=== PATIENT | male | born 1975 | race Hispanic/Latino ===

== ENCOUNTER 2023-02-10 19:52 | Emergency (ER) | payer BC ==
--- OUTSIDE RECORDS SUMMARY | 2023-02-10 19:56 | XMS REPORT | Continuity of Care Document ---
:1975 Author Organization [facility] t Address [address] [place] [address] [place] [id number] Care Team Providers Name Role Phone PCP, PATIENT DOES NOT HAVE A Primary Care Physician UnavailARIES Resendiz Attending Clinician Unavailable Aries Kearney MD Attending Clinician SHANNON ROJAS Attending Clinician Unavailable Shannon Rojas MD Attending Clinician ANTOINE GARCIA Attending Clinician Unavailable ANTOINE GARCIA Attending Clinician Unavailable Doctor Unassigned, [place] Attending Clinician Unavailable Luis Newton MD Attending Clinician LUIS NEWTON Attending Clinician Unavailable ARIES KEARNEY Admitting Clinician Unavailable SHANNON ROJAS Admitting Clinician Unavailable Problems Condition Condition Condition Status Onset Resolution Last Treating Co mments Source Name Details Category Date Date Treatment Clinician Date Essential Essential Disease Active 2017-08 Uni vers hypertensi hypertensi 2-03 it y of on on 00:00: [address] Drug abuse Drug abuse Disease Active 2017-08 U nivers 2-03 ity of 00:00: [address] Family Family Disease Active 2017-08 Univers history of history of 2-03 [place] of early CAD [place] [address] [place] [address] Obesity Obesity Disease Active 2017-08 Univers (BMI (BMI 2-02 ity of 30-39.9) 30-39.9) 00:00: [place] 00 [facility] Chest pain Chest pain Disease Active 2017-08 U nivers 09-15 ity of 00:00: [place] 00 [facility] Allergies, Adverse Reactions, Alerts Allergy Allergy Status Severity Reaction(s) Onset Inactive Treating Comm ents Source Name Type Date Date Clinician CODEINE DRUG Active Unknown-Cmnt Uni vers INGREDI 6-10 ity of 00:00: [place] 00 Medical Branch Codeine Propensi Active Unknown - constipat U nivers ty to See comments 6- ion ity of adverse 00:00: [place] reaction 00 Medical s Branch HYDROCOD DRUG Active Other-Cmnt 2017-08 Univ ers ONE INGREDI 09-15 ity of 00:00: [place] 00 Medical Branch Hydrocod Propensi Active Other - See 2017-08 Constipa t Univers one ty to comments 09-15 ion ity of adverse 00:00: [place] reaction 00 [facility] s Branch Social History Social Habit Start Date Stop Date Quantity Comments Source History of Snuff User University of tobacco use [facility] Exposure to 2022-12-10 2022-12-20 Not sure University of SARS-CoV-2 00:00:00 22:39:00 [facility] (event) [place] Alcohol intake 2022-12-20 2022-12-20 Current drinker Unive rsity of 00:00:00 00:00:00 of alcohol [facility] (finding) [place] Tobacco use and 2018-07-15 2018-07-15 User of smokeless Un iversity of exposure 00:00:00 00:00:00 tobacco [facility] Alcohol Comment 2018-07-15 2018-07-15 a couple of beers Un iversity of 00:00:00 00:00:00 a day [facility] Sex Ass[birth year] At [birth year] Universit y of 00:00:00 00:00:00 [facility] Smoking Status Start Date Stop Date Source Ex-smoker 2018-07-15 00:00:00 2018-07-15 00:00:00 Universi ty of [facility] Medications Ordered Filled Start Stop Current Ordering Indication Dosage Frequency Signature Comments Components Source Medication Medication Date Date Medication? Clinician (SIG) Name Name lactulose 2022- No 30mL 30 mL, Unive rs (CEPHULAC) 5- 05-10 Oral, ity of solution 30 05:00: 04:57 [place]CE[place] 1 [place] :00 dose, On Medical Wed Branch 12/21/22 at 0000, LUMA NaCl 0.9% 2022- No 1000mL at 999 Uni vers (NS) bolus 510 05-10 mL/hr, ity of infusion 04:00: 06:08 1,000 mL, [place] 1,000 mL 00 :00 IV Medical Infusion, Branch ONCE, 1 dose, On [facility] 12/20/22 at 2300, STAT furosemide 2022- No 40mg 40 mg, IV U nivers (LASIX) 12-21 05-10 Push, ity of injection 04:00: 04:20 ONCE, 1 [place] 40 mg 00 :00 dose, On [facility] 12/20/22 Branch at 2300, LUMA ipratropium 2022- No 3mL 3 mL, Univ ers -albuteroL 12-21 05-10 Inhalation it y of (DUONEB) 04:00: 04:15 , ONCE, 1 [place] 0.5 mg-3 00 :00 dose, On Medical mg(2.5 mg Mon12/20/22 Bran ch base)/3 mL at 2300, nebulizer LUMA solution 3 mL methylpredn 2022- No 125mg 125 mg, IV Univers isolone sod 12-21-10 Piggyback, i ty of succ 04:00: 04:20 ONCE, 1 [place] (SOLU-MEDRO 00 :00 dose, On Medi srikanth L) [facility] 12/20[facility]22 Branch injection at 2300, 125 mg STAT aspirin 2022- No 325mg 325 mg, Unive rs tablet 325 12-21 05-10 Oral, ity of mg 03:45: 03:50 ONCE, 1 [place] 00 :00 dose, On Medical [facility] 12/20/22 Branch at 2245, STAT nisoldipine 2022-0 Yes 20mg Take 20 mg Univers (SULAR 5-10 by mouth ity of ORAL) 00:44: daily. [address] LISINOPRIL 2022-0 Yes Take by Univ ers ORAL 5-10 mouth. ity of 00:44: [address] polyethylen 2022-0 Yes [id number] 1{packe Take 1 Univers e glycol 5-10 t} Packet by ity of 3350 00:00: mouth [place] (MIRALAX) 00 every 2 Medical 17 gram (two) Branch powder hours as needed for Constipati on for up to 12 doses. ondansetron Yes [id number] 4mg Take 1 Univers 4 mg 5-10 tablet by ity of disintegrat 00:00: mouth [place] ing tablet 00 every 8 Medica l (eight) Branch hours as needed for Nausea and Vomiting (N/V) for up to 10 doses. albuterol Yes [id number] 2{puff} Inhale 2 Univers 90 5-10 Puffs ity of mcg/actuati 00:00: every 4 [place] on inhaler 00 (four) Medical hours as Branch needed for Wheezing or Shortness of Breath. predniSONE 0 2022- Yes [id number] 20mg Take 1 Univers 20 mg 5-10 05-13 tablet by ity of tablet 00:00: 04:59 mouth in [place] 00 :00 the Medical morning Branch and 1 tablet in the evening. Do all this for 2 days. glycerin/mi 2022- Yes [id number] 225mL Insert 225 Univers neral oil, 5-10 05-11 mL into ity o f AGLO ENEMA, 00:00: 04:59 rectum [place] Enem 00 :00 once now Medical for 1 Branch dose. FENTanyl PF 2022- No 50ug 50 mcg, Un grupo (SUBLIMAZE 2-15 02-15 Slow IV ity o f (PF)) 08:45: 08:07 Push, [place] injection 00 :00 ONCE, 1 Medical 50 mcg dose, On Branch Mon09/28/22 at 0245, Routine iopamidol 0 2022- No [id number] 100mL 100 mL, Univers (ISOVUE 2-15 02-15 Intravenou ity o f 370-500 mL) 07:45: 07:45 s, ONCE, 1 [place] injection 00 :00 dose, On Medica l 100 mL Mon09/28/22 at 0145, Routine NaCl 0.9% Yes 1000mL at 999 Univ ers (NS) IV 2-15 mL/hr, ity of infusion 06:45: Intravenou [place] 1,000 mL 00 s, Medical CONTINUOUS Branch , Starting on Mon09/28/22 at 0045, Until Discontinu ed, Routine ketorolac 2022- No 30mg 30 mg, Unive rs (TORADOL) 2-15 -15 Slow IV ity of injection 06:45: 05:54 Push, [place] 30 mg 00 :00 ONCE, 1 Medical dose, On Branch Mon09/28/22 at 0045, Routine dicyclomine 0 Yes [id number] 20mg Take 1 Univers 20 mg 2-15 tablet by ity of tablet 00:00: mouth [place] 00 every 6 Medical (six) Branch hours as needed for Abdominal pain. ondansetron 0 Yes [id number] 4mg Take 1 Univers (ZOFRAN) 4 2-15 tablet by ity of mg tablet 00:00: mouth [place] 00 every 8 Medical (eight) Branch hours as needed for Nausea and Vomiting (N/V). pantoprazol 0 Yes [id number] 40mg Take 1 Univers e 2-15 tablet by ity of (PROTONIX) 00:00: mouth in [place] 40 mg EC 00 the Medical tablet morning. Branch dicyclomine 0 Yes [id number] 20mg Take 1 Univers 20 mg 2-15 tablet by ity of tablet 00:00: mouth [place] 00 every 6 Medical (six) Branch hours as needed for Abdominal pain. ondansetron 0 Yes [id number] 4mg Take 1 Univers (ZOFRAN) 4 2-15 tablet by ity of mg tablet 00:00: mouth [place] 00 every 8 Medical (eight) Branch hours as needed for Nausea and Vomiting (N/V). pantoprazol 0 Yes [id number] 40mg Take 1 Univers e 2-15 tablet by ity of (PROTONIX) 00:00: mouth in [place] 40 mg EC 00 the Medical tablet morning. Branch gentamicin 2021-08- No 2[drp] 2 Drop, U nivers (GENOPTIC) 006-09 Left Eye, ity of 0.3 % 17:00: 17:03 ONCE, 1 [place] ophthalmic 00 :00 dose, On Medic al drops 2 [place] Branch Drop 06/09/22 at 1200, LUMA tetracaine 2021-08- No 2[drp] 2 Drop, U nivers (PONTOCAINE 0-27 06-09 Left Eye, it y of ) 0.5 % 15:36: 15:45 ONCE, 1 [place] ophthalmic 00 :00 dose, On Medic al drops 2 [facility] Branch Drop 06/09/22 at 1045, Routine LISINOPRIL 2021-08 Yes Take by [facility] ers ORAL 0-27 mouth. ity of 09:32: [address] LISINOPRIL 2021-08 Yes Take by [facility] ers ORAL 0-27 mouth. ity of 09:32: [address] gentamicin 2021-08- No [id number] 1[drp] Place 1 Univers 0.3 % 0-27 06-15 [id number] Drop in ity of ophthalmic 00:00: 04:59 [place] drops 00 :00 every 1 Medical (one) hour Branch for 5 days. ketorolac 2021-08- No [id number] 1[drp] Place 1 Univers 0.4 % 0-06-13 [id number] Drop in ity of ophthalmic 00:00: 04:59 left eye 4 [place] solution 00 :00 (four) Medical times Branch daily for 3 days. ketorolac 2019- No 30mg 30 mg, Unive rs (TORADOL) 01-09 Slow IV ity of injection 03:45: 02:44 Push, [place] 30 mg 00 :00 ONCE, 1 Medical dose, [facility] Branch 01/09/20 at 2245, Routine
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 [address] nisoldipine 2017-08 Yes 20mg Take 20 mg Univers (SULAR 2-04 by mouth ity of ORAL) 21:32: daily. [address] nisoldipine 2017-08 Yes 20mg Take 20 mg Univers (SULAR 2-04 by mouth ity of ORAL) 21:32: daily. [address] nisoldipine 2017-08 Yes 20mg Take 20 mg Univers (SULAR 2-04 by mouth ity of ORAL) 15:32: daily. [address] nisoldipine 2017-08 Yes 20mg Take 20 mg Univers (SULAR 2-04 by mouth ity of ORAL) 15:32: daily. [address] nisoldipine 2018- Yes 20mg Take 20 mg Univers (SULAR 2-04 by mouth ity of ORAL) 15:32: daily. [address] Immunizations Ordered Filled Immunization Date Status Comments [facility] Immunization Name Name Influenza Virus 2018-07-17 Completed Universit y of Vaccine Quad .5 mL 00:00:00 [facility] IM 6+ [place] Branch Influenza Virus 2018-07-17 Completed Universit y of Vaccine Quad .5 mL 00:00:00 [facility] IM 6+ [place] Branch Influenza Virus 2018-07-17 Completed Universit y of Vaccine Quad .5 mL 00:00:00 [facility] 6+ MO Branch Influenza Virus 2018-07-17 Completed Universit y of Vaccine Quad .5 mL 00:00:00 [facility] 6+ MO Branch Influenza Virus 2018-07-17 Completed Universit y of Vaccine Quad .5 mL 00:00:00 [facility] 6+ MO Branch Influenza Virus 2018-07-17 Completed Universit y of Vaccine Quad .5 mL 00:00:00 [facility] 6+ MO Branch Influenza Virus 2018-07-17 Completed Universit y of Vaccine Quad .5 mL 00:00:00 [facility] 6+ MO Branch Vital Signs Vital Name Observation Time Observation Value Comments Source Systolic blood 2022-12-21 06:00:00 154 mm[Hg] Univer sity of pressure [facility] Diastolic blood 2022-12-21 06:00:00 93 mm[Hg] Unive rsity of pressure [facility] Heart rate 2022-12-21 06:00:00 71 /min [facility] Respiratory rate 2022-12-21 06:00:00 18 /min [facility] acute hospital Oxygen saturation in 2022-12-21 06:00:00 97 /min [facility] Arterial blood by [facility] Pulse oximetry [place] Body temperature 2022-12-21 03:40:00 36.72 Louise [facility] Body height 2022-12-21 03:40:[address] [facility] Body weight 2022-12-21 03:40:[address] [facility] BMI 2022-12-21 03:40:00 33.45 kg/m2 [facility] [place] [facility] Systolic blood 2022-09-28 08:07:00 130 mm[Hg] Univer sity of pressure [place] [facility] Diastolic blood 2022-09-28 08:07:00 83 mm[Hg] Unive rsity of pressure [place] [facility] Heart rate 2022-09-28 08:07:00 67 /min [facility]i ty [facility] [place] [facility] Respiratory rate 2022-09-28 08:07:00 17 /min Univ ersity of [place] [facility] Oxygen saturation in 2022-09-28 08:07:00 99 /min University of Arterial blood by [place] Medi srikanth Pulse oximetry Branch Body temperature 2022-09-28 04:45:00 36.61 Louise Univ ersity [facility] [place] [facility] Body height 2022-09-28 04:45:00 172.7 cm [facility] [place] [facility] Body weight 2022-09-28 04:45:00 106.595 kg [facility] [place] [facility] BMI 2022-09-28 04:45:00 35.73 kg/m2 [facility] [place] [facility] Systolic blood 2022-06-09 14:16:00 157 mm[Hg] Univer sity of pressure [place] [facility] Diastolic blood 2022-06-09 14:16:00 88 mm[Hg] Unive rsity of pressure [place] [facility] Heart rate 2022-06-09 14:16:00 84 /min [facility] [place] [facility] Body temperature 2022-06-09 14:16:00 36.94 Louise Univ ersity [facility] [place] [facility] Respiratory rate 2022-06-09 14:16:00 18 /min Univ ersity [facility] [place] [facility] Body height 2022-06-09 14:16:00 172.7 cm [facility] [place] [facility] Body weight 2022-06-09 14:16:00 106.595 kg [facility] [place] [facility] BMI 2022-06-09 14:16:00 35.73 kg/m2 [facility] [place] [facility] Oxygen saturation in 2022-06-09 14:16:00 97 /min University of Arterial blood by [place] Medi srikanth Pulse oximetry Branch Heart rate 2020-01-24 03:42:11 69 /min [facility] [place] [facility] Body temperature 2020-01-24 03:42:11 36.44 Louise Univ ersity [facility] [place] [facility] Respiratory rate 2020-01-24 03:42:11 20 /min Univ ersity [facility] [place] [facility] Systolic blood 2020-01-24 03:40:00 154 mm[Hg] Univer sity of pressure [place] [facility] Diastolic blood 2020-01-24 03:40:00 98 mm[Hg] Unive rsity of pressure [place] [facility] Body height 2020-01-24 03:40:00 170.2 cm [facility] [place] [facility] Body weight 2020-01-24 03:40:00 106.595 kg [facility] [place] [facility] BMI 2020-01-24 03:40:00 36.81 kg/m2 [facility] [place] [facility] Systolic blood 2020-01-22 20:58:22 171 mm[Hg] Univer sity of pressure [place] [facility] Diastolic blood 2020-01-22 20:58:22 105 mm[Hg] Unive rsity of pressure [place] [facility] Body temperature 2020-01-22 20:58:22 36.44 Louise Univ ersity [facility] [place] [facility] Respiratory rate 2020-01-22 20:58:22 20 /min Univ ersity [facility] [place] [facility] Heart rate 2020-01-22 20:52:00 103 /min [facility] [place] [facility] Body height 2020-01-22 20:52:00 170.2 cm [facility] [place] [facility] Body weight 2020-01-22 20:52:00 104.327 kg [facility] [place] [facility] BMI 2020-01-22 20:52:00 36.02 kg/m2 [facility] [place] [facility] Oxygen saturation in 2020-01-22 20:52:00 98 /min University of Arterial blood by [place] [employer] [facility]rikanth Pulse oximetry Branch Systolic blood 2020-01-10 02:30:00 154 mm[Hg] Univer sity of pressure [place] [facility] Diastolic blood 2020-01-10 02:30:00 105 mm[Hg] Unive rsity of pressure [facility] [place] [facility] Heart rate 2020-01-10 02:30:00 83 /min [facility] [place] [facility] Respiratory rate 2020-01-10 02:30:00 23 /min Univ ersity [facility] [place] [facility] Oxygen saturation in 2020-01-10 02:30:00 98 /min University of Arterial blood by [employer] srikanth Pulse oximetry Branch Body temperature 2020-01-10 00:26:00 36.89 Louise [facility] Body height 2020-01-10 00:26:[address] [facility] Body weight 2020-01-10 00:26:[address] [facility] BMI 2020-01-10 00:26:00 35.73 kg/m2 [facility] Procedures Procedure Date / Time Performing Clinician Source Performed D-DIMER 2022-12-21 04:56:00 Aries Kearney [facility] RAPID STREP SCREEN FOR 2022-12-21 04:18:00 Aries Kearney [facility] GROUP A [facility] COVID-19 (ID NOW RAPID 2022-12-21 04:18:00 Aries Kearney [facility] TESTING) [facility] XR ABDOMEN 2 VW 2022-12-21 04:16:00 Aries Kearney [facility] XR CHEST 2 VW 2022-12-21 04:01:00 Aries Kearney [facility] LIPASE 2022-12-21 03:54:00 Aries Kearney [facility] TROPONIN I 2022-12-21 03:54:00 Aries Kearney [facility] COMP. METABOLIC PANEL 2022-12-21 03:54:00 Aries Kearney [facility] ([id number]) [facility] CBC WITH DIFF 2022-12-21 03:54:00 Aries Kearney [facility] CONSENT/REFUSAL FOR 2022-12-21 03:35:49 Doctor Unassigned, No [facility] DIAGNOSIS AND TREATMENT Name Medical Branch LIPASE 2022-09-28 05:53:00 Shannon Rojas [facility] COMP. METABOLIC PANEL 2022-09-28 05:53:00 Shannon Rojas [facility] ([id number]) [facility] CBC WITH DIFF 2022-09-28 05:53:00 Shannon Rojas [facility] NOTICE OF PRIVACY 2022-09-28 04:21:22 Doctor Unassigned, No [facility] PRACTICES Name Medical Branch CONSENT/REFUSAL FOR 2022-09-28 04:20:50 Doctor Unassigned, No [facility] Name Medical Branch CONSENT/REFUSAL FOR 2022-06-09 14:12:56 Doctor [facility]igned, [facility] Name Medical Branch CT HEAD WO CONTRAST 2020-01-24 04:29:39 Shannon Rojas [facility] CONSENT/REFUSAL FOR 2020-01-24 03:34:06 Doctor Unassigned, No [facility]AT[facility] Name [facility] Branch CREATINE KINASE 2020-01-22 21:04:00 [facility] TROPONIN I 2020-01-22 21:04:[facility] 2020-01-22 21:04:00 Luis Newton [facility] ([id number]) (ALB,T.PRO,BILI [facility] Branch T,BU/BC,ALT,AST,ALK PHOS) BASIC METABOLIC PANEL 2020-01-22 21:04:00 Herbie Luis [facility] (NA, K, CL, CO2, Medical Branch GLUCOSE, BUN, CREATININE, CA) CBC WITH DIFFERENTIAL 2020-01-22 21:04:00 Herbie [facility] PROTHROMBIN TIME / INR 2020-01-22 21:04:00 Herbie Luis [facility] ACTIVATED PARTIAL 2020-01-22 21:04:00 Herbie [facility] THRMPLAS LEENA [facility] EKG-12 LEAD 2020-01-22 21:03:26 Herbie [facility] HEAD WO CONTRAST 2020-01-10 01:59:59 Shannon Rojas [facility] ADC / LCC - DRUG SCREEN 2020-01-10 01:37:00 Shannon Rojas [facility] TRIAGE Medical Branch COVID-19 (ID NOW RAPID 2020-01-10 01:37:[address] [facility] TESTING) Medical Branch LIPASE 2020-01-10 01:34:00 Shannon Rojas [facility] MAGNESIUM 2020-01-10 01:34:00 Shannon Rojas [facility] TROPONIN I 2020-01-10 01:34:00 Shannon Rojas [facility] COMP. METABOLIC PANEL 2020-01-10 01:34:00 Shannon Rojas [facility] ([id number]) [facility] CBC WITH DIFFERENTIAL 2020-01-10 01:34:00 Shannon Rojas [facility] EKG-12 LEAD 2020-01-10 01:20:08 Shannon Rojas [facility] NOTICE OF PRIVACY 2020-01-10 00:17:43 Doctor Unassigned, No Univ [facility] PRACTICES Name Medical Branch CONSENT/REFUSAL FOR 2020-01-10 00:17:22 Doctor Unassigned, No Un [facility] DIAGNOSIS AND TREATMENT Name [facility] Encounters Start End Encounter Admission Attending Care Care Encounter Source Date/Time Date/Time Type Type Clinicians Facility Department ID 2022-12-20 2022-12-21 [id number] Univers 22:45:00 01:16:[address] [facility] 2022-12-20 2022-12-21 [facility] [id number] Univers 22:45:00 01:16:00 Aries CAMACHO [id number] i ty [facility] [id number] [facility] [id number] [address] 2022-09-27 2022-09-28 Emergency X [facility] ERT [id number] Univers 22:48:00 02:20:[address] [facility] 2022-09-27 2022-09-28 Emergency Pending sale to [facility] [id number] Univers 22:48:00 02:20:00 Shannon Mario NARINDER [id number] ity [facility] [id number] [facility] [id number] [address] 2022-06-09 2022-06-09 Emergency X ANTOINE GARCIA [facility] 1 [id number] Univers 09:17:00 12:10:00 ANTOINE GARCIA itsabina of [facility] 2022-06-09 2022-06-09 Emergency David, [facility] [id number] Univers 09:17:00 12:10:00 Antoine CAMACHO [id number] i ty [facility] [id number] [facility] [id number] [address] 2022-06-09 2022-06-09 Orders Doctor [facility] [id number] Univers 00:00:00 00:00:00 Only Unassigned, GIANNA [id number] ity of [facility] [id number] [facility] [id number] [address] 2020-01-23 2020-01-24 Emergency X [facility] ERT [id number] Univers 22:46:07 00:19:00 SHANNON ruiz [facility] 2020-01-23 2020-01-24 Emergency Pending sale to [facility] [id number] Univers 22:46:07 00:19:00 Clifforddaisygerardo Martin Narinder [id number] ity of [place] [id number] [facility] [id number] [address] 2020-01-22 2020-01-22 Emergency [facility] [id number] Univers 15:47:57 16:43:00 Luis [place] [id number] i ty of [place] [id number] [facility] [id number] [address] 2020-01-22 2020-01-22 Emergency X [facility] ERT [id number] Univers 15:47:57 15:47:57 LUIS reysabina [facility] 2020-01-09 2020-01-09 Emergency Shannon Rojas [facility] [id number] Univers 19:21:02 22:02:00 Deidrealison Cliffordarnie Camacho [id number] ity of [place] [id number] [facility] [id number] [place] [id number] Branch 2020-01-09 2020-01-09 Emergency X CRYSTAL MEALON ERT [id number] Univers 19:21:02 22:02:00 SHANNON ruiz [facility] Results Test Description Test Time Test Comments Results Result Comments Source Troponin I 2022-12-21 04:30:03 Test Item Value Reference Range Interpretation Comme nts TROPONIN I (test code = 2976413317) 0.003 ng/mL <=0.034 JAZZMINE (test code = JAZZMINE) Reference (Normal) Range (defined by the 99th percentile reference limit): <= 0.034 ng/mL Note: Cardiac troponin begins to rise 3-4 hours after the onset of ischemia. Repeat in 4-6 hours if the sample was drawn within 3-4 hours of the onset of the symptom and found normal. Diagnosis of myocardial injury is made with acute changes in cTn concentrations with at least one serial sample above the 99th percentile upper reference limit (URL), taken together with the patient's clinical presentation. Biotin has been reported to cause a negative bias, interpret results relative to patient's use of biotin. Lab Interpretation (test code = Normal 66863-8) [facility] ([id number][facility]2022-12-21 04:17:01 Test Item Value Reference Range Interpretation Comments NA (test code = 136 mmol/L 135-145 4841999363) K (test code = 4.6 mmol/L 3.5-5.0 8749016150) CL (test code = 101 mmol/L 98-108 0888330326) CO2 TOTAL (test code = 24 mmol/L 23-31 7629403657) AGAP (test code = 11 2-16 7540215944) BUN (test code = 11 mg/dL 7-23 4506100330) GLUCOSE (test code = 107 mg/dL 70-110 1704269460) CREATININE (test code = 1.27 mg/dL 0.60-1.25 H 6530738271) TOTAL BILI (test code = 0.5 mg/dL 0.1-1.4 [id number]) CALCIUM (test code = 9.5 mg/dL 8.6-10.6 3726646364) T PROTEIN (test code = 8.1 g/dL 6.3-8.2 5724847835) ALBUMIN (test code = 4.8 g/dL 3.5-5.0 7242246458) ALK PHOS (test code = 60 U/L 34-122 0884754556) ALTv (test code = 32 U/L 5-50 1742-6) AST(SGOT) (test code = 28 U/L 13-40 3958615415) eGFR (test code = 61.3 mL/min/1.73m2 3196066237) JAZZMINE (test code = JAZZMINE) Association of Glomerular Filtration Rate (GFR) and Staging of Kidney Disease* + --+ --+ ------+| GFR (mL/min/1.73 m2) ?| With Kidney Damage ?| ?Without Kidney Damage+ --------+ --------+ +| ?>90 ?| ?Stage one ?| ? Normal ?+ ---+ ---+ -------+| ?60-89 ?| ?Stage two ?| ? Decreased GFR ? + --+ --+ ------+| ?30-59 ?| ?Stage three ?| ? Stage three ? + --+ --+ ------+| ?15-29 ?| ?Stage four ? | ? Stage four ?+ ---+ ---+ -------+| ?<15 (or dialysis) ? ?| ?Stage five ? | ? Stage five ?+ ---+ ---+ -------+ *Each stage assumes the associated GFR level has been in effect for at least three months. ?Stages 1 to 5, with or without kidney disease, indicate chronic kidney disease. Notes: Determination of stages one and two (with eGFR >59mL/min/1.73 m2) requires estimation of kidney damage for at least three months as defined by structural or functional abnormalities of the kidney, manifested by either:Pathological abnormalities or Markers of kidney damage (including abnormalities in the composition of the blood or urine or abnormalities in imaging tests). Lab Interpretation Abnormal (test code = 39914-8) [facility] [id number] 04:16:20 Test Item Value Reference Range Interpretation Comments LIPASE (test code = 8638031375) 74 U/L 0-220 Lab Interpretation (test code = Normal 72020-9) [facility] with [id number] 04:05:41 Test Item Value Reference Range Interpretation Comments WBC (test code = 5.63 See_Comment [Automated 6690-2) message] The sy stem which generated this result transmitted reference range : 4.20 - 10.70 10*3/?L. The reference range was not used to interpret this result as normal/abnormal . RBC (test code = 4.92 See_Comment [Automated 789-8) message] The sy stem which generated this result transmitted reference range : 4.26 - 5.52 10*6/?L. The reference range was not used to interpret this result as normal/abnormal . HGB (test code = 16.2 g/dL 12.2-16.4 718-7) HCT (test code = 46.8 % 38.4-49.3 4544-3) MCV (test code = 95.1 fL 81.7-95.6 787-2) MCH (test code = 32.9 pg 26.1-32.7 H 785-6) MCHC (test code = 34.6 g/dL 31.2-35.0 786-4) RDW-SD (test code = 43.6 fL 38.5-51.6 85785-2) RDW-CV (test code = 12.4 % 12.1-15.4 788-0) PLT (test code = 274 See_Comment [Automated 777-3) message] The sy stem which generated this result transmitted reference range : 150 - 328 10*3/ ?L. The reference r leonarda was not used to interpret this result as normal/abnormal . MPV (test code = 9.8 fL 9.8-13.0 63991-0) NRBC/100 WBC (test 0.0 See_Comment [Automat ed code = 3102442835) message] The system which generated this result transmitted reference range : 0.0 - 10.0 /100 WBCs. The refer ence range was not u sed to interpret th is result as normal/abnormal . NRBC x10^3 (test code See_Comment [Auto mated = 9634826669) message] The s ystem which generated this result transmitted reference range : 10*3/?L. The reference range was not used to interpret this result as normal/abnormal . GRAN MAT (NEUT) % 62.9 % (test code = 770-8) IMM GRAN % (test code 0.90 % = 9606793015) LYMPH % (test code = 26.1 % 736-9) MONO % (test code = 8.2 % 5905-5) EOS % (test code = 1.2 % 713-8) BASO % (test code = 0.7 % 706-2) GRAN MAT x10^3(ANC) 3.54 10*3/uL 1.99-6.95 (test code = 8230154784) IMM GRAN x10^3 (test 0.05 10*3/uL 0.00-0.06 code = 0226770172) LYMPH x10^3 (test code 1.47 10*3/uL 1.09-3.23 = 731-0) MONO x10^3 (test code 0.46 10*3/uL 0.36-1.02 = 742-7) EOS x10^3 (test code = 0.07 10*3/uL 0.06-0.53 711-2) BASO x10^3 (test code 0.04 10*3/uL 0.01-0.09 = 704-7) Lab Interpretation Abnormal (test code = 66237-3) [facility]. METABOLIC PANEL ([id number])2022-09-28 06:22:14 Test Item Value Reference Range Interpretation Comments NA (test code = 136 mmol/L 135-145 6846643095) K (test code = 4.3 mmol/L 3.5-5.0 6329345489) CL (test code = 103 mmol/L 98-108 5904197297) CO2 TOTAL (test code 25 mmol/L 23-31 = 7887577923) AGAP (test code = 8 2-16 0703842471) BUN (test code = 12 mg/dL 7-23 0002490284) GLUCOSE (test code = 107 mg/dL 70-110 7602020379) CREATININE (test code 0.71 mg/dL 0.60-1.25 = 5020975439) TOTAL BILI (test code 0.4 mg/dL 0.1-1.1 = 0036960694) CALCIUM (test code = 8.7 mg/dL 8.6-10.6 6222674173) T PROTEIN (test code 7.3 g/dL 6.3-8.2 = 5318016132) ALBUMIN (test code = 4.5 g/dL 3.5-5.0 9309586748) ALK PHOS (test code = 82 U/L 34-122 7175271004) ALTv (test code = 25 U/L 5-50 1742-6) AST(SGOT) (test code 20 U/L 13-40 = 7595471058) eGFR (test code = 120.0 mL/min/1.73m2 3121280051) JAZZMINE (test code = JAZZMINE) Association of Glomerular Filtration Rate (GFR) and Staging of Kidney Disease* + + +- +| GFR (mL/min/1.73 m2) ?| With Kidney Damage ?| ?Without Kidney Damage+ ------+ ----+ ------+| ?>90 ?| ?Stage one ?| ? Normal ?+ -+ + -+| ?60-89 ?| ?Stage two ?| ? Decreased GFR ? + + +- +| ?30-59 ?| ?Stage three ?| ? Stage three ? + + +- +| ?15-29 ?| ?Stage four ? | ? Stage four ?+ -+ + -+| ?<15 (or dialysis) ? ?| ?Stage five ? | ? Stage five ?+ -+ + -+ *Each stage assumes the associated GFR level has been in effect for at least three months. ?Stages 1 to 5, with or without kidney disease, indicate chronic kidney disease. Notes: Determination of stages one and two (with eGFR >59mL/min/1.73 m2) requires estimation of kidney damage for at least three months as defined by structural or functional abnormalities of the kidney, manifested by either:Pathological abnormalities or Markers of kidney damage (including abnormalities in the composition of the blood or urine or abnormalities in imaging tests). [facility]22[facility]14 Test Item Value Reference Range Interpretation Comments LIPASE (test code = 3629439383) 81 U/L 0-220 Lab Interpretation (test code = Normal 81450-1) [facility] WITH [id number] 06:09:33 Test Item Value Reference Range Interpretation Comments WBC (test code = 6.68 See_Comment [Automated 6690-2) message] The sy stem which generated this result transmitted reference range : 4.20 - 10.70 10*3/?L. The reference range was not used to interpret this result as normal/abnormal . RBC (test code = 4.47 See_Comment [Automated 789-8) message] The sy stem which generated this result transmitted reference range : 4.26 - 5.52 10*6/?L. The reference range was not used to interpret this result as normal/abnormal . HGB (test code = 14.8 g/dL 12.2-16.4 718-7) HCT (test code = 42.2 % 38.4-49.3 4544-3) MCV (test code = 94.4 fL 81.7-95.6 787-2) MCH (test code = 33.1 pg 26.1-32.7 H 785-6) MCHC (test code = 35.1 g/dL 31.2-35.0 H 786-4) RDW-SD (test code = 43.8 fL 38.5-51.6 38975-3) RDW-CV (test code = 12.6 % 12.1-15.4 788-0) PLT (test code = 281 See_Comment [Automated 777-3) message] The sy stem which generated this result transmitted reference range : 150 - 328 10*3/ ?L. The reference r leonarda was not used to interpret this result as normal/abnormal . MPV (test code = 9.5 fL 9.8-13.0 L 28119-8) NRBC/100 WBC (test 0.0 See_Comment [Automat ed code = 6339578121) message] The system which generated this result transmitted reference range : 0.0 - 10.0 /100 WBCs. The refer ence range was not u sed to interpret th is result as normal/abnormal . NRBC x10^3 (test code See_Comment [Auto mated = 8404788113) message] The s ystem which generated this result transmitted reference range : 10*3/?L. The reference range was not used to interpret this result as normal/abnormal . GRAN MAT (NEUT) % 53.7 % (test code = 770-8) IMM GRAN % (test code 1.30 % = 7057783547) LYMPH % (test code = 29.5 % 736-9) MONO % (test code = 10.9 % 5905-5) EOS % (test code = 4.0 % 713-8) BASO % (test code = 0.6 % 706-2) GRAN MAT x10^3(ANC) 3.58 10*3/uL 1.99-6.95 (test code = 3657234622) IMM GRAN x10^3 (test 0.09 10*3/uL 0.00-0.06 H code = 0905633066) LYMPH x10^3 (test code 1.97 10*3/uL 1.09-3.23 = 731-0) MONO x10^3 (test code 0.73 10*3/uL 0.36-1.02 = 742-7) EOS x10^3 (test code = 0.27 10*3/uL 0.06-0.53 711-2) BASO x10^3 (test code 0.04 10*3/uL 0.01-0.09 = 704-7) Lab Interpretation Abnormal (test code = 65513-1) [facility] [id number] 04:33:44No acute findings. HISTORY:Headache, acute, normal neuro exam TECHNIQUE: Noncontrast head CT was performed. COMPARISON:01/09/2020. FINDINGS: The ventricles and sulci are appropriate for patient's age. There is no midline shift. The basal cisterns are preserved. No largevascular territory infarction, intracranial hemorrhage or mass effect isseen. The extracranial tissues demonstrate no acute findings. [facility], Radiant Results Inft User - 01/23/2020 11:34 PM CDTHISTORY:Headache, acute, normal neuro exam TECHNIQUE: Noncontrast head CT was performed.COMPARISON:01/09/2020.FINDINGS:The ventricles and sulci are appropriate for patient's age.There is no midline shift. The basal cisterns are preserved. No largevascular territory infarction, intracranial hemorrhage or mass effect isseen.The extracranial tissuesdemonstrate no acute findings.IMPRESSIONNo acute findings.[facility] HospitalTroponin [id number] 21:34:00 Test Item Value Reference Range Interpretation Comments TROPONIN I (test <0.012 See_Comment [Automated code = 3378580828) message] The system which generated this result transmitted reference range : <=0.034 ng/mL. The reference range was not used to interpr et this result as normal/abnormal . JAZZMINE (test code = Equal or Less than JAZZMINE) 0.034 ng/ml---Normal ?Note: Cardiac troponin begins to rise 3-4 hours after the onset of ischemia. Repeat in 4-6 hours if the sample was drawn within 3-4 hours of the onset of the symptom and found normal. Between 0.035 and 0.120 ng/mL--- Borderline. Questionable myocardial injury or necrosis ? ?Note: Serial measurement may be necessary to confirm or exclude the diagnosis of myocardial injury or necrosis; Clinical correlation (symptoms, EKGs, imaging studies, and others) required; Repeat in 4-6 hours if clinically indicated. ? Equal or Higher than 0.121 ng/mL---Abnormal. Myocardial Injury or Necrosis Likely ? Biotin has been reported to cause a negative bias, interpret results relative to patient's use of biotin. ? Lab Interpretation Normal (test code = 34617-3) [facility]Proth[facility]bin [facility] (PT[facility] / [id number] 21:25:00 Test Item Value Reference Range Interpretation Comments PROTIME PATIENT (test See_Comment [Auto mated message] code = 5964-2) The system [employer] ich generated this result transmitted ref erence range: 12.0 - 1 4.7 Seconds. The re ference range was not u sed to interpret this result as normal/abnor mal. INR (test code = 6301-6) Nor mal INR <1.1; Warfarin Therap eutic range 2.0 to 3. 0 or 2.5 to 3.5, dep ending upon the indica tions. Lab Interpretation (test Normal code = 18867-5) [facility]PTT2020-[facility] 21:24:00 Test Item Value Reference Range Interpretation Comments APTT Patient (test See_Comment [Automat ed code = 3173-2) message] The system which generated this result transmitted reference range : 23 - 38 Seconds . The reference range was not used to interpr et this result as normal/abnormal . JAZZMINE (test code = JAZZMINE) [facility] mean normal value for aPTT is 30 seconds. Lab Interpretation Normal (test code = 43594-4) [facility] Metabolic Panel (NA, K, CL, CO2, GLUCOSE, BUN, CREATININE, CA)2020-01-22 21:23:00 Test Item Value Reference Range Interpretation Comments NA (test code = 141 mmol/L 135-145 5641344208) K (test code = 4.1 mmol/L 3.5-5 8116903569) CL (test code = 106 mmol/L 98-108 4356306501) CO2 TOTAL (test code = 25 mmol/L 23-31 3534540779) AGAP (test code = 2-16 7420905959) BUN (test code = 16 mg/dL 7-23 2325648809) GLUCOSE (test code = 169 mg/dL 70-110 H 1362728808) CREATININE (test code = 1.41 mg/dL 0.6-1.25 H 2596598328) CALCIUM (test code = 10.4 mg/dL 8.6-10.6 3504114693) eGFR Calculation mL/min/1.73m2 (Non-) (test code = 8480973307) eGFR Calculation mL/min/1.73m2 () (test code = 9124413377) JAZZMINE (test code = JAZZMINE) Association of Glomerular Filtration Rate (GFR) and Staging of Kidney Disease* + --+ --+ ------+| GFR (mL/min/1.73 m2) ?| With Kidney Damage ?| ?Without Kidney Damage+ --------+ --------+ +| ?>90 ?| ?Stage one ?| ? Normal ?+ ---+ ---+ -------+| ?60-89 ?| ?Stage two ?| ? Decreased GFR ? + --+ --+ ------+| ?30-59 ?| ?Stage three ?| ? Stage three ? + --+ --+ ------+| ?15-29 ?| ?Stage four ? | ? Stage four ?+ ---+ ---+ -------+| ?<15 (or dialysis) ? ?| ?Stage five ? | ? Stage five ?+ ---+ ---+ -------+ *Each stage assumes the associated GFR level has been in effect for at least three months. ?Stages 1 to 5, with or without kidney disease, indicate chronic kidney disease. Notes: Determination of stages one and two (with eGFR >59mL/min/1.73 m2) requires estimation of kidney damage for at least three months as defined by structural or functional abnormalities of the kidney, manifested by either:Pathological abnormalities or Markers of kidney damage (including abnormalities in the composition of the blood or urine or abnormalities in imaging tests). Lab Interpretation Abnormal (test code = 08833-6) [facility] (ALB, T.PRO, BILI T, BU/BC, ALT, AST, ALK PHOS)2020-01-22 21:23:00 Test Item Value Reference Range Interpretation Comments TOTAL BILI (test code = 6684542056) 1.0 mg/dL 0.1-1.1 BILI UNCON (test code = 8228799676) 0.9 mg/dL 0.1-1.1 BILI CONJ (test code = 0283125462) 0.0 mg/dL 0-0.3 T PROTEIN (test code = 7026159894) 8.5 g/dL 6.3-8.2 H ALBUMIN (test code = 0287080796) 5.4 g/dL 3.5-5 H ALK PHOS (test code = 0827678038) 57 U/L 34-122 ALTv (test code = 1742-6) 28 U/L 5-50 AST(SGOT) (test code = 2158083898) 33 U/L 13-40 Lab Interpretation (test code = Abnormal 10022-5) [facility] HospitalCREATINE [id number] 21:23:00 Test Item Value Reference Range Interpretation Comments CK (test code = 4787395462) 410 U/L 33-194 H Lab Interpretation (test code = Abnormal 31161-8) [facility] HospitalCBC WITH [id number] 21:19:00 Test Item Value Reference Range Interpretation Comments WBC (test code = See_Comment [Automated 6690-2) message] The sy stem which generated this result transmitted reference range : 4.20 - 10.70 10*3/?L. The reference range was not used to interpret this result as normal/abnormal . RBC (test code = See_Comment [Automated 789-8) message] The sy stem which generated this result transmitted reference range : 4.26 - 5.52 10*6/?L. The reference range was not used to interpret this result as normal/abnormal . HGB (test code = 15.2 g/dL 12.2-16.4 718-7) HCT (test code = 44.6 % 38.4-49.3 4544-3) MCV (test code = 96.7 fL 81.7-95.6 H 787-2) MCH (test code = 33.0 pg 26.1-32.7 H 785-6) MCHC (test code = 34.1 g/dL 31.2-35 786-4) RDW-SD (test code = 44.7 fL 38.5-51.6 54858-5) RDW-CV (test code = 12.6 % 12.1-15.4 788-0) PLT (test code = See_Comment [Automated 777-3) message] The sy stem which generated this result transmitted reference range : 150 - 328 10*3/ ?L. The reference r leonarda was not used to interpret this result as normal/abnormal . MPV (test code = 9.8 fL 9.8-13 86747-3) NRBC/100 WBC (test See_Comment [Automat ed code = 6800512484) message] The system which generated this result transmitted reference range : 0.0 - 10.0 /100 WBCs. The refer ence range was not u sed to interpret th is result as normal/abnormal . NRBC x10^3 (test code <0.01 See_Comment [Auto mated = 1316722349) message] The s ystem which generated this result transmitted reference range : 10*3/?L. The reference range was not used to interpret this result as normal/abnormal . GRAN MAT (NEUT) % 78.7 % (test code = 770-8) IMM GRAN % (test code 0.40 % = 0540470551) LYMPH % (test code = 12.1 % 736-9) MONO % (test code = 8.1 % 5905-5) EOS % (test code = 0.2 % 713-8) BASO % (test code = 0.5 % 706-2) GRAN MAT x10^3(ANC) 6.33 10*3/uL 1.99-6.95 (test code = 0086007735) IMM GRAN x10^3 (test 0.03 10*3/uL 0-0.06 code = 3098083630) LYMPH x10^3 (test code 0.97 10*3/uL 1.09-3.23 L = 731-0) MONO x10^3 (test code 0.65 10*3/uL 0.36-1.02 = 742-7) EOS x10^3 (test code = <0.03 0.06-0.53 L 711-2) BASO x10^3 (test code 0.04 10*3/uL 0.01-0.09 = 704-7) Lab Interpretation Abnormal (test code = 44823-9) [facility]OVID[facility] (ID NOW RAPID TESTING)2020-01-10 02:17:00 Test Item Value Reference Range Interpretation Comments SARS-CoV-2 Rapid ID NOW Not Detected Not Detected (test code = 91169-9) JAZZMINE (test code = JAZZMINE) ID NOW COVID-19 Assay is an isothermal nucleic acid amplification test intended for the qualitative detection of nucleic acid from SARS-CoV-2 viral RNA in nasopharyngeal (GLASS TINTER) specimens. It is used under Emergency Use Authorization (EUA) by FDA. The limit of detection (LOD) of the assay is 125 Genome Equivalents/mL. A positive result is indicative of the presence of SARS-CoV-2 RNA. ?Clinical correlation with patient history and other diagnostic information is necessary to determine patient infection status. A negative (Not Detected) result does not preclude SARS-CoV-2 infection. In patients with clinical symptoms and other tests that are consistent with SARS-CoV-2 infection, negative results should be treated as presumptive negative and a new specimen should be tested with alternative PCR molecular test. Invalid: Please collect a new specimen for repeat patient testing if clinically indicated. Lab Interpretation Normal (test code = 15213-0) [facility] HospitalTROPONIN [id number] 02:14:00 Test Item Value Reference Range Interpretation Comments TROPONIN I (test <0.012 See_Comment [Automated code = 8139186752) message] The system which generated this result transmitted reference range : <=0.034 ng/mL. The reference range was not used to interpr et this result as normal/abnormal . JAZZMINE (test code = Equal or Less than JAZZMINE) 0.034 ng/ml---Normal ?Note: Cardiac troponin begins to rise 3-4 hours after the onset of ischemia. Repeat in 4-6 hours if the sample was drawn within 3-4 hours of the onset of the symptom and found normal. Between 0.035 and 0.120 ng/mL--- Borderline. Questionable myocardial injury or necrosis ? ?Note: Serial measurement may be necessary to confirm or exclude the diagnosis of myocardial injury or necrosis; Clinical correlation (symptoms, EKGs, imaging studies, and others) required; Repeat in 4-6 hours if clinically indicated. ? Equal or Higher than 0.121 ng/mL---Abnormal. Myocardial Injury or Necrosis Likely ? Biotin has been reported to cause a negative bias, interpret results relative to patient's use of biotin. ? Lab Interpretation Normal (test code = 89149-4) [facility] WO [id number] 02:13:58No acute findings. HISTORY:Altered mental status (AMS), unclear cause TECHNIQUE: Noncontrast head CTwas performed. COMPARISON:07/15/2018 FINDINGS: The ventricles and sulci are appropriate for patient'freda. There is no midline shift. The basal cisterns are preserved. No largevascular territory infarction, intracranial hemorrhage or mass effect isseen. The extracranial tissues demonstrate no acute findings. [facility], Radiant Results Inft User - 01/09/2020 9:14 PM CDTHISTORY:Altered mental status (AMS), unclear cause TECHNIQUE: Noncontrast head CT was performed.COMPARISON:07/15/2018FINDINGS:The ventriclesand sulci are appropriate for patient's age.There is no midline shift. The basal cisterns are preserved. No largevascular territory infarction, intracranial hemorrhage or mass effect isseen.The extracranial tissues demonstrate no acute findings.IMPRESSIONNo acute findings.[facility] / [facility] - DRUG SCREEN [id number] 02:10:00 Test Item Value Reference Range Interpretation Comments BENZO U (test code = Negative Negative 3717436441) GUIDO U (test code = Negative Negative 0044233982) AMPHET (test code = Presumptive Negative A 6031640314) Positive THC (test code = Presumptive Negative A Confirmatio n of 7303693962) Positive Presumptive Positive THC result requires physician order . METHADONE (test code Negative Negative = 7474719461) Meth U (test code = Presumptive Negative A 9124115942) Positive OPIATES (test code = Negative Negative 3768373088) Cocaine Metabolite Negative Negative (test code = 5424199574) PROPOXY (test code = Negative Negative 6954045769) Tric U (test code = Negative Negative 4267743877) PCP (test code = Negative Negative 5677115894) OXYCOD (test code = Negative Negative 0701754440) JAZZMINE (test code = Urine Drug Cutoff JAZZMINE) Ranges Benzodiazepines: ? ? 150 ng/mLBarbiturates : ?200 ng/mLAmphetamine: ? 500 ng/mLCannabinoids : ?50 ?ng/mLMethadone: ? 200 ng/mLMethamphetam ine: ? ? 500 ng/mL Opiates: ? 100 ng/mL or 2000 ng/mLCocaine: ? 150 ng/mLPropoxyphene : ?300 ng/mLTricyclics: ?300 ng/mLOxycodone: ? 100 ng/mLPCP: ? 25 ?ng/mL The results are to be used only for medical (i.e., treatment) purposes. Unconfirmed screening results must not be used for non-medical purposes (e.g., employment testing, legal testing). Lab Interpretation Abnormal (test code = 82823-1) [facility]. METABOLIC PANEL (69602)2020-01-10 02:02:00 Test Item Value Reference Range Interpretation Comments NA (test code = 139 mmol/L 135-145 9603208094) K (test code = 4.2 mmol/L 3.5-5 0511642248) CL (test code = 104 mmol/L 98-108 4127097238) CO2 TOTAL (test code = 27 mmol/L 23-31 7214650806) AGAP (test code = 2-16 7479832731) BUN (test code = 20 mg/dL 7-23 4489814533) GLUCOSE (test code = 119 mg/dL 70-110 H 5102674497) CREATININE (test code = 0.81 mg/dL 0.6-1.25 6065028084) TOTAL BILI (test code = 0.3 mg/dL 0.1-1.8 9591682444) CALCIUM (test code = 9.4 mg/dL 8.6-10.6 2052771373) T PROTEIN (test code = 7.5 g/dL 6.3-8.2 2456529412) ALBUMIN (test code = 4.6 g/dL 3.5-5 6484455666) ALK PHOS (test code = 66 U/L 34-122 9856355246) ALTv (test code = 22 U/L 5-50 1742-6) AST(SGOT) (test code = 23 U/L 13-40 9924184840) eGFR Calculation mL/min/1.73m2 (Non-) (test code = 5598751138) eGFR Calculation mL/min/1.73m2 () (test code = 5673237752) JAZZMINE (test code = JAZZMINE) Association of Glomerular Filtration Rate (GFR) and Staging of Kidney Disease* + --+ --+ ------+| GFR (mL/min/1.73 m2) ?| With Kidney Damage ?| ?Without Kidney Damage+ --------+ --------+ +| ?>90 ?| ?Stage one ?| ? Normal ?+ ---+ ---+ -------+| ?60-89 ?| ?Stage two ?| ? Decreased GFR ? + --+ --+ ------+| ?30-59 ?| ?Stage three ?| ? Stage three ? + --+ --+ ------+| ?15-29 ?| ?Stage four ? | ? Stage four ?+ ---+ ---+ -------+| ?<15 (or dialysis) ? ?| ?Stage five ? | ? Stage five ?+ ---+ ---+ -------+ *Each stage assumes the associated GFR level has been in effect for at least three months. ?Stages 1 to 5, with or without kidney disease, indicate chronic kidney disease. Notes: Determination of stages one and two (with eGFR >59mL/min/1.73 m2) requires estimation of kidney damage for at least three months as defined by structural or functional abnormalities of the kidney, manifested by either:Pathological abnormalities or Markers of kidney damage (including abnormalities in the composition of the blood or urine or abnormalities in imaging tests). Lab Interpretation Abnormal (test code = 06723-8) [facility]2020-05-[facility] 02:02:00 Test Item Value Reference Range Interpretation Comments LIPASE (test code = 9591372592) 64 U/L 0-220 Lab Interpretation (test code = Normal 78596-1) [facility] HospitalMAGNESIUM2020-05-29 02:02:00 Test Item Value Reference Range Interpretation Comments MAGNESIUM (test code = 7125478533) 2.0 mg/dL 1.7-2.4 Lab Interpretation (test code = Normal 37306-3) [facility] HospitalCB WITH [id number] 01:51:00 Test Item Value Reference Range Interpretation Comments WBC (test code = See_Comment [Automated 8640-2) message] The sy stem which generated this result transmitted reference range : 4.20 - 10.70 10*3/?L. The reference range was not used to interpret this result as normal/abnormal . RBC (test code = See_Comment [Automated 780-8) message] The sy stem which generated this result transmitted reference range : 4.26 - 5.52 10*6/?L. The reference range was not used to interpret this result as normal/abnormal . HGB (test code = 14.8 g/dL 12.2-16.4 718-7) HCT (test code = 42.8 % 38.4-49.3 4544-3) MCV (test code = 96.2 fL 81.7-95.6 H 787-2) MCH (test code = 33.3 pg 26.1-32.7 H 785-6) MCHC (test code = 34.6 g/dL 31.2-35 786-4) RDW-SD (test code = 43.4 fL 38.5-51.6 60823-7) RDW-CV (test code = 12.4 % 12.1-15.4 788-0) PLT (test code = See_Comment [Automated 777-3) message] The sy stem which generated this result transmitted reference range : 150 - 328 10*3/ ?L. The reference r leonarda was not used to interpret this result as normal/abnormal . MPV (test code = 9.9 fL 9.8-13 50326-6) NRBC/100 WBC (test See_Comment [Automat ed code = [id number]) message] The system which generated this result transmitted reference range : 0.0 - 10.0 /100 WBCs. The refer ence range was not u sed to interpret th is result as normal/abnormal . NRBC x10^3 (test code <0.01 See_Comment [Auto mated = [id number]) message] The s ystem which generated this result transmitted reference range : 10*3/?L. The reference range was not used to interpret this result as normal/abnormal . GRAN MAT (NEUT) % 74.9 % (test code = 770-8) IMM GRAN % (test code 0.70 % = 8653542648) LYMPH % (test code = 15.6 % 736-9) MONO % (test code = 7.8 % 5905-5) EOS % (test code = 0.4 % 713-8) BASO % (test code = 0.6 % 706-2) GRAN MAT x10^3(ANC) 5.28 10*3/uL 1.99-6.95 (test code = 7329387722) IMM GRAN x10^3 (test 0.05 10*3/uL 0-0.06 code = 2341350483) LYMPH x10^3 (test code 1.10 10*3/uL 1.09-3.23 = 731-0) MONO x10^3 (test code 0.55 10*3/uL 0.36-1.02 = 742-7) EOS x10^3 (test code = 0.03 10*3/uL 0.06-0.53 L 711-2) BASO x10^3 (test code 0.04 10*3/uL 0.01-0.09 = 704-7) Lab Interpretation Abnormal (test code = 14341-0) [facility]"
[2023-02-10 20:44] LABS: Absolute Lymphocytes (CBC) 1.4 K/uL (0.7-4.9); Hematocrit 43.9 % (39.6-49.0); Lymphocytes % 21.7 % (15.3-44.8); MCV 97.3 fL (80-100); MPV 8.3 fL (7.6-11.3); RBC Red Blood Cell Count 4.51 M/uL (4.33-5.43)
--- NOTE | 2023-02-10 21:26 | RAD REPORT ---
EXAM DESCRIPTION: Deepti Single View02/10/2023 9:15 pm CLINICAL HISTORY: Chest pain COMPARISON: none FINDINGS: The lungs appear clear of acute infiltrate. The heart is normal size IMPRESSION: No acute abnormalities displayed
[2023-02-10 21:38] LABS: Troponin High Sensitivity 23.6 pg/mL (<58.9)
[2023-02-10 21:41] LABS: Magnesium 2.2 mg/dL (1.6-2.4); Potassium 3.8 mEq/L (3.5-5.1)
[2023-02-10] MEDS ORDERED: ACETAMINOPHEN 500 MG TAB ONE (22:09)
--- NOTE | 2023-02-10 22:58 | ER ---
Nurse's Notes [facility] Name: Byron Rai Age: 47 yrs Sex: Male : 1975 Arrival Date: 02/10/2023 Time: 19:52 Bed 13 Private MD: Diagnosis: Chest pain, unspecified Presentation: 02/10 20:06 Chief complaint: Patient states: CHEST PAIN X 3 DAYS, COUGH AND CONGESTION X 2 DAYS. rv Coronavirus screen: Vaccine status: Patient reports receiving the 2nd dose of the covid vaccine. Ebola Screen: Patient negative for fever greater than or equal to 101.5 degrees Fahrenheit, and additional compatible Ebola Virus Disease symptoms Patient denies exposure to infectious person. Patient denies travel to an Ebola-affected area in the 21 days before illness onset. Initial Sepsis Screen: Does the patient meet any 2 criteria? No. Patient's initial sepsis screen is negative. Does the patient have a suspected source of infection? No. Patient's initial sepsis screen is negative. Risk Assessment: Do you want to hurt yourself or someone else? Patient reports no desire to harm self or others. 20:06 Method Of Arrival: Ambulatory rv 20:06 Acuity: XOCHILT 3 rv Triage Assessment: 20:07 General: Appears uncomfortable, Behavior is calm, cooperative. Pain: Complains of pain rv in chest. Neuro: Level of Consciousness is awake, alert, obeys commands, Oriented to person, place, time, situation. Cardiovascular: Capillary refill < 3 seconds. Respiratory: Reports cough that is Respiratory effort is even, unlabored. Derm: Skin is intact. Historical: - Allergies: 20:07 No Known Allergies; rv - PMHx: 20:07 Hypercholesterolemia; Hypertensive disorder; Hypothyroidism; rv - PSHx: 20:07 None; rv - Immunization history:: Adult Immunizations up to date. - Social history:: Smoking status: Patient denies any tobacco usage or history of. Screenin:24 [facility] ED Fall Risk Assessment (Adult) History of falling in the last 3 months, mb9 including since admission No falls in past 3 months (0 pts) Confusion or Disorientation No (0 pts) Intoxicated or Sedated No (0 pts) Impaired Gait No (0 pts) Mobility Assist Device Used No (0 pt) Altered Elimination No (0 pt) Score/Fall Risk Level 0 - 2 = Low Risk Oriented to surroundings, Maintained a safe environment, Educated pt \T\ family on fall prevention, incl call for assistance when getting out of bed. Abuse screen: Denies threats or abuse. Nutritional screening: No deficits noted. Tuberculosis screening: No symptoms or risk factors identified. Assessment: 20:25 General: Appears in no apparent distress. Behavior is calm, cooperative, appropriate mb9 for age. Pain: Complains of pain in chest Pain does not radiate. Pain currently is 6 out of 10 on a pain scale. Quality of pain is described as aching, throbbing, Pain began 2-3 days ago. Is continuous. Neuro: Davey Agitation-Sedation Scale (RASS): 0 - Alert and Calm Level of Consciousness is awake, alert, obeys commands, Oriented to person, place, time, situation, Appropriate for age. Cardiovascular: Heart tones S1 S2 present Patient's skin is warm and dry. Rhythm is regular. Respiratory: Airway is patent Respiratory effort is even, unlabored, Respiratory pattern is regular, symmetrical. Respiratory: Reports shortness of breath. GI: Abdomen is round non-distended, Bowel sounds present X 4 quads. Abd is soft and non tender X 4 quads. Reports nausea. Derm: Skin is pink, warm \T\ dry. Musculoskeletal: Range of motion: intact in all extremities. 21:30 Reassessment: No changes from previously documented assessment. Patient and/or family mb9 updated on plan of care and expected duration. Pain level reassessed. Patient is alert, oriented x 3, equal unlabored respirations, skin warm/dry/pink. 22:54 Reassessment: No changes from previously documented assessment. Patient and/or family mb9 updated on plan of care and expected duration. Pain level reassessed. Patient is alert/active/playful, equal unlabored respirations, skin warm/dry/pink. 23:03 Reassessment: Patient and/or family updated on plan of care and expected duration. Pain mb9 level reassessed. Patient is alert, oriented x 3, equal unlabored respirations, skin warm/dry/pink. Patient states feeling better. Patient states symptoms have improved. Vital Signs: 20:06 BP 150 / 107; Pulse 72; Resp 17; Temp 98; Pulse Ox 100% ; Weight 101.15 kg; Height 5 rv ft. 8 in. ; 21:03 BP 147 / 91; Pulse 72; Resp 18; Pulse Ox 98% on R/A; mb9 22:54 BP 162 / 104; Pulse 68; Resp 17; Pulse Ox 99% on R/A; mb9 20:06 Body Mass Index 33.91 (101.15 kg, 172.72 cm) ED Course: 19:55 Patient arrived in ED. [email or web address] 20:00 Rowena Noguera FNP-C is [facility]. kb 20:00 Darrius Tolbert MD is Attending Physician. kb 20:07 Triage completed. rv 20:18 Roxy Silva, RN is Primary Nurse. mb9 20:24 Arm band placed on. mb9 20:24 Placed in gown. Bed in low position. Call light in reach. Side rails up X 1. Client mb9 placed on continuous cardiac and pulse oximetry monitoring. NIBP monitoring applied. awake overnight monitor on. 20:25 No provider procedures requiring assistance completed. EKG done, by ED staff, reviewed mb9 by Rowena JEFFREY. Inserted saline lock: 18 gauge in right antecubital area, using aseptic technique. 20:26 Basic Metabolic Panel Sent. mb9 20:26 CBC with Diff Sent. mb9 20:26 D-Dimer Sent. mb9 20:26 Magnesium Sent. mb9 20:26 NT PRO-BNP Sent. mb9 20:26 Troponin HS Sent. mb9 21:16 XRAY Chest (1 view) In Process Unspecified. EDMS 23:03 IV discontinued, intact, bleeding controlled, No redness/swelling at site. Pressure mb9 dressing applied. Administered Medications: 22:08 Drug: Acetaminophen PO 1000 mg Route: PO; mb9 22:54 Follow up: Response: No adverse reaction mb9 Medication: 20:24 VIS not applicable for this client. mb9 Outcome: 22:58 Discharge ordered by . sandra 23:03 Discharged to home ambulatory. mb9 23:03 Condition: stable 23:03 Discharge instructions given to patient, Instructed on discharge instructions, follow up and referral plans. Demonstrated understanding of instructions, follow-up care. 23:03 Patient left the ED. mb9 Signatures: Dispatcher [employer] EDMA Rowena Noguera FNP-C FNP-Ckb Vicente, Ronaldo, RN RN rv Judy Medina [email or web address] Roxy Silvah, RN RN mb9
--- NOTE | 2023-02-10 22:58 | EDPHYS ---
Physician Documentation [facility] Name: Byron Rai Age: 47 yrs Sex: Male : 1975 Arrival Date: 02/10/2023 Time: 19:52 Bed 13 Private MD: ED Physician Darrius Tolbert HPI: 02/10 23:47 This 47 yrs old Male presents to ER via Ambulatory with complaints of Chest kb Pain, Shortness Of Breath. 23:47 The patient or guardian reports chest pain that is located primarily in the anterior kb chest wall. Onset: 3 day(s) ago. The pain does not radiate. Associated signs and symptoms: Pertinent positives: cough, shortness of breath. The chest pain is described as aching. Duration: The patient or guardian reports a single episode. Modifying factors: The symptoms are alleviated by nothing. the symptoms are aggravated by nothing. Severity of pain: At its worst the pain was mild moderate in the emergency department the pain is unchanged. The patient has experienced a previous episode, last week. The patient has not recently seen a physician. Pt reports chest pain for 3 days, cough, congestion and shortness of breath since yesterday. . Historical: - Allergies: 20:07 No Known Allergies; rv - PMHx: 20:07 Hypercholesterolemia; Hypertensive disorder; Hypothyroidism; rv - PSHx: 20:07 None; rv - Immunization history:: Adult Immunizations up to date. - Social history:: Smoking status: Patient denies any tobacco usage or history of. ROS: 23:45 Constitutional: Negative for fever, chills, and weight loss. kb 23:45 ENT: Positive for sinus congestion. 23:45 Cardiovascular: Positive for chest pain. 23:45 Respiratory: Positive for cough, shortness of breath. 23:45 Neuro: Positive for headache. 23:45 All other systems are negative. Exam: 23:45 Constitutional: This is a well developed, well nourished patient who is awake, alert, kb and in no acute distress. Head/Face: Normocephalic, atraumatic. ENT: Moist Mucous membranes Cardiovascular: Regular rate and rhythm with a normal S1 and S2. No gallops, murmurs, or rubs. No pulse deficits. Respiratory: Respirations even and unlabored. No increased work of breathing. Talking in full sentences Abdomen/GI: Soft, non-tender. No distention Skin: Warm, dry with normal turgor. Normal color. MS/ Extremity: Pulses equal, no cyanosis. Neurovascular intact. Full, normal range of motion. Neuro: Awake and alert, GCS 15, oriented to person, place, time, and situation. Moves all extremities. Normal gait. Vital Signs: 20:06 BP 150 / 107; Pulse 72; Resp 17; Temp 98; Pulse Ox 100% ; Weight 101.15 kg; Height 5 rv ft. 8 in. ; 21:03 BP 147 / 91; Pulse 72; Resp 18; Pulse Ox 98% on R/A; mb9 22:54 BP 162 / 104; Pulse 68; Resp 17; Pulse Ox 99% on R/A; mb9 20:06 Body Mass Index 33.91 (101.15 kg, 172.72 cm) rv MDM: 20:04 Patient medically screened. kb 23:45 Data reviewed: vital signs, nurses notes. kb 23:45 Differential diagnosis: abnormal EKG, acute myocardial infarction, chest wall pain, kb pneumonia. Counseling: I had a detailed discussion with the patient and/or guardian regarding: the historical points, exam findings, and any diagnostic results supporting the discharge/admit diagnosis, lab results, radiology results, the need for outpatient follow up, a family practitioner, to return to the emergency department if symptoms worsen or persist or if there are any questions or concerns that arise at home. ED course: Pt does not want to wait to do the repeat troponin and does not want to wait for the d-dimer to be resulted. States he is ready to go home. Pt given risks and verbal understanding received. Pt educated on return precautions and need for follow up with PCP. . 02/10 20:04 Order name: Basic Metabolic Panel; Complete Time: 21:45 kb 02/10 20:04 Order name: CBC with Diff; Complete Time: 21:05 kb 02/10 20:04 Order name: D-Dimer 02/10 20:04 Order name: Magnesium; Complete Time: 21:45 kb 02/10 20:04 Order name: NT PRO-BNP; Complete Time: 21:45 kb 02/10 20:04 Order name: Troponin HS; Complete Time: 21:45 kb 02/10 22:53 Order name: Flu kb 02/10 20:04 Order name: XRAY Chest (1 view); Complete Time: 21:30 kb 02/10 20:04 Order name: EKG; Complete Time: 20:05 kb 02/10 20:04 Order name: Cardiac monitoring; Complete Time: 20: kb 02/10 20:04 Order name: EKG - Nurse/Tech; Complete Time: 20:26 kb 02/10 20:04 Order name: IV Saline Lock; Complete Time: 20: kb 02/10 20:04 Order name: Labs collected and sent; Complete Time: 20: kb 02/10 20:04 Order name: O2 Per Protocol; Complete Time: 20: kb 02/10 20:04 Order name: O2 Sat Monitoring; Complete Time: 20:26 kb Administered Medications: 22:08 Drug: Acetaminophen PO 1000 mg Route: PO; mb9 22:54 Follow up: Response: No adverse reaction mb9 Disposition Summary: 02/10/23 22:58 Discharge Ordered Location: Home kb Condition: Stable kb Diagnosis - Chest pain, unspecified kb Followup: kb - With: Emergency Department - When: As needed - Reason: Worsening of condition Followup: kb - With: Private Physician - When: 2 - 3 days - Reason: Recheck today's complaints, Continuance of care, Re-evaluation by your physician Discharge Instructions: - Discharge Summary Sheet kb - Nonspecific Chest Pain, Adult, [id number] kb Forms: - Medication Reconciliation Form kb - Thank You Letter kb - Antibiotic Education kb - Prescription Opioid Use kb - [email or web address] kb - Work release form rv Signatures: Dispatcher [employer] Rowena Hatfield, RACHELE BEE-Quentin Pedraza, RN RN Roxy Wilkinson RN RN mb9
[2023-02-10 23:45] VITALS: TEMP 98
[2023-02-10 23:47] VITALS: BP 162/104; O2SAT 99
--- NOTE | 2023-02-12 11:18 | EKG ---
Test Date: 2023-02-10 Test Time: 20:01:14 Nurse Ob: RV MEASUREMENT RESULTS: Intervals: Rate: 65 UT: 190 QRSD: 96 QT: 384 QTc: 399 [place]: P: 27 UT: 190 QRS: -54 T: 37 INTERPRETIVE STATEMENTS: Normal sinus rhythm Left anterior fascicular block Abnormal ECG Compared to ECG 12/29/2005 20:40:21 Left anterior fascicular block now present Electronically Signed On 02-12-23 11:17:15 CDT by Francesco Espinal
== END 2023-02-10 23:03 | disposition home or self-care (01) ==
LOC: ER 19:52
DX: R07.89 Other chest pain (principal); I10 Essential (primary) hypertension; R05.9 Cough, unspecified
CPT/HCPCS: 36415; 71045; 80048; 83735; 83880; 84484; 85025; 85379; 93005; 99284

== ENCOUNTER 2024-08-12 00:10 | Emergency (ER) | payer OTHER ==
--- OUTSIDE RECORDS SUMMARY | 2024-08-12 00:16 | XMS REPORT | Continuity of Care Document ---
Author Name Unknown Address [address] [facility] [address] [place] [address] [facility] thconnect Address [address] [facility]. 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 Name Role Phone Kenneth Rai Primary Care Physician [phone] JOSSIE IGLESIAS Attending Clinician Unavailab lety RaiLuis FelipeKenneth A Attending Clinician [phone] Gage DUBON, Bell Ortega Attending Clinician + [phone] Artem Alonso MD Attending Clinician [phone] Doctor Unassigned, [place] Attending Clinician U navailable BELL ALMONTE Attending Clinician Luis Rose MD Attending Clinician [phone] Bell Almonte MD Attending Clinician + [phone] Maury Hamilton MD Attending Clinician [phone] LIDIA FERNANDEZ Attending Clinician Unavailable LIDIA FERNANDEZ Attending Clinician Unavailable MUKUND LUIS Attending Clinician Unavailable LAB47 Attending Clinician Unavailable LAB90 Attending Clinician Unavailable MD CLINT Attending Clinician Unavailab David Hercules MD Attending Clinician [phone] RITIKA NANCE Attending Clinician Unavaila Ritika Guerrero Attending Clinician [phone] ARIES SALAZAR Attending Clinician Unavail Aries Wasserman MD Attending Clinician [phone] SHANNON TATE Attending Clinician Unavailable Shannon Tate MD Attending Clinician [phone] JIMMY HERNANDEZ Attending Clinician Unavailable JIMMY HERNANDEZ Attending Clinician Unavailable Doctor Unassigned, [place] Attending Clinician U LUIS Broussard Attending Clinician Unavailable BELL ALMONTE Admitting Clinician Bell Cardozo MD Admitting Clinician + [phone] RITIKA NANCE Admitting Clinician Unavaila ARIES Concepcion Admitting Clinician Unavail SHANNON Poe Admitting Clinician Unavailable Payers Payer Name Policy Type Policy Number Effective Date Expirati on Date Source [employer] [facility] S[facility] S HMO ON/OFF 9 [id number] 2023 00:00:00 [employer] 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 [id number] 2022 00:00:00 Problems Condition Name Condition Details Condition Category Status Onset Date Resolution Date Last Treatment Date Treating Clinician Comments Source Coronary artery disease involving chilkat coronary artery of chilkat heart without angina pectoris Coronary artery disease involving chilkat coronary artery of chilkat heart without angina pectoris Disease Active 03-29 00:00: 00 [facility] S/P right coronary artery (RCA) stent placement S/P right coronary artery (RCA) stent placement Disease Active 03-29 00:00: 00 [facility] Chest pain, unspecifie d type Chest pain, unspecifie d type Disease Active 03-11 00:00: 00 [facility] NSTEMI (non-ST elevated myocardial infarction ) NSTEMI (non-ST elevated myocardial infarction ) Disease Active 03-11 00:00: 00 [facility] Well adult exam Well adult exam Disease Active 2022-08 00:00: 00 Josie Seybold - Externa l Hypothyroi dism Hypothyroi dism Disease Active 2022-08 00:00: 00 Josie Seybold - Externa l Obesity (BMI 30-39.9) Obesity (BMI 30-39.9) Disease Active 2022-08 00:00: 00 Josie Seybold - Externa l Shortness of breath Shortness of breath Disease Active 02-23 00:00: 00 [facility] Mixed hyperlipid emia Mixed hyperlipid emia Disease Active 02-23 00:00: 00 [facility] Essential hypertensi on Essential hypertensi on Disease Active 2017-08 00:00: 00 [facility] Drug abuse Drug abuse Disease Active 2017-08 00:00: 00 [facility] Family history of early CAD Family history of early CAD Disease Active 2017-08 00:00: 00 [facility] Obesity (BMI 30-39.9) Obesity (BMI 30-39.9) Disease Active 2017-08 00:00: 00 [facility] Chest pain Chest pain Disease Active 2017-08 00:00: 00 [facility] Allergies, Adverse Reactions, Alerts Allergy Name Allergy Type Status Severity Reaction(s) Onset Date Inactive Date Treating Clinician Comments Source CODEINE DRUG INGREDI Active Unknown-Cmnt 01-21 00:00: 00 [facility] Codeine Propensi ty to adverse reaction s Active Other 01-21 00:00: 00 constipat ion Josie Seybold - Externa l HYDROCOD ONE DRUG INGREDI Active Other-Cmnt 2017-08 00:00: 00 [facility] Hydrocod one Propensi ty to adverse reaction s Active Other 2017-08 00:00: 00 Constipat ion Josie Seybold - Externa l Social History Social Habit Start Date Stop Date Quantity Comments Source Gender identity [facility] History of tobacco use Snuff User [facility] Sexual orientation K mirta Han - External Alcoholic beverage intake 2024-03-29 00:00:00 2024-03-29 00:00:00 Current drinker of alcohol (finding) [facility] Tobacco use and exposure 2024-03-11 00:00:00 2024-03-11 00:00:00 User of smokeless tobacco [facility] Alcohol intake 2023-09-22 00:00:00 2023-09-22 00:00:00 Current drinker of alcohol (finding) Josie Han - External Alcohol Comment 2023-08-02 00:00:00 2023-08-02 00:00:00 socially Josie Han - External History of Social function 2023-06-14 00:00:00 2023-06-14 00:00:00 Josie Han - External Exposure to SARS-CoV-2 (event) 2022-12-10 00:00:00 2022-12-20 22:39:00 Not sure [facility] Sex Assigned At 1975 00:00:00 1975 00:00:00 Josie Han - External Smoking Status Start Date Stop Date Source Ex-smoker 2024-03-11 00:00:00 2024-03-11 [facility] 2023-06-14 00:00:00 Josie Han - External Medications Ordered Medication Name Filled Medication Name Start Date Stop Date Current Medication? Ordering Clinician Indication Dosage Frequency Signature (SIG) Comments Components Source losartan 50 mg tablet 03-29 00:00: 00 03-30 04:59 :00 No 50mg Take 1 tablet by mouth in the morning. [facility] tiZANidine 2 mg tablet 03-19 00:00: 00 Yes 2mg Take 1 tablet by mouth. [facility] SERTraline 50 mg tablet 03-19 00:00: 00 03-20 04:59 :00 No 50mg Take 1 tablet by mouth. [facility] nitroglycer in 0.4 mg sublingual tablet 03-15 00:00: [id number] 1 tablet under the tongue every 5 (five) minutes as needed for Chest pain. [facility] aspirin 81 mg chewable tablet 03-14 00:00: 00 Yes [id number] 81mg Take 1 tablet by mouth in the morning. [facility] losartan 25 mg tablet 03-14 00:00: 00 03-29 00:00 :00 No [id number] 25mg Take 1 tablet by mouth in the morning. [facility] ondansetron (ZOFRAN) tablet 4 mg 03-13 14:30: 00 03-13 13:48 :00 No 4mg 4 mg, Oral, ONCE, 1 dose, On Mon03/13/24 at 0930, Routine [facility] morpHINE injection 2 mg 03-13 02:32: 03 Yes 2mg 2 mg, Slow IV Push, Q4HPRN, Starting on Mon03/12/24 at 2132, Until Discontinu ed, Routine, Chest pain [facility] atorvastati n (LIPITOR) tablet 40 mg 03-13 02:00: 00 Yes 40mg 40 mg, Oral, QHS, First dose on Mon03/12/24 at 2100, Until Discontinu ed, Routine [facility] atorvastati n 40 mg tablet 03-13 00:00: 00 Yes [id number] 40mg Take 1 tablet by mouth at bedtime. [facility] levothyroxi ne 125 mcg tablet 03-13 00:00: 00 Yes [id number] 125ug Take 1 tablet by mouth every morning. [facility] nitroglycer in 0.3 mg sublingual tablet 03-13 00:00: [id number] 1 tablet under the tongue every 5 (five) minutes as needed for Chest pain. [facility] ticagrelor 90 mg tablet 03-13 00:00: 00 03-13 00:00 :00 No [id number] 90mg Take 1 tablet by mouth in the morning and 1 tablet in the evening. [facility] iopamidol (ISOVUE-370 ) injection 03-12 22:55: 16 03-12 23:01 :38 No ONCE INTRA PROCEDURE, Starting on Mon03/12/24 at 1755, Until Mon03/12/24 at 1801, Routine, CV Intraproce dure [facility] nitroglycer in (TRIDIL) 2 mg in 10 mL D5W for Cardiac Cath 03-12 22:06: 12 03-12 22:57 :33 No ONCE INTRA PROCEDURE, Starting on Mon03/12/24 at 1706, Until Mon03/12/24 at 1757, Routine, CV Intraproce dure [facility] heparin 1,000 unit/mL injection 03-12 22:05: 57 03-12 22:57 :33 No ONCE INTRA PROCEDURE, Starting on Mon03/12/24 at 1705, Until Mon03/12/24 at 1757, Routine, CV Intraproce dure [facility] lidocaine 1% (PF) (XYLOCAINE) injection 03-12 22:02: 17 03-12 22:57 :33 No ONCE INTRA PROCEDURE, Starting on Mon03/12/24 at 1702, Until Mon03/12/24 at 1757, Routine, CV Intraproce dure [facility] FENTanyl PF (SUBLIMAZE (PF)) injection 03-12 22:02: 02 03-12 22:57 :33 No ONCE INTRA PROCEDURE, Starting on Mon03/12/24 at 1702, Until Mon03/12/24 at 1757, Routine, CV Intraproce dure [facility] midazolam (VERSED) injection 03-12 22:01: 48 03-12 22:57 :33 No ONCE INTRA PROCEDURE, Starting on Mon03/12/24 at 1701, Until Mon03/12/24 at 1757, Routine, CV Intraproce dure [facility] nitroglycer in (TRANSDERM- NITRO) 0.2 mg/hr patch 1 Patch 03-12 14:00: 00 Yes 1{patch } 1 Patch, Transderma l (Apply To Skin), Administer over 12 Hours, DAILY, First dose on Mon03/12/24 at 0900, Until Discontinu ed, Routine [facility] losartan (COZAAR) tablet 25 mg 03-12 14:00: 00 Yes 25mg 25 mg, Oral, DAILY, First dose on Mon03/12/24 at 0900, Until Discontinu ed, Routine [facility] aspirin chewable tablet 81 mg 03-12 14:00: 00 Yes 81mg 81 mg, Oral, DAILY, First dose on Mon03/12/24 at 0900, Until Discontinu ed, Routine [facility] sennosides- docusate sodium (SENOKOT-S) 8.6-50 mg per tablet 1 tablet 03-12 14:00: 00 Yes 1{tbl} 1 tablet, Oral, DAILY, First dose on Mon03/12/24 at 0900, Until Discontinu ed, Routine [facility] perflutren protein-A microsphr (OPTISON) injection 3 mL 03-12 13:45: 00 03-12 13:30 :00 No [id number] 3mL 3 mL, IV Push, ONCE, 1 dose, On Mon03/12/24 at 0845, Routine [facility] ticagrelor (BRILINTA) tablet 90 mg 03-12 13:00: 00 Yes 90mg 90 mg, Oral, BID, First dose on Mon03/12/24 at 0800, Until Discontinu ed, Routine [facility] levothyroxi ne (SYNTHROID) tablet 125 mcg 03-12 11:00: 00 Yes 125ug 125 mcg, Oral, QAM-0600, First dose on Mon03/12/24 at 0600, Until Discontinu ed, [facility] ([facility] mg/mL[facility] injection 2 mg 03-12 03:16: 22 03-13 02:32 :20 No 2mg 2 mg, Slow IV Push, Q4HPRN, Starting on Mon03/11/24 at 2216, Until Mon03/12/24 at 2132, Routine, Pain (scale 7-10), Chest pain [facility] acetaminoph en (TYLENOL) tablet 650 mg 03-12 01:23: 49 Yes 650mg 650 mg, Oral, Q6HPRN, Starting on Mon03/11/24 at 2023, Until Discontinu ed, Routine, Pain (scale 1-3) [facility] FENTanyl PF (SUBLIMAZE (PF)) injection 50 mcg 03-11 23:30: 00 03-11 22:28 :00 No 50ug 50 mcg, Slow IV Push, ONCE, 1 dose, On Mon03/11/24 at 1830, LUMA [facility] ondansetron (ZOFRAN (PF)) injection 4 mg 03-11 23:30: 00 03-11 22:53 :00 No 4mg 4 mg, Slow IV Push, ONCE, 1 dose, On Mon03/11/24 at 1830, LUMA [facility] HEPARIN SODIUM (PORCINE) 1,000 UNIT/ML BOLUS ACS ORDER SET 03-11 22:30: 00 03-11 22:29 :00 No 4000U 4,000 Units, IV Push, ONCE, 1 dose, On Mon03/11/24 at 1730, LUMA [facility] heparin 25,000 Units/250 mL (Premixed Bag) in 0.45 % NS 03-11 22:16: 13 03-13 10:39 :04 No 1000U/h 1,000 Units/hr (10 mL/hr), IV Infusion, TITRATE, Parameters in Admin. Instr., Starting on Mon03/11/24 at 1716, Initiate dosing: -Patient 83 kg or under: 1,000 Units/hr (Calculate d dose at 12 units/kg/h r) -Patient over 83 k,000 units/hr DO NOT Exceed the MAXIMUM 1,000 units/hr for initiation of heparin drip. CAUTION - If LMWH given in ER, AVOID bolus and start next dose/drip 12 hrs after ER dosage. Must program rate using programmab le infusion pump. Check with the ordering provider first prior to any administra tion should the patient be on existing/a dditional anticoagul ant therapy. Range, Dosing and Testing: FOR [place], [facility], AND [facility] ONLY - aPTT < 35: Bolus 5000 units, increase rate 300 units/hr - aPTT 35-44: Bolus 3000 units, increase rate 200 units/hr - aPTT 45-54: Increase rate 100 units/hr - aPTT 55-85: NO CHANGE - aPTT 86-95: Decrease rate 100 units/hr - aPTT 96-120: Hold 30 minutes, decrease rate 150 units/hr - aPTT > 120: Hold 60 minutes, decrease rate 200 units/hr Check aPTT 6 hours after initiation , then Q6H after every change, aPTT Q12H once therapeuti c levels are reached. FOR [facility] ONLY - aPTT < 40: Bolus 5000 units, increase rate 300 units/hr - aPTT 40-49: Bolus 3000 units, increase rate 200 units/hr - aPTT 50-59: Increase rate 100 units/hr - aPTT 60-85: NO CHANGE - aPTT 86-95: Decrease rate 100 units/hr - aPTT 96-120: Hold 30 minutes, decrease rate 150 units/hr - aPTT > 120: Hold 60 minutes, decrease rate 200 units/hr Check aPTT 6 hours after initiation , then Q6H after every change, aPTT Q12H once therapeuti c levels are reached. DO NOT ADJUST INITIAL BOLUS OR INITIAL INFUSION RATE. [facility] aspirin chewable tablet 243 mg 03-11 20:00: 00 03-11 20:40 :00 No 243mg 243 mg, Oral, ONCE, 1 dose, On Mon03/11/24 at 1500, [facility] ticagrelor (BRILINTA) tablet 180 mg 03-11 20:00: 00 03-11 20:40 :00 No 180mg 180 mg, Oral, ONCE, 1 dose, On Mon03/11/24 at 1500, [facility] LISINOPRIL ORAL 03-11 19:04: 23 03-13 00:00 :00 No 20mg Take by mouth. [facility] famotidine (PEPCID AC) tablet 20 mg 01-18 18:00: 00 01-18 18:03 :00 No 20mg 20 mg, Oral, ONCE, 1 dose, On Mon01/19/24 at 1300, [facility] diphenhydrA MINE (BENADRYL) tablet 25 mg 01-18 18:00: 00 01-18 18:03 :00 No 25mg 25 mg, Oral, ONCE, 1 dose, On Mon01/19/24 at 1300, [facility] dexamethaso ne sod phos PF injection 10 mg 01-18 18:00: 00 01-18 18:03 :00 No 10mg 10 mg, Oral, ONCE, 1 dose, On Mon01/19/24 at 1300, 1 mL [facility] methylPREDN ISolone 4 mg tablets 01-18 00:00: 00 03-13 00:00 :00 No [id number] Take by mouth SEE-INSTRU CTIONS. follow package directions [facility] Lisinopril 20 MG oral Tablet 09-22 10:01: 49 09-22 00:00 :00 No 20mg Take 1 tablet (20 mg total) by mouth daily. Josie moe Atorvastati n Calcium 20 MG oral Tablet 09-22 00:00: 00 Yes [id number] 20mg Take 1 tablet (20 mg total) by mouth daily. Josie moe Levothyroxi ne Sodium 125 MCG oral Tablet 09-22 00:00: 00 Yes [id number] 125ug Take 1 tablet (125 mcg total) by mouth daily. Josie moe Lisinopril 20 MG oral Tablet 09-22 00:00: 00 Yes [id number] 20mg Take 1 tablet (20 mg total) by mouth daily. Josie moe Gabapentin 100 MG oral Capsule 09-22 00:00: 00 Yes [id number] 100mg Take 1 capsule (100 mg total) by mouth 3 times daily. Josie moe Cyclobenzap rine HCl 5 MG oral Tablet 09-22 00:00: 00 Yes [id number] 10mg QD Take 2 tablets (10 mg total) by mouth nightly as needed for muscle spasms. Josie moe Mesa-3 Fatty Acids (Mesa-3 Fish Oil) 1000 MG oral Capsule 2022-08 00:00: 00 Yes [id number] 1{capsu le} Take 1 capsule by mouth 3 to 4 times daily. Josie moe Fenofibrate 145 MG oral Tablet 2022-08 00:00: 00 Yes [id number] 145mg Take 1 tablet (145 mg total) by mouth daily. Josie moe Atorvastati n Calcium 20 MG oral Tablet 2022-08 00:00: 00 09-22 00:00 :00 No [id number] 20mg Take 1 tablet (20 mg total) by mouth daily. Josie moe Lisinopril 20 MG oral Tablet 2022-08 15:21: 15 Yes 20mg Take 1 tablet (20 mg total) by mouth daily. Josie moe Pantoprazol e Sodium 40 MG oral Tablet Delayed Response 2022-08 00:00: 00 Yes [id number] 40mg Take 1 tablet (40 mg total) by mouth daily. Josie moe Levothyroxi ne Sodium 125 MCG oral Tablet 2022-08 16:54: 32 06-20 00:00 :00 No 125ug Take 1 tablet (125 mcg total) by mouth daily. Josie moe Lisinopril 20 MG oral Tablet 2022-08 16:28: 52 Yes 20mg Take 1 tablet (20 mg total) by mouth daily. Josie moe Levothyroxi ne Sodium 125 MCG oral Tablet 2022-08 00:00: 00 09-22 00:00 :00 No [id number] 125ug Take 1 tablet (125 mcg total) by mouth daily. Josie moe Azithromyci n 250 MG oral Tablet 2022-08 00:00: 00 06-26 05:59 :00 No [id number] Take 2 tablets by mouth on day 1 then 1 tablet by mouth daily for 4 days thereafter .. Josie moe LORazepam (ATIVAN) injection 1 mg 02-11 21:15: 00 02-11 21:19 :00 No 1mg 1 mg, Slow IV Push, ONCE, 1 dose, On Mon02/11/23 at 1615, STAT [facility] hydralAZINE (APRESOLINE ) injection 10 mg 02-11 21:00: 00 02-11 21:03 :00 No 10mg 10 mg, Slow IV Push, ONCE, 1 dose, On Mon02/11/23 at 1600, [facility] lactulose (CEPHULAC) solution 30 mL 12-21 05:00: 00 12-21 04:57 :00 No 30mL 30 mL, Oral, ONCE, 1 dose, On Mon12/21/22 at 0000, [facility] NaCl 0.9% (NS) bolus infusion 1,000 mL 12-21 04:00: 00 12-21 06:08 :00 No 1000mL at 999 mL/hr, 1,000 mL, IV Infusion, ONCE, 1 dose, On Mon12/20/22 at 2300, STAT [facility] furosemide (LASIX) injection 40 mg 12-21 04:00: 00 12-21 04:20 :00 No 40mg 40 mg, IV Push, ONCE, 1 dose, On Mon12/20/22 at 2300, LUMA [facility] ipratropium -albuteroL (DUONEB) 0.5 mg-3 mg(2.5 mg base)/3 mL nebulizer solution 3 mL 12-21 04:00: 00 12-21 04:15 :00 No 3mL 3 mL, Inhalation , ONCE, 1 dose, On Mon12/20/22 at 2300, LUMA [facility] methylpredn isolone sod succ (SOLU-MEDRO L) injection 125 mg 12-21 04:00: 00 12-21 04:20 :00 No 125mg 125 mg, IV Piggyback, ONCE, 1 dose, On Mon12/20/22 at 2300, STAT [facility] aspirin tablet 325 mg 12-21 03:45: 00 12-21 03:50 :00 No 325mg 325 mg, Oral, ONCE, 1 dose, On Mon12/20/22 at 2245, STAT [facility] nisoldipine (SULAR ORAL) 12-21 00:44: 33 Yes 20mg Take 20 mg by mouth daily. [facility] albuterol 90 mcg/actuati on inhaler 12-21 00:00: 00 Yes [id number] 2{puff} Inhale 2 Puffs every 4 (four) hours as needed for Wheezing or Shortness of Breath. [facility] polyethylen e glycol 3350 (MIRALAX) 17 gram powder 12-21 00:00: 00 03-13 00:00 :00 No [id number] 1{packe t} Take 1 Packet by mouth every 2 (two) hours as needed for Constipati on for up to 12 doses. [facility] ondansetron 4 mg disintegrat ing tablet 12-21 00:00: 00 03-13 00:00 :00 No [id number] 4mg Take 1 tablet by mouth every 8 (eight) hours as needed for Nausea and Vomiting (N/V) for up to 10 doses. [facility] predniSONE 20 mg tablet 5-10 00:00: 00 12-24 04:59 :00 No [id number] 20mg Take 1 tablet by mouth in the morning and 1 tablet in the evening. Do all this for 2 days. [facility] ity [facility] glycerin/mi neral oil, AGLO ENEMA, Enem 5-10 00:00: 00 12-22 04:59 :00 No [id number] 225mL Insert 225 mL into rectum once now for 1 dose. [facility] it[facility] FENTanyl PF (SUBLIMAZE (PF)) injection 50 mcg 09-28 08:45: 00 09-28 08:07 :00 No 50ug 50 mcg, Slow IV Push, ONCE, 1 dose, On Mon09/28/22 at 0245, Routine [facility] it[facility] iopamidol (ISOVUE 370-500 mL) injection 100 mL 09-28 07:45: 00 09-28 07:45 :00 No [id number] 100mL 100 mL, Intravenou s, ONCE, 1 dose, On Mon09/28/22 at 0145, Routine [facility] it[facility] NaCl 0.9% (NS) IV infusion 1,000 mL 09-28 06:45: 00 Yes 1000mL at 999 mL/hr, Intravenou s, CONTINUOUS , Starting on Mon09/28/22 at 0045, Until Discontinu ed, Routine [facility] ketorolac (TORADOL) injection 30 mg 09-28 06:45: 00 09-28 05:54 :00 No 30mg 30 mg, Slow IV Push, ONCE, 1 dose, On Mon09/28/22 at 0045, Routine [facility] dicyclomine 20 mg tablet 09-28 00:00: 00 03-29 00:00 :00 No [id number] 20mg Take 1 tablet by mouth every 6 (six) hours as needed for Abdominal pain. [facility] ondansetron (ZOFRAN) 4 mg tablet 09-28 00:00: 00 03-13 00:00 :00 No [id number] 4mg Take 1 tablet by mouth every 8 (eight) hours as needed for Nausea and Vomiting (N/V). [facility] pantoprazol e (PROTONIX) 40 mg EC tablet 2-15 00:00: 00 03-13 00:00 :00 No [id number] 40mg Take 1 tablet by mouth in the morning. [facility] gentamicin (GENOPTIC) 0.3 % ophthalmic drops 2 Drop 2021-08 17:00: 00 06-09 17:03 :00 No 2[drp] 2 Drop, Left Eye, ONCE, 1 dose, On [place] 06/09/22 at 1200, LUMA [facility] tetracaine (PONTOCAINE ) 0.5 % ophthalmic drops 2 Drop 2021-08 15:36: 00 06-09 15:45 :00 No 2[drp] 2 Drop, Left Eye, ONCE, 1 dose, On [place] 06/09/22 at 1045, Routine [facility] LISINOPRIL ORAL 2021-08 09:32: 12 Yes Take by mouth. [facility] gentamicin 0.3 % ophthalmic drops 2021-08 00:00: 00 06-15 04:59 :00 No [id number] 1[drp] Place 1 Drop in left eye every 1 (one) hour for 5 days. [facility] ketorolac 0.4 % ophthalmic solution 2021-08 00:00: 00 06-13 04:59 :00 No [id number] 1[drp] Place 1 Drop in left eye 4 (four) times daily for 3 days. [facility] ketorolac (TORADOL) injection 30 mg 01-09 03:45: 00 01-09 02:44 :00 No 30mg 30 mg, Slow IV Push, ONCE, 1 dose, [place] 01/09/20 at 2245, Routine
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 [facility] nisoldipine (SULAR ORAL) 2017-08 15:32: 34 Yes 20mg Take 20 mg by mouth daily. [facility] Immunizations Ordered Immunization Name Filled Immunization Name Date Status Comments Source Influenza Virus Vaccine Quad .5 mL IM 6+ MO 2018-07-17 00:00:00 Completed [facility] Influenza Virus Vaccine Quad .5 mL IM 6+ MO 2018-07-17 00:00:00 Completed [facility] Influenza Virus Vaccine Quad .5 mL IM 6+ MO 2018-07-17 00:00:00 Completed [facility] Influenza Virus Vaccine Quad .5 mL IM 6+ MO 2018-07-17 00:00:00 Completed [facility] Influenza Virus Vaccine Quad .5 mL IM 6+ MO 2018-07-17 00:00:00 Completed [facility] Influenza Virus Vaccine Quad .5 mL IM 6+ MO 2018-07-17 00:00:00 Completed [facility] Influenza Virus Vaccine Quad .5 mL IM 6+ MO 2018-07-17 00:00:00 Completed [facility] Influenza Virus Vaccine Quad .5 mL IM 6+ MO 2018-07-17 00:00:00 Completed [facility] Influenza Virus Vaccine Quad .5 mL IM 6+ MO (FLUZONE/FLULAVAL/F LUARIX) 2018-07-17 00:00:00 Completed [facility] Influenza Virus Vaccine Quad .5 mL IM 6+ MO (FLUZONE/FLULAVAL/F LUARIX) 2018-07-17 00:00:00 Completed [facility] Influenza Virus Vaccine Quad .5 mL IM 6+ MO 2018-07-17 00:00:00 Completed [facility] Influenza Virus Vaccine, No Preserv, age 6 months and up Unknown Completed Josie Seybold - External Influenza Virus Vaccine, No Preserv, age 6 months and up Unknown Completed Josie Seybold - External Influenza Virus Vaccine, No Preserv, age 6 months and up Unknown Completed Josie Seybold - External Influenza Virus Vaccine Quad .5 mL IM 6+ MO (FLUZONE/FLULAVAL/F LUARIX) Unknown Completed [facility] Influenza Virus Vaccine Quad .5 mL IM 6+ MO (FLUZONE/FLULAVAL/F LUARIX) Unknown Completed [facility] Influenza Virus Vaccine Quad .5 mL IM 6+ MO (FLUZONE/FLULAVAL/F LUARIX) Unknown Completed [facility] Influenza Virus Vaccine Quad .5 mL IM 6+ MO (FLUZONE/FLULAVAL/F LUARIX) Unknown Completed [facility] Influenza Virus Vaccine Quad .5 mL IM 6+ MO (FLUZONE/FLULAVAL/F LUARIX) Unknown Completed [facility] Influenza Virus Vaccine Quad .5 mL IM 6+ MO (FLUZONE/FLULAVAL/F LUARIX) Unknown Completed [facility] [facility] Vital Signs Vital Name Observation Time Observation Value Comments S ource Systolic blood pressure 2024-03-29 20:34:00 138 mm[Hg] [facility] Diastolic blood pressure 2024-03-29 20:34:00 83 mm[Hg] [facility] Heart rate 2024-03-29 20:34:00 74 /min [facility] Respiratory rate 2024-03-29 20:34:00 16 /min [facility] Body height 2024-03-29 20:34:00 172.7 cm [facility] Body weight 2024-03-29 20:34:00 109.272 kg [facility] BMI 2024-03-29 20:34:00 36.63 kg/m2 [facility] Oxygen saturation in Arterial blood by Pulse oximetry 2024-03-29 20:34:00 97 /min [facility] Systolic blood pressure 2024-03-13 20:41:00 117 mm[Hg] [facility] Diastolic blood pressure 2024-03-13 20:41:00 84 mm[Hg] [facility] Heart rate 2024-03-13 20:41:00 82 /min [facility] Body temperature 2024-03-13 20:41:00 36.78 Louise [facility] Respiratory rate 2024-03-13 20:41:00 20 /min [facility] Oxygen saturation in Arterial blood by Pulse oximetry 2024-03-13 20:41:00 95 /min [facility] Body weight 2024-03-13 09:17:00 112.974 kg [facility] BMI 2024-03-13 09:17:00 37.87 kg/m2 [facility] Body height 2024-03-11 18:51:00 172.7 cm [facility] Systolic blood pressure 2024-03-12 16:48:00 128 mm[Hg] [facility] Diastolic blood pressure 2024-03-12 16:48:00 74 mm[Hg] [facility] Heart rate 2024-03-12 16:48:00 70 /min [facility] Body temperature 2024-03-12 16:48:00 36.5 Louise [facility] Respiratory rate 2024-03-12 16:48:00 20 /min [facility] Oxygen saturation in Arterial blood by Pulse oximetry 2024-03-12 16:48:00 95 /min [facility] Body weight 2024-03-12 09:00:00 113.354 kg [facility] BMI 2024-03-12 09:00:00 37.87 kg/m2 [facility] Body height 2024-03-11 18:51:00 172.7 cm [facility] Systolic blood pressure 2024-01-19 17:45:00 170 mm[Hg] [facility] Diastolic blood pressure 2024-01-19 17:45:00 101 mm[Hg] [facility] Heart rate 2024-01-19 17:45:00 72 /min [facility] Body temperature 2024-01-19 17:45:00 36.72 Louise [facility] Respiratory rate 2024-01-19 17:45:00 16 /min [facility] Body height 2024-01-19 17:45:00 172.7 cm [facility] Body weight 2024-01-19 17:45:00 107.956 kg [facility] BMI 2024-01-19 17:45:00 36.19 kg/m2 [facility] Oxygen saturation in Arterial blood by Pulse oximetry 2024-01-19 17:45:00 98 /min [facility] Systolic blood pressure 2023-09-22 15:22:00 154 mm[Hg] Josie Seybo ld - External Diastolic blood pressure 2023-09-22 15:22:00 84 mm[Hg] Josie Seybo ld - External Heart rate 2023-09-22 15:22:00 76 /min Kelse y Seybold - External Body temperature 2023-09-22 15:22:00 36.78 Louise Josie Seybold - External Respiratory rate 2023-09-22 15:22:00 16 /min Josie Seybold - External Body height 2023-09-22 15:22:00 172.7 cm Deloris ey Seybold - External Body weight 2023-09-22 15:22:00 104.781 kg Deloris ey Seybold - External BMI 2023-09-22 15:22:00 35.12 kg/m2 Deloris ey Seybold - External Oxygen saturation in Arterial blood by Pulse oximetry 2023-09-22 15:22:00 97 /min Josie Seybo ld - External Systolic blood pressure 2023-08-02 21:25:00 138 mm[Hg] Josie Seybo ld - External Diastolic blood pressure 2023-08-02 21:25:00 84 mm[Hg] Josie Seybo ld - External Heart rate 2023-08-02 21:19:00 76 /min Kelse y Seybold - External Body temperature 2023-08-02 21:19:00 36.56 Louise Josie Seybold - External Respiratory rate 2023-08-02 21:19:00 16 /min Josie Seybold - External Body height 2023-08-02 21:19:00 172.7 cm Deloris ey Seybold - External Body weight 2023-08-02 21:19:00 110.791 kg Deloris ey Seybold - External BMI 2023-08-02 21:19:00 37.14 kg/m2 Deloris ey Seybold - External Oxygen saturation in Arterial blood by Pulse oximetry 2023-08-02 21:19:00 99 /min Josie Seybo ld - External Systolic blood pressure 2023-06-20 22:42:00 146 mm[Hg] Josie Casillas ld - External Diastolic blood pressure 2023-06-20 22:42:00 98 mm[Hg] Josie Casillas ld - External Heart rate 2023-06-20 22:42:00 88 /min Davis Han - External Body temperature 2023-06-20 22:42:00 36.83 Louise Josie Headold - External Respiratory rate 2023-06-20 22:42:00 18 /min Josie Headold - External Body height 2023-06-20 22:42:00 172.7 cm Deloris reed Seybold - External Body weight 2023-06-20 22:42:00 111.642 kg Deloris rede Seybold - External BMI 2023-06-20 22:42:00 37.42 kg/m2 Deloris Han - External Oxygen saturation in Arterial blood by Pulse oximetry 2023-06-20 22:42:00 97 /min Josie dougherty - External Systolic blood pressure 2023-02-11 22:30:00 133 mm[Hg] [facility] Diastolic blood pressure 2023-02-11 22:30:00 84 mm[Hg] [facility] Heart rate 2023-02-11 22:30:00 70 /min [facility] Respiratory rate 2023-02-11 22:30:00 16 /min [facility] Oxygen saturation in Arterial blood by Pulse oximetry 2023-02-11 22:30:00 97 /min [facility] Body temperature 2023-02-11 20:36:00 37.11 Louise [facility] Body height 2023-02-11 20:36:00 172.7 cm [facility] Body weight 2023-02-11 20:36:00 101.152 kg [facility] BMI 2023-02-11 20:36:00 33.91 kg/m2 [facility] Systolic blood pressure 2022-12-21 06:00:00 154 mm[Hg] [facility] Diastolic blood pressure 2022-12-21 06:00:00 93 mm[Hg] [facility] Heart rate 2022-12-21 06:00:00 71 /min [facility] Respiratory rate 2022-12-21 06:00:00 18 /min [facility] Oxygen saturation in Arterial blood by Pulse oximetry 2022-12-21 06:00:00 97 /min [facility] Body temperature 2022-12-21 03:40:00 36.72 Louise [facility] Body height 2022-12-21 03:40:00 172.7 cm [facility] Body weight 2022-12-21 03:40:00 99.791 kg [facility] BMI 2022-12-21 03:40:00 33.45 kg/m2 [facility] Systolic blood pressure 2022-09-28 08:07:00 130 mm[Hg] [facility] Diastolic blood pressure 2022-09-28 08:07:00 83 mm[Hg] [facility] Heart rate 2022-09-28 08:07:00 67 /min [facility] Respiratory rate 2022-09-28 08:07:00 17 /min [facility] Oxygen saturation in Arterial blood by Pulse oximetry 2022-09-28 08:07:00 99 /min [facility] Body temperature 2022-09-28 04:45:00 36.61 Louise [facility] Body height 2022-09-28 04:45:00 172.7 cm [facility] Body weight 2022-09-28 04:45:00 106.595 kg [facility] BMI 2022-09-28 04:45:00 35.73 kg/m2 [facility] Systolic blood pressure 2022-06-09 14:16:00 157 mm[Hg] [facility] Diastolic blood pressure 2022-06-09 14:16:00 88 mm[Hg] [facility] Heart rate 2022-06-09 14:16:00 84 /min [facility] Body temperature 2022-06-09 14:16:00 36.94 Louise [facility] Respiratory rate 2022-06-09 14:16:00 18 /min [facility] Body height 2022-06-09 14:16:00 172.7 cm [facility] 2022-06-09 14:16:00 106.595 kg [facility] BMI 2022-06-09 14:16:00 35.73 kg/m2 [facility] Oxygen saturation in Arterial blood by Pulse oximetry 2022-06-09 14:16:00 97 /min [facility] Heart rate 2020-01-24 03:42:11 69 /min [facility] Body temperature 2020-01-24 03:42:11 36.44 Louise [facility] Respiratory rate 2020-01-24 03:42:11 20 /min [facility] Systolic blood pressure 2020-01-24 03:40:00 154 mm[Hg] [facility] Diastolic blood pressure 2020-01-24 03:40:00 98 mm[Hg] [facility] Body height 2020-01-24 03:40:00 170.2 cm [facility] Body weight 2020-01-24 03:40:00 106.595 kg [facility] BMI 2020-01-24 03:40:00 36.81 kg/m2 [facility] Systolic blood pressure 2020-01-22 20:58:22 171 mm[Hg] [facility] Diastolic blood pressure 2020-01-22 20:58:22 105 mm[Hg] [facility] Body temperature 2020-01-22 20:58:22 36.44 Louise [facility] Respiratory rate 2020-01-22 20:58:22 20 /min [facility] Heart rate 2020-01-22 20:52:00 103 /min [facility] 2020-01-22 20:52:00 170.2 cm [facility] Body weight 2020-01-22 20:52:00 104.327 kg [facility] BMI 2020-01-22 20:52:00 36.02 kg/m2 [facility] Oxygen saturation in Arterial blood by Pulse oximetry 2020-01-22 20:52:00 98 /min [facility] Systolic blood pressure 2020-01-10 02:30:00 154 mm[Hg] [facility] Diastolic blood pressure 2020-01-10 02:30:00 105 mm[Hg] [facility] Heart rate 2020-01-10 02:30:00 83 /min [facility] Respiratory rate 2020-01-10 02:30:00 23 /min [facility] Oxygen saturation in Arterial blood by Pulse oximetry 2020-01-10 02:30:00 98 /min [facility] Body temperature 2020-01-10 00:26:00 36.89 Louise [facility] Body height 2020-01-10 00:26:00 172.7 cm [facility] Body weight 2020-01-10 00:26:00 106.595 kg [facility] BMI 2020-01-10 00:26:00 35.73 kg/m2 [facility] Procedures Procedure Date / Time Performed Performing Clinician Source HB ECG ROUTINE & RHYTHM STRIP 2024-03-13 13:05:29 Sarita Karl [facility] HB ECG ROUTINE & RHYTHM STRIP 2024-03-13 13:05:29 Karl Stein [facility] PHOSPHORUS 2024-03-13 10:04:00 Antonio Garcia [facility] MAGNESIUM 2024-03-13 10[facility]04[facility] (NA, K, CL, CO2, GLUCOSE, BUN, CREATININE, CA) 2024-03-13 10:04:00 Gerry Garcia [facility] CBC WITH DIFF 2024-03-13 10:04:00 Antonio Garcia [facility] PHOSPHORUS 2024-03-13 10:04:00 Antonio Garcia [facility] MAGNESIUM 2024-03-13 10:04:00 Antonio Garcia [facility] BASIC METABOLIC PANEL (NA, K, CL, CO2, GLUCOSE, BUN, CREATININE, CA) 2024-03-13 10:04:00 Gerry Garcia [facility] CBC WITH DIFF 2024-03-13 10:04:00 Antonio Garcia [facility] TROPONIN I 2024-03-13 05:54:00 Stefano [facility] TROPONIN I 2024-03-13 05:54:00 Stefano [facility] TROPONIN I 2024-03-13 02:15:00 Stefano [facility] ACTIVATED PARTIAL THRMPLAS LEENA 2024-03-13 02:15:00 Herbie [facility] TROPONIN I 2024-03-13 02:15:00 Stefano [facility] ACTIVATED PARTIAL THRMPLAS LEENA 2024-03-13 02:15:00 Herbie [facility] CATH PROCEDURE LOG 2024-03-12 23:00:07 Maury Hamilton [facility] CATH PROCEDURE LOG 2024-03-12 23:00:07 Maury Hamilton [facility] CARDIAC CATHETERIZATION 2024-03-12 22:40:42 Lorenzo cornejo [facility] CARDIAC CATHETERIZATION 2024-03-12 22:40:42 Lorenzo cornejo [facility] CARDIAC CATHETERIZATION 2024-03-12 22:40:42 Lorenzo cornejo [facility] CARDIAC CATHETERIZATION 2024-03-12 22:40:42 Lorenzo cornejo [facility] TROPONIN I 2024-03-12 17:29:00 Stefano Lor [facility] TROPONIN I 2024-03-12 17:29:00 Stefano [facility] HB ECG ROUTINE & RHYTHM STRIP 2024-03-12 14:57:43 Sarita [facility] HB ECG ROUTINE & RHYTHM STRIP 2024-03-12 14:57:43 Sarita [facility] TROPONIN I 2024-03-12 14:47:00 Stefano [facility] ACTIVATED PARTIAL THRMPLAS LEENA 2024-03-12 14:47:00 Luis Stoner [facility] TROPONIN I 2024-03-12 14:47:00 Lor Agarwal [facility] ACTIVATED PARTIAL THRMPLAS LEENA 2024-03-12 14:47:00 Luis Stoner [facility] TRANSTHORACIC ECHO (TTE) COMPLETE W/ CONTRAST 2024-03-12 13:34:00 Lor Agarwal [facility] TRANSTHORACIC ECHO (TTE) COMPLETE W/ CONTRAST 2024-03-12 13:34:00 [facility] 2024-03-12 12:00:00 Lor Agarwal [facility] GLYCOSYLATED HEMOGLOBIN (A1C) 2024-03-12 12:00:[address] [facility] CBC WITH DIFF 2024-03-12 12:00:00 Lor Agarwal [facility] GLYCOSYLATED HEMOGLOBIN (A1C) 2024-03-12 12:00:[address] [facility] MAGNESIUM 2024-03-12 09:17:00 Stefano Lor [facility] TROPONIN I 2024-03-12 09:17:00 Lor Agarwal [facility] FREE T4 2024-03-12 09:17:00 Lor Agarwal [facility] BASIC METABOLIC PANEL (NA, K, CL, CO2, GLUCOSE, BUN, CREATININE, CA) 2024-03-12 09:17:00 Lor Agarwal [facility] LIPID PANEL ([id number])(TOTAL CHOLESTEROL, TRIGLYCERIDES, HDL) 2024-03-12 09:17:[address] [facility] ACTIVATED PARTIAL THRMPLAS LEENA 2024-03-12 09:17:00 Luis Stoner [facility] LOW-DENSITY LIPOPROTEIN, DIRECT 2024-03-12 09:17:[address] [facility] MAGNESIUM 2024-03-12 09:17:00 Lor Agarwal [facility] TROPONIN I 2024-03-12 09:17:00 Stefano, [facility] FREE T4 2024-03-12 09:17:00 Stefano [facility] BASIC METABOLIC PANEL (NA, K, CL, CO2, GLUCOSE, BUN, CREATININE, CA) 2024-03-12 09:17:00 Stefano [facility] LIPID PANEL ([id number])(TOTAL CHOLESTEROL, TRIGLYCERIDES, HDL) 2024-03-12 09:17:[address] [facility] ACTIVATED PARTIAL THRMPLAS LEENA 2024-03-12 09:17:00 Luis Stoner [facility] LOW-DENSITY LIPOPROTEIN, DIRECT 2024-03-12 09:17:[address] [facility] HB ECG ROUTINE & RHYTHM STRIP 2024-03-12 07:51:38 Stefano [facility] HB ECG ROUTINE & RHYTHM STRIP 2024-03-12 07:51:38 Stefano [facility] TROPONIN I 2024-03-12 06:06:00 Stefano [facility] THYROID STIMULATING HORMONE 2024-03-12 06:06:00 Stefano [facility] TROPONIN I 2024-03-12 06:06:00 Stefano [facility] THYROID STIMULATING HORMONE 2024-03-12 06:06:00 Stefano [facility] ACTIVATED PARTIAL THRMPLAS LEENA 2024-03-12 02:57:00 Luis Stoner [facility] ACTIVATED PARTIAL THRMPLAS LEENA 2024-03-12 02:57:00 Luis Stoner [facility] TROPONIN I 2024-03-12 01:57:00 Stefano [facility] TROPONIN I 2024-03-12 01:57:00 Stefano [facility] PROTHROMBIN TIME / INR 2024-03-11 22:29:00 Nasir Stoner [facility] ACTIVATED PARTIAL THRMPLAS LEENA 2024-03-11 22:29:00 Luis Stoner [facility] PROTHROMBIN TIME / INR 2024-03-11 22:29:00 Nasir Stoner [facility] ACTIVATED PARTIAL THRMPLAS LEENA 2024-03-11 22:29:00 Luis Stoner [facility] LIPASE 2024-03-11 20:50:00 [facility] TROPONIN [facility] 2024-03-11 20:50:00 [facility] COMP. METABOLIC PANEL ([id number]) 2024-03-11 20:50:00 Luis Stoner [facility] CBC WITH DIFF 2024-03-11 20:50:00 Luis Stoner [facility] N-TERMINAL PRO-BNP 2024-03-11 20:50:00 Luis Stoner [facility] LIPASE 2024-03-11 20:50:00 Luis Stoner [facility] TROPONIN I 2024-03-11 20:50:00 Luis Stoner [facility] COMP. METABOLIC PANEL ([id number]) 2024-03-11 20:50:00 Luis Stoner [facility] CBC WITH DIFF 2024-03-11 20:50:00 Luis Stoner [facility] N-TERMINAL PRO-BNP 2024-03-11 20:50:00 Luis Stoner [facility] XR CHEST 1 VW 2024-03-11 19:28:10 Luis Stoner [facility] XR CHEST 1 VW 2024-03-11 19:28:10 Luis Stoner [facility] EKG-12 LEAD 2024-03-11 18:46:30 Luis Stoner [facility] EKG-12 LEAD 2024-03-11 18:46:30 [facility] CRITICAL CARE 2024-03-11 18:39:00 Luis Stoner [facility] CRITICAL CARE 2024-03-11 18:39:00 Luis Stoner [facility] XR CHEST 2 VW 2023-02-11 21:25:24 Ritika Nance [facility] LIPASE 2023-02-11 20:50:00 Ritika Nance [facility] TROPONIN I 2023-02-11 20:50:00 Ritika Nance Ryan [facility] COMP. METABOLIC PANEL ([id number]) 2023-02-11 20:50:00 Ritika Nance [facility] CBC WITH DIFF 2023-02-11 20:50:00 Ritika Nance [facility] PROTHROMBIN TIME / INR 2023-02-11 20:50:00 Ryan Nance [facility] D-DIMER 2023-02-11 20:50:00 Ritika Nance Ryan [facility] ACTIVATED PARTIAL THRMPLAS LEENA 2023-02-11 20:50:00 Ritika Nance [facility] N-TERMINAL PRO-BNP 2023-02-11 20:50:00 Anila Nance [facility] CONSENT/REFUSAL FOR DIAGNOSIS AND TREATMENT 2023-02-11 20:33:05 Doctor Unassigned, [place] [facility] D-DIMER 2022-12-21 04:56:00 Aries Salazar [facility] RAPID STREP SCREEN FOR GROUP A 2022-12-21 04:18:00 Aries Salazar [facility] COVID-19 (ID NOW RAPID TESTING) 2022-12-21 04:18:00 Aries Salazar [facility] XR ABDOMEN 2 VW 2022-12-21 04:16:00 Aries Salazar as [facility] XR CHEST 2 VW 2022-12-21 04:01:00 Aries Salazar [facility] LIPASE 2022-12-21 03:54:00 Aries Salazar [facility] TROPONIN I 2022-12-21 03:54:00 Aries Salazar [facility] COMP. METABOLIC PANEL ([id number]) 2022-12-21 03:54:00 Aries Salazar [facility] CBC WITH DIFF 2022-12-21 03:54:00 Aries Salazar [facility] CONSENT/REFUSAL FOR DIAGNOSIS AND TREATMENT 2022-12-21 03:35:49 Doctor Unassigned, [place] [facility] LIPASE 2022-09-28 05:53:00 Shannon Tate [facility] COMP. METABOLIC PANEL ([id number]) 2022-09-28 05:53:00 Shannon Tate [facility] CBC WITH DIFF 2022-09-28 05:53:00 Shannon Tate [facility] NOTICE OF PRIVACY PRACTICES 2022-09-28 04:21:22 Doctor Unassigned, [place] [facility] CONSENT/REFUSAL FOR DIAGNOSIS AND TREATMENT 2022-09-28 04:20:50 Doctor Unassigned, [place] [facility] CONSENT/REFUSAL FOR DIAGNOSIS AND TREATMENT 2022-06-09 14:12:56 Doctor Unassigned, [place] [facility] CT HEAD WO CONTRAST 2020-01-24 04:29:39 Shannon Tate [facility] CONSENT/REFUSAL FOR DIAGNOSIS AND TREATMENT 2020-01-24 03:34:06 Doctor Unassigned, [place] [facility] CREATINE KINASE 2020-01-22 21:04:00 [facility] 2020-01-22 21:04:00 Luis Stoner [facility] HEPATIC FUNCTION PANEL ([id number]) (ALB,T.PRO,BILI T,BU/BC,ALT,AST,ALK PHOS) 2020-01-22 21:04:00 Luis Stoner [facility] BASIC METABOLIC PANEL (NA, K, CL, CO2, GLUCOSE, BUN, CREATININE, CA) 2020-01-22 21:04:00 Luis Stoner [facility] CBC WITH DIFFERENTIAL 2020-01-22 21:04:00 Jean Stoner [facility] PROTHROMBIN TIME / INR 2020-01-22 21:04:00 Nasir Stoner [facility] ACTIVATED PARTIAL THRMPLAS LEENA 2020-01-22 21:04:00 Luis Stoner [facility] EKG-12 LEAD 2020-01-22 21:03:26 [facility] HEAD WO CONTRAST 2020-01-10 01:59:59 Shannon Tate [facility] ADC / LCC - DRUG SCREEN TRIAGE 2020-01-10 01:37:00 Shannon Tate [facility] COVID-19 (ID NOW RAPID TESTING) 2020-01-10 01:37:00 Shannon Tate [facility] LIPASE 2020-01-10 01:34:00 Shannon Tate [facility] MAGNESIUM 2020-01-10 01:34:00 Shannon Tate [facility] TROPONIN I 2020-01-10 01:34:00 Bebeto Scarnie [facility] COMP. METABOLIC PANEL ([id number]) 2020-01-10 01:34:00 Shannon Tate [facility] CBC WITH DIFFERENTIAL 2020-01-10 01:34:00 Davon Tate [facility] EKG-12 LEAD 2020-01-10 01:20:08 Shannon Tate [facility] NOTICE OF PRIVACY PRACTICES 2020-01-10 00:17:43 Doctor Unassigned, [place] [facility] CONSENT/REFUSAL FOR DIAGNOSIS AND TREATMENT 2020-01-10 00:17:22 Doctor Unassigned, [place] [facility] Encounters Start Date/Time End Date/Time Encounter Type Admission Type Attending [facility] Care Facility Care Department Encounter ID Source 2024-07-15 00:00:00 2024-07-15 00:00:00 Outpatient JOSSIE IGLESIAS [id number] Josie Han 2024-06-14 00:00:00 2024-06-14 08:07:40 Letter (Out) Kenneth Rai [facility] 1..840.114 350.1.13.10 [id number] [facility] 2024-05-15 00:00:00 2024-05-15 16:39:00 Telephone Bell Almonte [facility] 1..840.114 350.1.13.10 [id number] [facility] 2024-03-29 15:30:00 2024-03-29 16:13:54 Office Visit Artem Alonso [facility] [id number] [id number] [id number] [facility] 2024-03-26 08:00:00 2024-03-26 23:59:00 Hospital Encounter Bell Almonte [facility] BU[facility] [id number] [id number] [id number] [facility] 2024-03-14 00:00:00 2024-03-18 15:11:16 Patient Secure Msg Doctor Unassigned, [place] Doctor Unassigned, [place] [facility] [id number] [id number] [id number] [facility] 2024-03-11 13:54:00 2024-03-13 17:57:00 Inpatient U [facility] [id number] [facility] 2024-03-11 13:54:00 2024-03-13 17:57:00 Hospital Encounter Luis Stoner Mohamad Khaled [facility] [id number] 350.1.13.10 [id number] [facility] 2024-03-12 15:10:00 2024-03-12 16:10:00 Surgery Maury Hamilton [facility] [facility] 1.2.840.114 350.1.13.10 4.2.7.2.686 [id number] [facility] 2024-01-19 12:48:00 2024-01-19 13:34:00 Emergency X LIDIA FERNANDEZ MARYANN [facility] ERT [id number] [facility] 2024-01-19 12:48:00 2024-01-19 13:34:00 Emergency Lidia Fernandez [facility] 1.2.840.114 350.1.13.10 4.2.7.2.686 [id number] [facility] 2024-01-05 00:00:00 2024-01-05 00:00:00 Outpatient MUKUND LUIS [id number] Josie [facility] 2023-10-13 13:30:00 2023-10-13 13:30:00 Outpatient JOSSIE IGLESIAS [id number] Josie [facility] 2023-10-13 00:00:00 2023-10-13 00:00:00 Outpatient JOSSIE IGLESIAS [id number] Josie [facility] 2023-10-12 16:00:00 2023-10-12 16:00:00 Outpatient JOSSIE IGLESIAS [id number] Josie [facility] 2023-09-23 00:00:00 2023-09-23 00:00:00 Outpatient SABINE LUISNY JOSIE WILBURN [id number] Josie [facility] 2023-09-22 10:20:00 2023-09-22 10:20:00 Outpatient ELAIEN [facility]IE [facility] [id number] [facility] 09:15:00 2023-09-22 09:15:00 Outpatient MUKUND LUIS [id number] Josie [facility] 2023-09-22 00:00:00 2023-09-22 00:00:00 Outpatient MUKUND LUIS [id number] Josie [facility] 2023-09-22 00:00:00 2023-09-22 00:00:00 Outpatient MUKUND LUIS [id number] Josie [facility] 2023-09-01 00:00:00 2023-09-01 00:00:00 Outpatient JOSSIE IGLESIAS JOSIE [id number] [facility] 2023-08-30 16:00:00 2023-08-30 16:00:00 Outpatient JOSSIE IGLESIAS JOSIE [id number] [facility] 2023-08-08 00:00:00 2023-08-08 00:00:00 Outpatient JOSSIE IGLESIAS JOSIE [id number] Josie [facility] 2023-08-04 00:00:00 2023-08-04 00:00:00 Outpatient JOSSIE IGLESIAS JOSIE [id number] [facility] 2023-08-02 16:20:00 2023-08-02 16:20:00 Outpatient LUCRECIA WILBURN JOSIE [id number] [facility] 2023-08-02 15:30:00 2023-08-02 15:30:00 Outpatient JOSSIE IGLESIASCAROLYN WILBURN [id number] [facility] 2023-08-02 00:00:00 2023-08-02 00:00:00 Outpatient JOSIE JOSIE [id number] Josie [facility] 2023-08-01 10:00:00 2023-08-01 10:00:00 Outpatient JOSSIE IGLESIAS JOSIE [id number] [facility] 2023-07-27 14:30:00 2023-07-27 14:30:00 Outpatient JOSSIE IGLESIAS JOSIE [facility]IL[facility]URN [id number] [facility] 2023-07-24 16:00:00 2023-07-24 16:00:00 Outpatient JOSSIE IGLESIAS JOSIE [id number] [facility] 2023-07-19 14:30:00 2023-07-19 14:30:00 Outpatient JOSSIE IGLESIAS JOSIE [facility]IL[facility]URN [id number] [facility] 2023-07-18 11:30:00 2023-07-18 11:30:00 Outpatient JOSSIE IGLESIASCAROLYN WILBURN [id number] [facility] 2023-07-11 14:00:00 2023-07-11 14:00:00 Outpatient OJSSIE IGLESIAS [facility] [id number] [facility] 09:00:00 2023-07-04 09:00:00 Outpatient JOSSIE IGLESIAS JOSIE [id number] Josie [facility] 2023-06-20 16:30:00 2023-06-20 16:30:00 Outpatient JOSSIE IGLESIAS JOSIE [id number] [facility] 2023-06-20 00:00:00 2023-06-20 00:00:00 Outpatient JOSSIE IGLESIAS JOSIE [id number] [facility] 2023-06-15 16:30:00 2023-06-15 16:30:00 Outpatient JOSSIE IGLESIAS JOSIE WILBURN [id number] [facility] 2023-06-15 00:00:00 2023-06-15 00:00:00 Outpatient MD JOSIE KENDALL [id number] [facility] 2023-06-12 16:30:00 2023-06-12 16:30:00 Outpatient JOSSIE IGLESIAS JOSIE [id number] [facility] 2023-02-24 00:00:00 2023-02-24 00:00:00 Telephone David [facility] 1..840.114 350.1.13.10 4.2.7.2.686 [id number] [facility] 2023-02-11 15:41:00 2023-02-11 18:32:00 Emergency X RITIKA NANCE [facility] ERT [id number] [facility] 2023-02-11 15:41:00 2023-02-11 18:32:00 Emergency Ritika Nance [facility] 1..840.114 350.1.13.10 4.2.7.2.686 [id number] [facility] 2022-12-20 22:45:00 2022-12-21 01:16:00 Emergency X ARIES SALAZAR [facility] ERT [id number] [facility] 2022-12-20 22:45:00 2022-12-21 01:16:00 Emergency Aries Salazar [facility] 1.2.840.114 350.1.13.10 4.2.7.2.686 [id number] [facility] 2022-09-27 22:48:00 2022-09-28 02:20:00 Emergency X SHANNON TATE [facility] ERT [id number] [facility] 2022-09-27 22:48:00 2022-09-28 02:20:00 Emergency Shannon Tate [facility] 1.2.840.114 350.1.13.10 4.2.7.2.686 [id number] [facility] 2022-06-09 09:17:00 2022-06-09 12:10:00 Emergency JIMMY DUMONT TIMOTHY [facility] ERT [id number] [facility] 2022-06-09 09:17:00 2022-06-09 12:10:00 Emergency Jimmy Hernandez [facility] 1.2.840.114 350.1.13.10 4.2.7.2.686 [id number] [facility] 2022-06-09 00:00:00 2022-06-09 00:00:00 Orders Only Doctor Unassigned, [place] [facility] 1.2.840.114 350.1.13.10 4.2.7.2.686 [id number] [facility] 2020-01-23 22:46:07 2020-01-24 00:19:00 Emergency SHANNON HERNANDEZ [facility] ERT [id number] [facility] 2020-01-23 22:46:07 2020-01-24 00:19:00 Emergency Shannon Tate [facility] 1.2.840.114 350.1.13.10 4.2.7.2.686 [id number] [facility] 2020-01-22 15:47:57 2020-01-22 16:43:00 Emergency Luis Stoner [facility] 1.2.840.114 350.1.13.10 4.2.7.2.686 [id number] [facility] 2020-01-22 15:47:57 2020-01-22 15:47:57 [facility] [id number] 2020-01-09 19:21:02 2020-01-09 22:02:00 Emergency Shannon Tate [facility] 1.2.840.114 350.1.13.10 4.2.7.2.686 [id number] [facility] 2020-01-09 19:21:02 2020-01-09 22:02:00 Emergency SHANNON HERNANDEZ [facility] ERT [id number] [facility] Results Test Description Test Time Test Comments Results Result Comments Source Cardiovascular Catheterization 23:45:02 Left Heart Cath/Coronary Angiography Andreea Rai Date of Service: 03/12/2024 ?5:50 PM Attending faculty: Isamar Davis: Dr Wills Physician: Dr. Almonte Procedures Performed:LHC/Coronary angiogram: CPT 16311HRVR single vessel: CPT 35722 Indication/Diagnosis: NSTEMI and Hypertensive emergency. Consent: Risks, benefits, alternatives and complications of the procedure discussed with the patient, who understood and agreed to proceed. Aseptic technique: Chlorprep Local Anesthesia: 1% lidocaine without epinephrine Sedation: Moderate Access site: Right radial artery Closure Method: TR band Sterile dressing: yes Complications: none Procedures: After patient identification/verific ation, the patient was thereafter transferred to the labourers table. ?The access site was prepped and draped in usual sterile fashion. After administering sedation, time out was done. Under ultrasound guidance, using Seldinger technique, the Right radial artery was accessed and a 6 Fr Slender sheath was introduced into the artery. A5 Fr TIG 4.0 catheter was used to cannulate the LM. Selective coronary angiography was done using several views. A 5 Fr TIG 4.0 was used to cross the AV with the J wire and the catheter was advanced into the LV where selective LVEDP was measured. The catheter was then used to cannulate the RCA and selective coronary angiography was done using multiple views. The attending physician was present throughout the procedure and provided the highest level of supervision. IVUS:We used 6 Uzbek JR4 guide to engage the RCA. We passed a BMW wire into the RCA artery past the lesion. . ?IVUS imaging showed patent RCA stent with NO evidence of thrombus. Mild ISR. At the end of the procedure, all wires were removed and final angiogram was obtained which showed ALFREDO III flow . TR band was applied after sheath removal Findings: Coronary dominance: right Left main: Large, patent LAD: Large vessel, luminal irregularilies D1: large bifurcating D1, patent D2: Medium sized. patent LCX: Patent OM1: Large OM1, patent OM2: small sized, patent OM3: Small sized, patent RCA: Large dominant vessel, mid patent stent (IVUS indicative of patent stent), distal 30-40% ?(IVUS indicative non-severe disease) PDA: patent PLB: Patent LVEDP: 9 mmHg Post-Procedure Sedation AddendumImmediately prior to start of sedation, the patient was evaluated and there was no change from the pre-procedure evaluation. I was present and directed medical care.The patient underwent moderate sedation ?for the procedure. The medications administered were recorded in the MAR; oxygenation, ventilation and circulation were monitored continuously and were recorded in the EMR. I evaluated the patient after the procedure.The patient was evaluated immediately as recovering from sedation. Complications: None Impression:RCA stent patent, mild in stent restenosis. No thrombus confirmed by IVUSLAD and Lcx system non obstructive CADNormal filling pressure Plan:Monitor on Telemetry Floor ASA 81 mg daily Brilinta 90 mg BID Statin Beta ricardo Aggressive medical management Importance of DAPT adherence discussed with patient and . Continue aggressive risk factor modificationPatient counseled extensively on medication compliance, diet and exercise. Godfrey Adhikari MD 03/12/2024 5:50 [facility] 18:22:24* Test Item Value Reference Range Interpretation Comme nts Height (test code = 5154219246) 68 in Weight (test code = 7718984976) 249 lbs Systolic BP (test code = 2034882336) 124 mmHg Diastolic BP (test code = 6673742742) 84 mmHg Heart Rate (test code = 9917728303) 59 bpm LVOT stroke volume (test code = 1564381948) 57.50 cm3 EF(Teich) (test code = 3333103082) 65.80 % LVIDD (test code = 7763768418) 5.50 cm LVIDS (test code = 3645993659) 3.50 cm Left Ventricular End Systolic Volume by Teichholz Method (test code = 6716741) 50.4 mL Left Ventricular End Diastolic Volume by Teichholz Method (test code = 7820658) 147.3 mL IVS (test code = 5435534842) 1.10 cm LVPWD (test code = 6898634069) 1.08 cm LVOT diameter (test code = 9404172316) 2.11 cm LVOT area (test code = 1719789779) 3.50 cm2 FS (test code = 2801038214) 37 % MV Peak E Deon (test code = 5079761501) 61.3 cm/s MV Peak A Deon (test code = 1500949665) 76.3 cm/s E/A ratio (test code = 1015138788) 0.80 ratio E wave decelartion time (test code = 9171550843) 0.20 s MV E/e' septal (test code = 9742622657) 5.5 cm/s LA Volume Index (BP) (test code = 0176128658) 41.6 mL/m2 LA volume (BP) (test code = 4944016903) 93.3 mL LVOT peak deon (test code = 7353296868) 81.4 cm/s LVOT mn grad (test code = 4242425383) 1.4 mmHg LV GLS Endo Peak A2C () (test code = 7887245398) -17.60 % LV GLS Endo Peak A3C () (test code = 9197743578) -13.60 % LV GLS Endo Peak A4C () (test code = 9227653455) -18.40 % LV GLS Endo Peak Avg () (test code = 7621774952) -16.50 % BSA (test code = 8191808247) 2.24 m2 LA size (test code = 3671593258) 5.3 cm LAV(MOD-sp2) (test code = 3401833082) 76.80 mL LAV(MOD-sp4) (test code = 4619338140) 100.60 mL Tapse (test code = 0989949150) 1.60 cm AV LVOT peak gradient (test code = 8224938829) 2.7 mmHg LVOT peak VTI (test code = 6508463780) 16.4 cm LV V1 mean (test code = 1786741281) 56.10 cm/s MV Prop V (test code = 6024719643) 44.10 cm/s Ao root diam (test code = 4847985443) 4.00 cm Aortic root (test code = 8424145235) 4.0 cm Ao root annulus (test code = 8810639675) 4.0 cm PW (test code = 2541237714) 1.08 cm 0.6-1.1 EF - 2D (test code = 43782229) 65.80 % Interventricular Septum Diastolic Thickness by 2D (test code = 1351162) 1.10 cm GLS (test code = 0734932956) -16 % A2C EF (test code = 4852477043) 54.40 % EF(sp2-el) (test code = 7624694523) 64.90 % SV(MOD-sp2) (test code = 4091886191) 56.40 mL LV Diastolic Volume (BP) (test code = 4543597380) 127.8 mL A4C EF (test code = 4857017088) 57.40 % EF(MOD-bp) (test code = 1783981984) 59.90 % EF(sp4-el) (test code = 0239715060) 39.70 % LV Systolic Volume (BP) (test code = 0976619402) 51.2 mL SV(MOD-bp) (test code = 7955583602) 76.60 mL SV(MOD-sp4) (test code = 8929646712) 81.60 mL SV(sp4-el) (test code = 3404307584) 69.80 mL EF (test code = 2292080342) 60 Left Ventricular Stroke Volume by 2-D Biplane-MOD (test code = 8902823) 76.6 mL LV Diastolic Volume Index (BP) (test code = 2264914124) 57.1 mL/m2 LV Systolic Volume Index (BP) (test code = 7543654353) 22.9 mL/m2 Radiology Study observation (narrative) (test code = 83641-5) JAZZMINE (test code = JAZZMINE) ?Left?Ventricle: Left ventricle size is normal. Normal wall thickness. Normal wall motion. Normal systolic function with a visually estimated EF of 55 - 60%. EF by 2D Graves biplane is 60%. Global longitudinal strain is -16%. There is grade 1 diastolic dysfunction. ?Right?Ventricle: Right ventricle is mildly dilated. Normal systolic function. ?Pericardium: The pericardium is normal. No pericardial effusion. ?Left?Atrium: Left atrium is mildly dilated. Left atrium volume index is 41.6 mL/m2. ?Tricuspid?Valve: There is trivial tricuspid regurgitation.Insuffic ient tricuspid regurgitation jet to estimate RVSP . Left VentricleLeft ventricle size is normal. Normal wall thickness. Normal wall motion. Normal systolic function with a visually estimated EF of 55 - 60%. EF by 2D Graves biplane is 60%. Global longitudinal strain is -16%. There is grade 1 diastolic dysfunction.Right VentricleRight ventricle is mildly dilated. Normal systolic function.Left AtriumLASr_ED 33%. Left atrium is mildly dilated. Left atrium volume index is 41.6 mL/m2.Right AtriumRight atrium size is normal.IVC/SVCIVC was not well visualized.Mitral ValveMitral valve structure is normal. Trace transvalvular regurgitation.Tricuspi d ValveTricuspid valve structure is normal. There is trivial tricuspid regurgitation.Insuffic ient tricuspid regurgitation jet to estimate RVSP .Aortic ValveAortic valve opens well. Mild transvalvular regurgitation. No hemodynamically significant .Pulmonic ValveNot well visualized. Trace transvalvular regurgitation.Ascendin g AortaNormal sized aortic root.PericardiumThe pericardium is normal. No pericardial effusion.Study DetailsStudy quality was good. A complete echocardiogram was performed using 2D, color flow Doppler, spectral Doppler and strain. The apical, parasternal, subcostal and suprasternal views were obtained. 3 mL of Optison ultrasound enhancing agent used. Patient exhibited sinus rhythm. [facility] / [id number] 23:47:41* Test Item Value Reference Range Interpretation Comme nts PROTIME PATIENT (test code = 5964-2) 12.1 10.1-12.6 INR (test code = 6301-6) 1.0 Normal INR <1.1; Warfarin Therapeutic range 2.0 to 3.0 or 2.5 to 3.5, depending upon the indications. Lab Interpretation (test code = 74369-3) Normal [facility]2024-07-29 23:47:41* Test Item Value Reference Range Interpretation Comme nts APTT Patient (test code = 3173-2) 135 26-36 HH JAZZMINE (test code = JAZZMINE) The [facility] patient population mean normal value for aPTT is 30 seconds. Lab Interpretation (test code = 86051-7) Abnormal [facility] / [id number] 23:47:41* Test Item Value Reference Range Interpretation Comme nts PROTIME PATIENT (test code = 5964-2) 12.1 10.1-12.6 INR (test code = 6301-6) 1.0 Normal INR <1.1; Warfarin Therapeutic range 2.0 to 3.0 or 2.5 to 3.5, depending upon the indications. Lab Interpretation (test code = 01570-7) Normal [facility]24-07-29 23:47:41* Test Item Value Reference Range Interpretation Comme nts APTT Patient (test code = 3173-2) 135 26-36 HH JAZZMINE (test code = JAZZMINE) The [facility] patient population mean normal value for aPTT is 30 seconds. Lab Interpretation (test code = 85144-8) Abnormal [facility] [id number] 22:11:53* Test Item Value Reference Range Interpretation Comme nts NT-proBNP (test code = 94821-4) <=125 Lab Interpretation (test cod e = 32614-4) Normal [facility] [id number] 22:11:53* Test Item Value Reference Range Interpretation Comme nts NT-proBNP (test code = 27407-4) <=125 Lab Interpretation (test cod e = 29000-2) Normal [facility] [id number] 22:05:44* Test Item Value Reference Range Interpretation Comme nts TROPONIN I (test code = 3144139569) 0.081 ng/mL <=0.034 H JAZZMINE (test code = JAZZMINE) Reference (Normal) [...] of biotin. Lab Interpretation (test code = 29954-2) Abnormal [facility] [id number] 22:05:44* Test Item Value Reference Range Interpretation Comme nts TROPONIN I (test code = 4602251252) 0.081 ng/mL <=0.034 H JAZZMINE (test code = JAZZMINE) Reference (Normal) [...] of biotin. Lab Interpretation (test code = 45195-2) Abnormal [facility]OLIC PANEL (98468)2024-03-11 21:55:00* Test Item Value Reference Range Interpretation Comme nts NA (test code = 2968106022) 136 mmol/L 135-145 K (test code = 1587447652) 4.3 mmol/L 3.5-5.0 CL (test code = 4610457683) 105 mmol/L 98-108 CO2 TOTAL (test code = 4783461495) 19 mmol/L 23-31 L AGAP (test code = 4026779040) 12 2-16 BUN (test code = 6852524261) 9 mg/dL 7-23 GLUCOSE (test code = 3282402060) 87 mg/dL 70-110 CREATININE (test code = 2160-0) 0.77 mg/dL 0.60-1.25 TOTAL BILI (test code = 5994494983) 0.9 mg/dL 0.1-1.1 CALCIUM (test code = 9879014749) 9.0 mg/dL 8.6-10.6 T PROTEIN (test code = 6912105988) 8.1 g/dL 6.3-8.2 ALBUMIN (test code = 9421694109) 4.7 g/dL 3.5-5.0 ALK PHOS (test code = 7332041811) 84 U/L 34-122 ALTv (test code = 1742-6) 25 U/L 5-50 AST(SGOT) (test code = 0332838759) 29 U/L 13-40 eGFR (test code = 80165-9) 111.8 mL/min/1.73m2 CKD-EPI eGFR (2020). Assuming creatinine has been stable day-to-day for at least three months, the eGFR indicates Category G1 (>= 90 mL/min/1.73 m2) Lab Interpretation (test code = 08756-4) Abnormal [facility]2024-[facility]-29 21:55:00* Test Item Value Reference Range Interpretation Comme nts LIPASE (test code = 0841373909) 83 U/L 0-220 Lab Interpretation (test cod e = 19461-3) Normal [facility]OLIC PANEL (37917)2024-03-11 21:55:00* Test Item Value Reference Range Interpretation Comme nts NA (test code = 8676083518) 136 mmol/L 135-145 K (test code = 2236468461) 4.3 mmol/L 3.5-5.0 CL (test code = 8092198846) 105 mmol/L 98-108 CO2 TOTAL (test code = 1854681215) 19 mmol/L 23-31 L AGAP (test code = 2531937648) 12 2-16 BUN (test code = 7468278657) 9 mg/dL 7-23 GLUCOSE (test code = 5875666878) 87 mg/dL 70-110 CREATININE (test code = 2160-0) 0.77 mg/dL 0.60-1.25 TOTAL BILI (test code = 9477347011) 0.9 mg/dL 0.1-1.1 CALCIUM (test code = 9333428228) 9.0 mg/dL 8.6-10.6 T PROTEIN (test code = 3845797893) 8.1 g/dL 6.3-8.2 ALBUMIN (test code = 7163140547) 4.7 g/dL 3.5-5.0 ALK PHOS (test code = 7604165833) 84 U/L 34-122 ALTv (test code = 1742-6) 25 U/L 5-50 AST(SGOT) (test code = 2935840446) 29 U/L 13-40 eGFR (test code = 04684-3) 111.8 mL/min/1.73m2 CKD-EPI eGFR (2020). Assuming creatinine has been stable day-to-day for at least three months, the eGFR indicates Category G1 (>= 90 mL/min/1.73 m2) Lab Interpretation (test code = 52744-4) Abnormal [facility]24-[facility] 21:55:00* Test Item Value Reference Range Interpretation Comme nts LIPASE (test code = 2712529751) 83 U/L 0-220 Lab Interpretation (test cod e = 78097-9) Normal [facility] WITH [id number] 21:13:11* Test Item Value Reference Range Interpretation Comme nts WBC (test code = 6690-2) 10.32 4.20-10.70 RBC (test code = 789-8) 4.44 4.26-5.52 HGB (test code = 718-7) 15.0 g/dL 12.2-16.4 HCT (test code = 4544-3) 44.2 % 38.4-49.3 MCV (test code = 787-2) 99.5 fL 81.7-95.6 H MCH (test code = 785-6) 33.8 pg 26.1-32.7 H MCHC (test code = 786-4) 33.9 g/dL 31.2-35.0 RDW-SD (test code = 18096-3) 47.6 fL 38.5-51.6 RDW-CV (test code = 788-0) 13.1 % 12.1-15.4 PLT (test code = 777-3) 270 150-328 MPV (test code = 99430-4) 10.0 fL 9.8-13.0 NRBC/100 WBC (test code = 3516869332) 0.0 0.0-10.0 NRBC x10^3 (test code = 2801814852) See_Comment [Automated messa ge] The system which generated this result transmitted reference range: 10*3/?L. The reference range was not used to interpret this result as normal/abnormal. GRAN MAT (NEUT) % (test code = 770-8) 76.4 % IMM GRAN % (test code = 6413495010) 0.80 % LYMPH % (test code = 736-9) 14.1 % MONO % (test code = 5905-5) 6.6 % EOS % (test code = 713-8) 1.7 % BASO % (test code = 706-2) 0.4 % GRAN MAT x10^3(ANC) (test code = 0057325841) 7.88 10*3/uL 1.99-6.95 H IMM GRAN x10^3 (test code = 6986898526) 0.08 10*3/uL 0.00-0.06 H LYMPH x10^3 (test code = 731-0) 1.46 10*3/uL 1.09-3.23 MONO x10^3 (test code = 742-7) 0.68 10*3/uL 0.36-1.02 EOS x10^3 (test code = 711-2) 0.18 10*3/uL 0.06-0.53 BASO x10^3 (test code = 704-7) 0.04 10*3/uL 0.01-0.09 Lab Interpretation (test code = 64104-7) Abnormal [facility] WITH [id number] 21:13:11* Test Item Value Reference Range Interpretation Comme nts WBC (test code = 6690-2) 10.32 4.20-10.70 RBC (test code = 789-8) 4.44 4.26-5.52 HGB (test code = 718-7) 15.0 g/dL 12.2-16.4 HCT (test code = 4544-3) 44.2 % 38.4-49.3 MCV (test code = 787-2) 99.5 fL 81.7-95.6 H MCH (test code = 785-6) 33.8 pg 26.1-32.7 H MCHC (test code = 786-4) 33.9 g/dL 31.2-35.0 RDW-SD (test code = 25673-3) 47.6 fL 38.5-51.6 RDW-CV (test code = 788-0) 13.1 % 12.1-15.4 PLT (test code = 777-3) 270 150-328 MPV (test code = 44874-4) 10.0 fL 9.8-13.0 NRBC/100 WBC (test code = 3654561990) 0.0 0.0-10.0 NRBC x10^3 (test code = 4840152532) See_Comment [Automated messa ge] The system which generated this result transmitted reference range: 10*3/?L. The reference range was not used to interpret this result as normal/abnormal. GRAN MAT (NEUT) % (test code = 770-8) 76.4 % IMM GRAN % (test code = 5849563433) 0.80 % LYMPH % (test code = 736-9) 14.1 % MONO % (test code = 5905-5) 6.6 % EOS % (test code = 713-8) 1.7 % BASO % (test code = 706-2) 0.4 % GRAN MAT x10^3(ANC) (test code = 9994740010) 7.88 10*3/uL 1.99-6.95 H IMM GRAN x10^3 (test code = 4178860776) 0.08 10*3/uL 0.00-0.06 H LYMPH x10^3 (test code = 731-0) 1.46 10*3/uL 1.09-3.23 MONO x10^3 (test code = 742-7) 0.68 10*3/uL 0.36-1.02 EOS x10^3 (test code = 711-2) 0.18 10*3/uL 0.06-0.53 BASO x10^3 (test code = 704-7) 0.04 10*3/uL 0.01-0.09 Lab Interpretation (test code = 14592-6) [facility] [id number] 20:47:41Study: Single view chest. Ordering Physician: GIANA STONER Date: 03/11/2024 2:00 PM History:chestpain COMPARISON: None. Findings: Single frontal view chest demonstrates a normal heart size. Thelungs are clear without infiltrate, pleural effusion or pneumothorax. Noacute osseous abnormality is identified.[facility] [id number] 20:47:41Study: Single view chest. Ordering Physician: GIANA STONER Date: 03/11/2024 2:00 PM History:chestpain COMPARISON: None. Findings: Single frontal view chest demonstrates a normal heart size. Thelungs are clear without infiltrate, pleural effusion or pneumothorax. Noacute osseous abnormality is identified.[facility]Critical [id number] 18:39:00Luis Stoner MD ? ? 03/11/2024 ?8:56 PMCritical Care Performed by: Luis Stoner MDAuthorizedby: Luis Stoner MD ?Critical care provider statement: ?Critical care time (minutes): ?60 ?Critical care time was exclusive of: ?Separately billable procedures and treating other patients and teaching time ?Critical care was necessary to treat or prevent imminent or life-threatening deterioration of the following conditions: ?Circulatory failure ?Critical care was time spent personally by me on the following activities: ?Development of treatment plan with patient or surrogate, evaluation ofpatient's response to treatment, examination of patient, obtaining history from patient or surrogate, ordering and performing treatments and interventions, ordering and review of laboratory studies, ordering and review of radiographic studies, pulse oximetry, re-evaluation of patient's condition and review of old charts ?Care discussed with: admitting provider ?Comments: ? Due to a high probability of clinically significant, life threatening deterioration, the patient required my highest level of preparedness to intervene emergently and I personally spent this critical care time directly and personally managing the patient. This critical care time included obtaining a history; examining thepatient; pulse oximetry; ordering and review of studies; arranging urgent treatment with development of a management plan; evaluation of patient's response to treatment; frequent reassessment; and, discussions with other providers.This critical care time was performed to assess and manage the high probability of imminent, life-threatening deterioration that could result in multi-organ failure. Itwas exclusive of separately billable procedures and treating other patients.[facility] HospitalD-[id number] 22:03:21* Test Item Value Reference Range Interpretation Comments D-DIMER (test code = 5915274657) See_Comment [Automated message] The system which generated this result transmitted reference range: <0.41 ?g/mL (FEU). The reference range was not used to interpret this result as normal/abnormal. JAZZMINE (test code = JAZZMINE) This test may be used in conjunction with a clinical pretest probability (PTP) assessment model to exclude venous thromboembolism (VTE) in patients suspected of deep venous thrombosis (DVT) and pulmonary embolism (PE) A D-Dimer value less than 0.50 ?g/ml (FEU) has a negative predicative value of 96 to 100% (95% CI)and 97 to 100% (95% CI) as an aid in the diagnosis of deep vein thrombosis (DVT) and pulmonary embolism when there is low or moderate pretest probability of PE or DVT. D-Dimer values are expressed in initial fibrinogen equivalent units (FEU)" The assay results should be used with other information, including the clinical context, in forming a diagnosis. Lab Interpretation (test code = 32755-6) Normal [facility] HospitalTROPONIN [id number] 21:35:32* Test Item Value Reference Range Interpretation Comme nts TROPONIN I (test code = 6651248326) 0.002 ng/mL <=0.034 JAZZMINE (test code = JAZZMINE) [...] of biotin. Lab Interpretation (test code = 88027-0) Normal [facility] HospitalN-TERMINAL [id number] 21:31:54* Test Item Value Reference Range Interpretation Comme nts NT-proBNP (test code = 9757164142) 64 pg/mL <=125 JAZZMINE (test code = JAZZMINE) Biotin has been reported to cause a negative bias, interpret results relative to patient's use of biotin. Lab Interpretation (test code = 23881-3) Normal [facility]COMP. METABOLIC PANEL (54947)2023-02-11 21:24:52* Test Item Value Reference Range Interpretation Comme nts NA (test code = 2974659128) 138 mmol/L 135-145 K (test code = 8815581473) 4.3 mmol/L 3.5-5.0 CL (test code = 6908659416) 102 mmol/L 98-108 CO2 TOTAL (test code = 0032464280) 25 mmol/L 23-31 AGAP (test code = 9950731528) 11 2-16 BUN (test code = 0862744898) 12 mg/dL 7-23 GLUCOSE (test code = 3871718472) 127 mg/dL 70-110 H CREATININE (test code = 3582533991) 0.70 mg/dL 0.60-1.25 TOTAL BILI (test code = 5866148674) 0.5 mg/dL 0.1-1.1 CALCIUM (test code = 3827031875) 9.3 mg/dL 8.6-10.6 T PROTEIN (test code = 7489207206) 7.5 g/dL 6.3-8.2 ALBUMIN (test code = 4164790195) 4.5 g/dL 3.5-5.0 ALK PHOS (test code = 9548835843) 79 U/L 34-122 ALTv (test code = 1742-6) 28 U/L 5-50 AST(SGOT) (test code = 6406290183) 25 U/L 13-40 eGFR (test code = 2168369040) 122.0 mL/min/1.73m2 JAZZMINE (test code = JAZZMINE) Association of [...] or abnormalities in imaging tests). Lab Interpretation (test code = 48761-0) Abnormal [facility] HospitalLIPASE2023-07-01 21:24:52* Test Item Value Reference Range Interpretation Comme nts LIPASE (test code = 0414249637) 88 U/L 0-220 Lab Interpretation (test cod e = 62398-2) Normal [facility] HospitalACTIVATED PARTIAL THRMPLAS ZLB4823-03-15 21:21:16* Test Item Value Reference Range Interpretation Comme [facility] APTT Patient (test code = 3173-2) 27 See_Comment [Automated message] The system which generated this result transmitted reference range: 23 - 38 Seconds. The reference range was not used to interpret this result as normal/abnormal. JAZZMINE (test code = JAZZMINE) The [facility] patient population mean normal value for aPTT is 30 seconds. Lab Interpretation (test code = 83654-1) Normal [facility] HospitalPROTHROMBIN TIME / [id number] 21:19:10* Test Item Value Reference Range Interpretation Comme [facility] PROTIME PATIENT (test code = 5964-2) 12.6 See_Comment [Automated Styloolaa ge] The system which generated this result transmitted reference range: 12.0 - 14.7 Seconds. The reference range was not used to interpret this result as normal/abnormal. INR (test code = 6301-6) 1.0 Normal INR <1.1; Warfarin Therapeutic range 2.0 to 3.0 or 2.5 to 3.5, depending upon the indications. Lab Interpretation (test code = 89041-4) Normal [facility] HospitalCBC WITH [id number] 21:12:28* Test Item Value Reference Range Interpretation Comme [facility] WBC (test code = 6690-2) 6.69 See_Comment [Automated Styloolaa ge] The system which generated this result transmitted reference range: 4.20 - 10.70 10*3/?L. The reference range was not used to interpret this result as normal/abnormal. RBC (test code = 789-8) 4.63 See_Comment [Automated Styloolaa ge] The system which generated this result transmitted reference range: 4.26 - 5.52 10*6/?L. The reference range was not used to interpret this result as normal/abnormal. HGB (test code = 718-7) 15.6 g/dL 12.2-16.4 HCT (test code = 4544-3) 44.5 % 38.4-49.3 MCV (test code = 787-2) 96.1 fL 81.7-95.6 H MCH (test code = 785-6) 33.7 pg 26.1-32.7 H MCHC (test code = 786-4) 35.1 g/dL 31.2-35.0 H RDW-SD (test code = 00549-8) 44.4 fL 38.5-51.6 RDW-CV (test code = 788-0) 12.7 % 12.1-15.4 PLT (test code = 777-3) 281 See_Comment [Automated messa ge] The system which generated this result transmitted reference range: 150 - 328 10*3/?L. The reference range was not used to interpret this result as normal/abnormal. MPV (test code = 95612-3) 9.9 fL 9.8-13.0 NRBC/100 WBC (test code = 0874520413) 0.0 See_Comment [Automated me ssage] The system which generated this result transmitted reference range: 0.0 - 10.0 /100 WBCs. The reference range was not used to interpret this result as normal/abnormal. NRBC x10^3 (test code = 7076587424) See_Comment [Automated messa ge] The system which generated this result transmitted reference range: 10*3/?L. The reference range was not used to interpret this result as normal/abnormal. GRAN MAT (NEUT) % (test code = 770-8) 60.5 % IMM GRAN % (test code = 4959755387) 1.80 % LYMPH % (test code = 736-9) 27.4 % MONO % (test code = 5905-5) 8.2 % EOS % (test code = 713-8) 1.2 % BASO % (test code = 706-2) 0.9 % GRAN MAT x10^3(ANC) (test code = 4186540620) 4.05 10*3/uL 1.99-6.95 IMM GRAN x10^3 (test code = 7443430310) 0.12 10*3/uL 0.00-0.06 H LYMPH x10^3 (test code = 731-0) 1.83 10*3/uL 1.09-3.23 MONO x10^3 (test code = 742-7) 0.55 10*3/uL 0.36-1.02 EOS x10^3 (test code = 711-2) 0.08 10*3/uL 0.06-0.53 BASO x10^3 (test code = 704-7) 0.06 10*3/uL 0.01-0.09 Lab Interpretation (test code = 19653-7) Abnormal [facility] HospitalTroponin [id number] 04:30:03* Test Item Value Reference Range Interpretation Comme nts TROPONIN I (test code = 5325365379) 0.003 ng/mL <=0.034 JAZZMINE (test code = [...] of biotin. Lab Interpretation (test code = 32506-5) Normal [facility] HospitalCOMP Metabolic Panel (40435)2022-12-21 04:17:01* Test Item Value Reference Range Interpretation Comme nts NA (test code = 2943908042) 136 mmol/L 135-145 K (test code = 0340771281) 4.6 mmol/L 3.5-5.0 CL (test code = 1922942375) 101 mmol/L 98-108 CO2 TOTAL (test code = 6406839907) 24 mmol/L 23-31 AGAP (test code = 7294597566) 11 2-16 BUN (test code = 6439773646) 11 mg/dL 7-23 GLUCOSE (test code = 6330905498) 107 mg/dL 70-110 CREATININE (test code = 7662459794) 1.27 mg/dL 0.60-1.25 H TOTAL BILI (test code = 1978532782) 0.5 mg/dL 0.1-1.1 CALCIUM (test code = 1657385221) 9.5 mg/dL 8.6-10.6 T PROTEIN (test code = 0752630935) 8.1 g/dL 6.3-8.2 ALBUMIN (test code = 7865518185) 4.8 g/dL 3.5-5.0 ALK PHOS (test code = 5879201902) 60 U/L 34-122 ALTv (test code = 1742-6) 32 U/L 5-50 AST(SGOT) (test code = 7345272559) 28 U/L 13-40 eGFR (test code = 1654239319) 61.3 mL/min/1.73m2 JAZZMINE (test code = JAZZMINE) Association of [...] or abnormalities in imaging tests). Lab Interpretation (test code = 60974-2) Abnormal [facility] HospitalLipase [id number] 04:16:20* Test Item Value Reference Range Interpretation Comme [facility] LIPASE (test code = 1467038061) 74 U/L 0-220 Lab Interpretation (test cod e = 13231-9) Normal [facility] HospitalCBC with Xxzkglcadygn1904-00-12 04:05:41* Test Item Value Reference Range Interpretation Comme nts WBC (test code = 6690-2) 5.63 See_Comment [Automated messa ge] The system which generated this result transmitted reference range: 4.20 - 10.70 10*3/?L. The reference range was not used to interpret this result as normal/abnormal. RBC (test code = 789-8) 4.92 See_Comment [Automated messa ge] The system which generated this result transmitted reference range: 4.26 - 5.52 10*6/?L. The reference range was not used to interpret this result as normal/abnormal. HGB (test code = 718-7) 16.2 g/dL 12.2-16.4 HCT (test code = 4544-3) 46.8 % 38.4-49.3 MCV (test code = 787-2) 95.1 fL 81.7-95.6 MCH (test code = 785-6) 32.9 pg 26.1-32.7 H MCHC (test code = 786-4) 34.6 g/dL 31.2-35.0 RDW-SD (test code = 39342-4) 43.6 fL 38.5-51.6 RDW-CV (test code = 788-0) 12.4 % 12.1-15.4 PLT (test code = 777-3) 274 See_Comment [Automated messa ge] The system which generated this result transmitted reference range: 150 - 328 10*3/?L. The reference range was not used to interpret this result as normal/abnormal. MPV (test code = 24590-2) 9.8 fL 9.8-13.0 NRBC/100 WBC (test code = 0005080665) 0.0 See_Comment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 Brilinta) who presented with chest pain concerning for UA (continue to have chest pain while in the hospital), plan for TTE to evaluate cardiac structure and function and coronary angiography for further assessment along with continuing ASA and Brilinta for 1 year (patient confirmed being able to pay his co-pay for Brilinta). Troponin elevation is mostly type II MT secondary to uncontrolled HTN working with medical therapy to get it controlled, no BB given bradycardia. In addition, reported syncope in the past, will need 30-day event monitor upon discharge along with follow up with Cardiology after 6 weeks. Medical impression and management recommendations were explained in details and discussed with the patient and his , all questions were answered. Please see the resident's note for additional details. I saw the patient on 03/12/2024. Bell Almonte MD Traffic Representative Department of Internal Medicine Division of Cardiovascular Medicine [facility] Procedure Notes Date/Time Note Provider Source 2024-03-12 17:50:25 Left Heart Cath/Coronary Angiography Andreea Rai Date of Service: 03/12/2024 5:50 PM Attending faculty: Maury Hamilton MD Fellow: Dr Stein Referring Physician: Dr. Almonte Procedures Performed: LHC/Coronary angiogram: CPT 45033 IVUS single vessel: CPT 21364 Indication/Diagnosis: NSTEMI and Hypertensive emergency. Consent: Risks, benefits, alternatives and complications of the procedure discussed with the patient, who understood and agreed to proceed. Aseptic technique: Chlorprep Local Anesthesia: 1% lidocaine without epinephrine Sedation: Moderate Access site: Right radial artery Closure Method: TR band Sterile dressing: yes Complications: none Procedures: After patient identification/verification, the patient was thereafter transferred to the labourers table. The access site was prepped and draped in usual sterile fashion. After administering sedation, time out was done. Under ultrasound guidance, using Seldinger technique, the Right radial artery was accessed and a 6 Fr Slender sheath was introduced into the artery. A5 Fr TIG 4.0 catheter was used to cannulate the LM. Selective coronary angiography was done using several views. A 5 Fr TIG 4.0 was used to cross the AV with the J wire and the catheter was advanced into the LV where selective LVEDP was measured. The catheter was then used to cannulate the RCA and selective coronary angiography was done using multiple views. The attending physician was present throughout the procedure and provided the highest level of supervision. IVUS: We used 6 Uzbek JR4 guide to engage the RCA. We passed a BMW wire into the RCA artery past the lesion. . IVUS imaging showed patent RCA stent with NO evidence of thrombus. Mild ISR. At the end of the procedure, all wires were removed and final angiogram was obtained which showed ALFREDO III flow . TR band was applied after sheath removal Findings: Coronary dominance: right Left main: Large, patent LAD: Large vessel, luminal irregularilies D1: large bifurcating D1, patent D2: Medium sized. patent LCX: Patent OM1: Large OM1, patent OM2: small sized, patent OM3: Small sized, patent RCA: Large dominant vessel, mid patent stent (IVUS indicative of patent stent), distal 30-40% (IVUS indicative non-severe disease) PDA: patent PLB: Patent LVEDP: 9 mmHg Post-Procedure Sedation Addendum Immediately prior to start of sedation, the patient was evaluated and there was no change from the pre-procedure evaluation. I was present and directed medical care. The patient underwent moderate sedation for the procedure. The medications administered were recorded in the MAR; oxygenation, ventilation and circulation were monitored continuously and were recorded in the EMR. I evaluated the patient after the procedure. The patient was evaluated immediately as recovering from sedation. Complications: None Impression: RCA stent patent, mild in stent restenosis. No thrombus confirmed by IVUS LAD and Lcx system non obstructive CAD Normal filling pressure Plan: Monitor on Telemetry Floor ASA 81 mg daily Brilinta 90 mg BID Statin Beta ricardo Aggressive medical management Importance of DAPT adherence discussed with patient and . Continue aggressive risk factor modification Patient counseled extensively on medication compliance, diet and exercise. Godfrey Adhikari MD 03/12/2024 5:50 PM IM-INTERVENTIONAL CARDIOLOGY STAFF [facility]
[2024-08-12] MEDS ORDERED: ASPIRIN EC 81 MG TAB PO ONE (00:38)
[2024-08-12] MEDS ORDERED: ONDANSETRON 4 MG/2 ML VIAL ONE (00:38)
[2024-08-12] MEDS ORDERED: MORPHINE 4 MG/ML SYR ONE (00:39)
[2024-08-12 00:49] LABS: Absolute Eosinophils 0.2 K/uL (0-0.5); Absolute Lymphocytes (CBC) 1.3 K/uL (0.7-4.9); Absolute Monocytes 0.5 K/uL (0.1-1.3); Absolute Neutrophil 4.3 K/uL (1.8-8.0); Basophils % 0.7 % (0-1.3); Eosinophils % 2.5 % (0-4.4); Hematocrit 42.2 % (39.6-49.0); Hemoglobin 14.5 g/dL (13.6-17.9); Lymphocytes % 21.3 % (15.3-44.8); MCH 33.1 pg (27.0-35.0); MCHC 34.3 g/dL (32.0-36.0); MCV 96.7 fL (80-100); MPV 7.9 fL (7.6-11.3); Monocytes % 7.7 % (3.3-12.3); Neutrophils % 67.8 % (41.7-73.7); Nucleated Red Blood Cells % 0.1 % (0-0); Platelets 304 thou/uL (152-406); RBC Red Blood Cell Count 4.37 M/uL (4.33-5.43); Red Cell Distribution Width 13.5 % (12.1-15.2)
[2024-08-12 00:50] LABS: PT Prothrombin Time 11.6 SECONDS (9.4-12.5); Protime INR 1.04
[2024-08-12 01:20] LABS: Anion Gap 9.9 mEq/L (5.0-15.0); Potassium 3.9 mEq/L (3.5-5.1); Troponin High Sensitivity 21.7 pg/mL (<58.9)
--- NOTE | 2024-08-12 02:02 | EDPHYS ---
Physician Documentation [facility] Name: Byron Rai Age: 49 yrs Sex: Male : 1975 Arrival Date: 08/12/2024 Time: 00:10 Bed 18 Private MD: ED Physician Jamal Looney HPI: 08/12 00:26 This 49 yrs old Male presents to ER via Ambulatory with complaints of Chest ec2 Pain. 00:26 Patient arrives today for chest pain, substernal, started this evening. Patient reports ec2 history of ACS, previous cardiac stent, is on Brilinta, aspirin. Chest pain nonexertional. Describes as a pressure. Patient is a daily smoker.. Historical: - Allergies: 00:24 No Known Allergies; lg3 - Home Meds: 00:24 lisinopril 40 mg Oral tablet daily [Active]; Brilinta oral [Active]; lg3 - PMHx: 00:24 Hypercholesterolemia; Hypertensive disorder; Hypothyroidism; lg3 - PSHx: 00:24 pannulectomy (Hypothyroidism); cardiac stent (Hypothyroidism); lg3 - Immunization history:: Adult Immunizations up to date. - Infectious Disease History:: Denies. - Social history:: Smoking status: Reported history of juuling and/or vaping. Patient uses alcohol, occasionally. Patient/guardian denies using street drugs. ROS: 00:26 Constitutional: as per hpi ec2 Exam: 00:26 Constitutional: GEN: NAD Head: atraumatic Eyes: EOMI Ears: External ears are ec2 normal. CV: regular rate LUNGS: no respiratory distress ABD: non-distended SKIN: no evidence of rashes MSK: no evidence of trauma Vital Signs: 00:22 Weight 107.95 kg (R); Height 5 ft. 8 in. (R); lg3 00:35 BP 171 / 107; Pulse 85; Resp 24; Temp 98.1(O); Pulse Ox 98% on R/A; br2 01:27 BP 141 / 88; Pulse 68; Resp 18 S; Pulse Ox 99% on R/A; Pain 7/10; br2 00:22 Body Mass Index 36.19 (107.95 kg, 172.72 cm) lg3 01:27 Pain Scale: Adult br2 MDM: 00:14 Medical Screening Exam initiated ec2 00:26 Data reviewed: vital signs, nurses notes. ED course: Patient arrives today for ec2 evaluation of chest pain. Examination remarkable for hypertensive individual was otherwise with reassuring cardiopulmonary examination. Will obtain lab work, EKG, chest x-ray, treat the patient with morphine. Differential considered includes ACS, other process such as PE, dissection, costochondritis.. 00:34 ED course: EKG independently reviewed and interpreted by me, shows normal sinus rhythm, ec2 rate of 76, no acute ST segment elevations, intervals nonactionable.. 01:59 ED course: Chest x-ray shows no acute intrathoracic process. Given extensive cardiac ec2 history, will admit for cardiac workup.. 02:02 ED course: Discussed admission with patient, patient felt reassured with workup, will ec2 follow-up outpatient. Will discharge home. Return precautions given.. 08/12 00:14 Order name: Basic Metabolic Panel; Complete Time: :36 ec2 08/12 00:14 Order name: CBC with Diff; Complete Time: ec2 08/12 00:14 Order name: NT PRO-BNP; Complete Time: 36 ec2 08/12 00:14 Order name: PT-INR; Complete Time: 01:00 ec2 08/12 00:14 Order name: Troponin HS; Complete Time: 36 ec2 08/12 00:14 Order name: XRAY Chest (1 view) ec2 08/12 00:14 Order name: EKG; Complete Time: 00:14 ec2 08/12 00:14 Order name: Cardiac monitoring; Complete Time: ec2 08/12 00:14 Order name: EKG - Nurse/Tech; Complete Time: ec2 08/12 00:14 Order name: IV Saline Lock; Complete Time: 00:46 ec2 08/12 00:14 Order name: Labs collected and sent; Complete Time: :46 ec2 08/12 00:14 Order name: O2 Per Protocol; Complete Time: ec2 08/12 00:14 Order name: O2 Sat Monitoring; Complete Time: :34 ec2 Administered Medications: 00:46 Drug: morphine IVP or IV 4 mg IVP once over 4 mins Route: IVP; Infused Over: 4 mins; br2 Site: right antecubital; 01:15 Follow up: Response: No adverse reaction br2 00:46 Drug: Ondansetron IVP 4 mg IVP once; over 2 minutes Route: IVP; Site: right antecubital;br2 01:15 Follow up: Response: No adverse reaction br2 00:46 Drug: Aspirin PO Chewable Tablet 324 mg PO once; 81 mg tablets x 4 Route: PO; br2 01:15 Follow up: Response: No adverse reaction br2 Disposition Summary: 08/12/24 02:02 Discharge Ordered Notes: Location: Home ec2 Condition: Stable ec2 Diagnosis - Chest pain, unspecified ec2 Followup: ec2 - With: Private Physician - When: - Reason: Re-evaluation by your physician Discharge Instructions: - Discharge Summary Sheet ec2 - Nonspecific Chest Pain, Adult, [id number] ec2 Forms: - Medication Reconciliation Form ec2 - Antibiotic Education ec2 - Prescription Opioid Use ec2 - Patient Portal Instructions ec2 - Leadership Thank You Letter ec2 Signatures: Dispatcher [employer] Dayana Daley RN RN lg3 Jamal Looney MD MD ec2 Karla Jesus RN RN br2
--- NOTE | 2024-08-12 02:02 | ER ---
Nurse's Notes [facility] Name: Byron Rai Age: 49 yrs Sex: Male : 1975 Arrival Date: 08/12/2024 Time: 00:10 Bed 18 Private MD: Diagnosis: Chest pain, unspecified Presentation: 08/12 00:22 Chief complaint: Patient states: mid sternal chest pain with nausea. onset 1800 lg3 yesterday. Coronavirus screen: Client denies travel out of the [place] in the last 14 days. At this time, the client does not indicate any symptoms associated with coronavirus-19. Ebola Screen: No symptoms or risks identified at this time. Risk Assessment: Do you want to hurt yourself or someone else? Patient reports no desire to harm self or others. Onset of symptoms was August 11, 2024. 00:22 Method Of Arrival: Ambulatory lg3 00:22 Acuity: XOCHILT 3 lg3 00:22 Initial Sepsis Screen: Does the patient meet any 2 criteria? No. Patient's initial br2 sepsis screen is negative. Does the patient have a suspected source of infection? No. Patient's initial sepsis screen is negative. Triage Assessment: 00:24 General: Appears in no apparent distress. uncomfortable, Behavior is cooperative, lg3 anxious. Pain: Complains of pain in chest Pain currently is 9 out of 10 on a pain scale. Also complains of nausea. EENT: No deficits noted. No signs and/or symptoms were reported regarding the EENT system. Neuro: No deficits noted. Davey Agitation-Sedation Scale (RASS): 0 - Alert and Calm Level of Consciousness is awake, alert, obeys commands, Oriented to person, place, time, situation. Cardiovascular: Reports chest pain, nausea, Capillary refill < 3 seconds Clubbing of nail beds is absent JVD is absent Patient's skin is warm and dry. Respiratory: No deficits noted. Airway is patent Respiratory effort is even, unlabored, Respiratory pattern is regular, symmetrical. GI: No deficits noted. Abdomen is round non-distended, Reports nausea. : No signs and/or symptoms were reported regarding the genitourinary system. Derm: No deficits noted. No signs and/or symptoms reported regarding the dermatologic system. Skin is intact, is healthy with good turgor, Skin is dry, Skin is normal, Skin temperature is warm. Musculoskeletal: No deficits noted. No signs and/or symptoms reported regarding the musculoskeletal system. Circulation, motion, and sensation intact. Range of motion: intact in all extremities. Historical: - Allergies: 00:24 No Known Allergies; lg3 - Home Meds: 00:24 lisinopril 40 mg Oral tablet daily [Active]; Brilinta oral [Active]; lg3 - PMHx: 00:24 Hypercholesterolemia; Hypertensive disorder; Hypothyroidism; lg3 - PSHx: 00:24 pannulectomy (Hypothyroidism); cardiac stent (Hypothyroidism); lg3 - Immunization history:: Adult Immunizations up to date. - Infectious Disease History:: Denies. - Social history:: Smoking status: Reported history of juuling and/or vaping. Patient uses alcohol, occasionally. Patient/guardian denies using street drugs. Screenin:22 [facility] ED Fall Risk Assessment (Adult) History of falling in the last 3 months, br2 including since admission No falls in past 3 months (0 pts) Confusion or Disorientation No (0 pts) Impaired Gait No (0 pts) Mobility Assist Device Used No (0 pt) Altered Elimination No (0 pt) Score/Fall Risk Level 0 - 2 = Low Risk Oriented to surroundings. Abuse screen: Denies threats or abuse. Denies injuries from another. Nutritional screening: No deficits noted. Tuberculosis screening: No symptoms or risk factors identified. 01:31 [facility] ED Fall Risk Assessment (Adult) Intoxicated or Sedated. br2 Assessment: 00:22 Reassessment: SEE TRIAGE ASSESSMENT. Pain: Complains of pain in medial aspect of right br2 knee Pain does not radiate. Pain began 1 hour ago. 01:00 Reassessment: No changes from previously documented assessment. Patient and/or family br2 updated on plan of care and expected duration. Pain level reassessed. Patient is alert, oriented x 3, equal unlabored respirations, skin warm/dry/pink. Patient states symptoms have improved. Vital Signs: 00:22 Weight 107.95 kg (R); Height 5 ft. 8 in. (R); lg3 00:35 BP 171 / 107; Pulse 85; Resp 24; Temp 98.1(O); Pulse Ox 98% on R/A; br2 01:27 BP 141 / 88; Pulse 68; Resp 18 S; Pulse Ox 99% on R/A; Pain 7/10; br2 00:22 Body Mass Index 36.19 (107.95 kg, 172.72 cm) lg3 01:27 Pain Scale: Adult br2 ED Course: 00:13 Patient arrived in ED. im 00:13 Jamal Looney MD is Attending Physician. ec2 00:22 Patient has correct armband on for positive identification. Bed in low position. Call br2 light in reach. Side rails up X 1. Provided Education on: PLAN OF CARE. Client placed on continuous cardiac and pulse oximetry monitoring. NIBP monitoring applied. playground monitor on. 00:24 Triage completed. lg3 00:24 Arm band placed on right wrist. lg3 00:34 Karla Jesus, JUDI is Primary Nurse. br2 00:35 Inserted saline lock: 20 gauge in right antecubital area, using aseptic technique. br2 Blood collected. Flushed with 10 mL NS. 00:42 XRAY Chest (1 view) In Process Unspecified. EDMS 00:46 Basic Metabolic Panel Sent. br2 00:46 CBC with Diff Sent. br2 00:46 NT PRO-BNP Sent. br2 00:46 PT-INR Sent. br2 00:46 Troponin HS Sent. br2 02:15 No provider procedures requiring assistance completed. IV discontinued, intact, br2 bleeding controlled, No redness/swelling at site. Pressure dressing applied. Patient maintains SpO2 saturation greater than 95% on room air. Administered Medications: 00:46 Drug: morphine IVP or IV 4 mg IVP once over 4 mins Route: IVP; Infused Over: 4 mins; br2 Site: right antecubital; 01:15 Follow up: Response: No adverse reaction br2 00:46 Drug: Ondansetron IVP 4 mg IVP once; over 2 minutes Route: IVP; Site: right antecubital;br2 01:15 Follow up: Response: No adverse reaction br2 00:46 Drug: Aspirin PO Chewable Tablet 324 mg PO once; 81 mg tablets x 4 Route: PO; br2 01:15 Follow up: Response: No adverse reaction br2 Medication: 00:46 VIS not applicable for this client. br2 Outcome: 02:02 Discharge ordered by . ec2 02:15 Discharged to home ambulatory, br2 02:15 Condition: improved 02:15 Discharge instructions given to patient, Instructed on discharge instructions, follow up and referral plans. Demonstrated understanding of instructions, follow-up care, 02:16 Patient left the ED. br2 Signatures: Dispatcher [employer] Dayana Daley RN RN lg3 Zahira Marquez Edwin, MD MD ec2 Karla Jesus RN RN br2
--- NOTE | 2024-08-12 06:52 | RAD REPORT ---
EXAM: XR Chest, 1 View CLINICAL HISTORY: The patient is 49 years old and is Male; CHEST PAIN TECHNIQUE: Frontal view of the chest. COMPARISON: No relevant prior studies available. FINDINGS: LUNGS: Unremarkable. No consolidation. PLEURAL SPACE: Unremarkable. No pneumothorax. HEART: Unremarkable. No cardiomegaly. MEDIASTINUM: Unremarkable. Normal mediastinal contour. BONES/JOINTS: Unremarkable. No acute fracture. UPPER ABDOMEN: Unremarkable as visualized. IMPRESSION: No acute cardiopulmonary process. Electronically signed by: Analilia Marrero MD 08/12/2024 12:[address] [facility] Due to temporary technical issues with the PACS/[employer] reporting system, reports are being cinthya d by the in-house radiologist without review as a courtesy to ensure prompt reporting the interpreting radiologist is fully responsible for the content of the report. Transcribed Date/Time: 08/12/2024 6:52 AM
[2024-08-12 07:27] VITALS: BP 171/107; TEMP 98.1; O2SAT 98
--- NOTE | 2024-08-12 11:09 | EKG ---
Test Date: 2024-08-12 Test Time: 00:27:27 Stain Wiper: AF MEASUREMENT RESULTS: Intervals: Rate: 76 IN: 192 QRSD: 82 QT: 382 QTc: 429 [place]: P: 29 IN: 192 QRS: -55 T: 43 INTERPRETIVE STATEMENTS: Normal sinus rhythm Left anterior fascicular block Abnormal ECG Compared to ECG 02/13/2024 11:11:56 Left ventricular hypertrophy no longer present Myocardial infarct finding no longer present Electronically Signed On 08-12-24 11:08:06 DIRECTOR OF [employer]OVERNMENT SALES by Grey Magaña
== END 2024-08-12 02:16 | disposition home or self-care (01) ==
LOC: ER 00:10
DX: R07.9 Chest pain, unspecified (principal); E78.00 Pure hypercholesterolemia, unspecified; I10 Essential (primary) hypertension; E03.9 Hypothyroidism, unspecified; F17.290 Nicotine dependence, other tobacco product, uncomplicated
CPT/HCPCS: 93005; 85025; 80048; 36415; 85610; 84484; 83880; 71045; 96375; 96374; 99285; J2405

== ENCOUNTER 2024-08-12 21:39 | Emergency (ER) | payer OTHER ==
--- OUTSIDE RECORDS SUMMARY | 2024-08-12 21:45 | XMS REPORT | Continuity of Care Document ---
Author Name Unknown Address [address] [facility] [address] [place] [address] [facility] Address [address] [facility] [place] [address] Care Team Providers Care Employee Relations Director Name Role Phone Kenneth Rai Primary Care Physician [phone] JOSSIE IGLESIAS Attending Clinician Unavailab lety RaiLuis FelipeKenneth A Attending Clinician [phone] Gage DUBON, Bell Ortega Attending Clinician + [phone] Artem Alonso MD Attending Clinician [phone] Doctor Unassigned, [place] Attending Clinician U navailable BELL ALMONTE Attending Clinician Luis Rose MD Attending Clinician [phone] Bell Almonte MD Attending Clinician + [phone] Maury Hamilton MD Attending Clinician [phone] LIDIA FERNANDEZ Attending Clinician Unavailable LIDIA FERNANDEZ Attending Clinician Unavailable MUKUND LUIS Attending Clinician Unavailable LAB47 Attending Clinician Unavailable LAB90 Attending Clinician Unavailable MD CLINT Attending Clinician Unavailab David Hercules MD Attending Clinician [phone] RITIKA NANCE Attending Clinician Unavaila Ritika Guerrero Attending Clinician [phone] ARIES SALAZAR Attending Clinician Unavail Aries Wasserman MD Attending Clinician [phone] SHANNON TATE Attending Clinician Unavailable Shannon Tate MD Attending Clinician [phone] JIMMY HERNANDEZ Attending Clinician Unavailable JIMMY HERNANDEZ Attending Clinician Unavailable Doctor Unassigned, [place] Attending Clinician U LUIS Broussard Attending Clinician Unavailable BELL ALMONTE Admitting Clinician Bell Cardozo MD Admitting Clinician + [phone] RITIKA NANCE Admitting Clinician Unavaila ARIES Concepcion Admitting Clinician Unavail SHANNON Poe Admitting Clinician Unavailable Payers Payer Name Policy Type Policy Number Effective Date Expirati on Date Source AETNA [facility] SILVER S HMO ON/OFF 9 [id number] 2023 00:00:00 [employer] 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 [id number] 2022 00:00:00 Problems Condition Name Condition Details Condition Category Status Onset Date Resolution Date Last Treatment Date Treating Clinician Comments Source Coronary artery disease involving [place] coronary artery of [place] heart without angina pectoris Coronary artery disease involving [place] coronary artery of [place] heart without angina pectoris Disease Active 03-29 00:00: 00 [facility] S/P right coronary artery (RCA) stent placement S/P right coronary artery (RCA) stent placement Disease Active 03-29 00:00: 00 [facility] Chest pain, unspecifie d type Chest pain, unspecifie d type Disease Active 03-11 00:00: 00 [facility] NSTEMI (non-ST elevated myocardial infarction ) NSTEMI (non-ST elevated myocardial infarction ) Disease Active 03-11 00:00: 00 [facility] Well adult exam Well adult exam Disease Active 2022-08 00:00: 00 Josie Seybold - Externa l Hypothyroi dism Hypothyroi dism Disease Active 2022-08 00:00: 00 Josie Seybold - Externa l Obesity (BMI 30-39.9) Obesity (BMI 30-39.9) Disease Active 2022-08 00:00: 00 Josie Seybold - Externa l Shortness of breath Shortness of breath Disease Active 02-23 00:00: 00 [facility] Mixed hyperlipid emia Mixed hyperlipid emia Disease Active 02-23 00:00: 00 [facility] Essential hypertensi on Essential hypertensi on Disease Active 2017-08 00:00: 00 [facility] Drug abuse Drug abuse Disease Active 2017-08 00:00: 00 [facility] Family history of early CAD Family history of early CAD Disease Active 2017-08 00:00: 00 [facility] Obesity (BMI 30-39.9) Obesity (BMI 30-39.9) Disease Active 2017-08 00:00: 00 [facility] Chest pain Chest pain Disease Active 2017-08 00:00: 00 [facility] Allergies, Adverse Reactions, Alerts Allergy Name Allergy Type Status Severity Reaction(s) Onset Date Inactive Date Treating Clinician Comments Source CODEINE DRUG INGREDI Active Unknown-Cmnt 01-21 00:00: 00 [facility] Codeine Propensi ty to adverse reaction s Active Other 01-21 00:00: 00 constipat ion Josie Seybold - Externa l HYDROCOD ONE DRUG INGREDI Active Other-Cmnt 2017-08 00:00: 00 [facility] Hydrocod one Propensi ty to adverse reaction s Active Other 2017-08 00:00: 00 Constipat ion Josie Seybold - Externa l Social History Social Habit Start Date Stop Date Quantity Comments Source Gender identity [facility] History of tobacco use Snuff User [facility] Sexual orientation K mirta Han - External Alcoholic beverage intake 2024-03-29 00:00:00 2024-03-29 00:00:00 Current drinker of alcohol (finding) [facility] Tobacco use and exposure 2024-03-11 00:00:00 2024-03-11 00:00:00 User of smokeless tobacco [facility] Alcohol intake 2023-09-22 00:00:00 2023-09-22 00:00:00 Current drinker of alcohol (finding) Josie Han - External Alcohol Comment 2023-08-02 00:00:00 2023-08-02 00:00:00 socially Josie Han - External History of Social function 2023-06-14 00:00:00 2023-06-14 00:00:00 Josie Han - External Exposure to SARS-CoV-2 (event) 2022-12-10 00:00:00 2022-12-20 22:39:00 Not sure [facility] Sex Assigned At 1975 00:00:00 1975 00:00:00 Josie Han - External Smoking Status Start Date Stop Date Source Ex-smoker 2024-03-11 00:00:00 2024-03-11 [facility] 2023-06-14 00:00:00 Josie Han - External Medications Ordered Medication Name Filled Medication Name Start Date Stop Date Current Medication? Ordering Clinician Indication Dosage Frequency Signature (SIG) Comments Components Source losartan 50 mg tablet 03-29 00:00: 00 03-30 04:59 :00 No 50mg Take 1 tablet by mouth in the morning. [facility] tiZANidine 2 mg tablet 03-19 00:00: 00 Yes 2mg Take 1 tablet by mouth. [facility] SERTraline 50 mg tablet 03-19 00:00: 00 03-20 04:59 :00 No 50mg Take 1 tablet by mouth. [facility] nitroglycer in 0.4 mg sublingual tablet 03-15 00:00: [id number] 1 tablet under the tongue every 5 (five) minutes as needed for Chest pain. [facility] aspirin 81 mg chewable tablet 03-14 00:00: 00 Yes [id number] 81mg Take 1 tablet by mouth in the morning. [facility] losartan 25 mg tablet 03-14 00:00: 00 03-29 00:00 :00 No [id number] 25mg Take 1 tablet by mouth in the morning. [facility] ondansetron (ZOFRAN) tablet 4 mg 03-13 14:30: 00 03-13 13:48 :00 No 4mg 4 mg, Oral, ONCE, 1 dose, On Mon03/13/24 at 0930, Routine [facility] morpHINE injection 2 mg 03-13 02:32: 03 Yes 2mg 2 mg, Slow IV Push, Q4HPRN, Starting on Mon03/12/24 at 2132, Until Discontinu ed, Routine, Chest pain [facility] atorvastati n (LIPITOR) tablet 40 mg 03-13 02:00: 00 Yes 40mg 40 mg, Oral, QHS, First dose on Mon03/12/24 at 2100, Until Discontinu ed, Routine [facility] atorvastati n 40 mg tablet 03-13 00:00: 00 Yes [id number] 40mg Take 1 tablet by mouth at bedtime. [facility] levothyroxi ne 125 mcg tablet 03-13 00:00: 00 Yes [id number] 125ug Take 1 tablet by mouth every morning. [facility] nitroglycer in 0.3 mg sublingual tablet 03-13 00:00: [id number] 1 tablet under the tongue every 5 (five) minutes as needed for Chest pain. [facility] ticagrelor 90 mg tablet 03-13 00:00: 00 03-13 00:00 :00 No [id number] 90mg Take 1 tablet by mouth in the morning and 1 tablet in the evening. [facility] iopamidol (ISOVUE-370 ) injection 03-12 22:55: 16 03-12 23:01 :38 No ONCE INTRA PROCEDURE, Starting on Mon03/12/24 at 1755, Until Mon03/12/24 at 1801, Routine, CV Intraproce dure [facility] nitroglycer in (TRIDIL) 2 mg in 10 mL D5W for Cardiac Cath 03-12 22:06: 12 03-12 22:57 :33 No ONCE INTRA PROCEDURE, Starting on Mon03/12/24 at 1706, Until Mon03/12/24 at 1757, Routine, CV Intraproce dure [facility] heparin 1,000 unit/mL injection 03-12 22:05: 57 03-12 22:57 :33 No ONCE INTRA PROCEDURE, Starting on Mon03/12/24 at 1705, Until Mon03/12/24 at 1757, Routine, CV Intraproce dure [facility] lidocaine 1% (PF) (XYLOCAINE) injection 03-12 22:02: 17 03-12 22:57 :33 No ONCE INTRA PROCEDURE, Starting on Mon03/12/24 at 1702, Until Mon03/12/24 at 1757, Routine, CV Intraproce dure [facility] FENTanyl PF (SUBLIMAZE (PF)) injection 03-12 22:02: 02 03-12 22:57 :33 No ONCE INTRA PROCEDURE, Starting on Mon03/12/24 at 1702, Until Mon03/12/24 at 1757, Routine, CV Intraproce dure [facility] midazolam (VERSED) injection 03-12 22:01: 48 03-12 22:57 :33 No ONCE INTRA PROCEDURE, Starting on Mon03/12/24 at 1701, Until Mon03/12/24 at 1757, Routine, CV Intraproce dure [facility] nitroglycer in (TRANSDERM- NITRO) 0.2 mg/hr patch 1 Patch 03-12 14:00: 00 Yes 1{patch } 1 Patch, Transderma l (Apply To Skin), Administer over 12 Hours, DAILY, First dose on Mon03/12/24 at 0900, Until Discontinu ed, Routine [facility] losartan (COZAAR) tablet 25 mg 03-12 14:00: 00 Yes 25mg 25 mg, Oral, DAILY, First dose on Mon03/12/24 at 0900, Until Discontinu ed, Routine [facility] aspirin chewable tablet 81 mg 03-12 14:00: 00 Yes 81mg 81 mg, Oral, DAILY, First dose on Mon03/12/24 at 0900, Until Discontinu ed, Routine [facility] sennosides- docusate sodium (SENOKOT-S) 8.6-50 mg per tablet 1 tablet 03-12 14:00: 00 Yes 1{tbl} 1 tablet, Oral, DAILY, First dose on Mon03/12/24 at 0900, Until Discontinu ed, Routine [facility] perflutren protein-A microsphr (OPTISON) injection 3 mL 03-12 13:45: 00 03-12 13:30 :00 No [id number] 3mL 3 mL, IV Push, ONCE, 1 dose, On Mon03/12/24 at 0845, Routine [facility] ticagrelor (BRILINTA) tablet 90 mg 03-12 13:00: 00 Yes 90mg 90 mg, Oral, BID, First dose on Mon03/12/24 at 0800, Until Discontinu ed, Routine [facility] levothyroxi ne (SYNTHROID) tablet 125 mcg 03-12 11:00: 00 Yes 125ug 125 mcg, Oral, QAM-0600, First dose on Mon03/12/24 at 0600, Until Discontinu ed, [facility] ([facility] 2 mg 03-12 03:16: 22 03-13 02:32 :20 No 2mg 2 mg, Slow IV Push, Q4HPRN, Starting on Mon03/11/24 at 2216, Until Mon03/12/24 at 2132, Routine, Pain (scale 7-10), Chest pain [facility] acetaminoph en (TYLENOL) tablet 650 mg 03-12 01:23: 49 Yes 650mg 650 mg, Oral, Q6HPRN, Starting on Mon03/11/24 at 2023, Until Discontinu ed, Routine, Pain (scale 1-3) [facility] FENTanyl PF (SUBLIMAZE (PF)) injection 50 mcg 03-11 23:30: 00 03-11 22:28 :00 No 50ug 50 mcg, Slow IV Push, ONCE, 1 dose, On Mon03/11/24 at 1830, [facility] ondansetron (ZOFRAN (PF)) injection 4 mg 03-11 23:30: 00 03-11 22:53 :00 No 4mg 4 mg, Slow IV Push, ONCE, 1 dose, On Mon03/11/24 at 1830, [facility] HEPARIN SODIUM (PORCINE) 1,000 UNIT/ML BOLUS ACS ORDER SET 03-11 22:30: 00 03-11 22:29 :00 No 4000U 4,000 Units, IV Push, ONCE, 1 dose, On Mon03/11/24 at 1730, [facility] heparin 25,000 Units/250 mL (Premixed Bag) [...] ant therapy. Range, Dosing and Testing: FOR [facility], AND [facility] ONLY - aPTT < 35: Bolus 5000 [...] once therapeuti c levels are reached. FOR [facility] ONLY - aPTT < 40: [...] INITIAL BOLUS OR INITIAL INFUSION RATE. [facility] aspirin chewable tablet 243 mg 03-11 20:00: 00 03-11 20:40 :00 No 243mg 243 mg, Oral, ONCE, 1 dose, On Mon03/11/24 at 1500, [facility] ticagrelor (BRILINTA) tablet 180 mg 03-11 20:00: 00 03-11 20:40 :00 No 180mg 180 mg, Oral, ONCE, 1 dose, On Mon03/11/24 at 1500, [facility] LISINOPRIL ORAL 03-11 19:04: 23 03-13 00:00 :00 No 20mg Take by mouth. [facility] famotidine (PEPCID AC) tablet 20 mg 01-18 18:00: 00 01-18 18:03 :00 No 20mg 20 mg, Oral, ONCE, 1 dose, On Mon01/19/24 at 1300, [facility] diphenhydrA MINE (BENADRYL) tablet 25 mg 01-18 18:00: 00 01-18 18:03 :00 No 25mg 25 mg, Oral, ONCE, 1 dose, On Mon01/19/24 at 1300, [facility] dexamethaso ne sod phos PF injection 10 mg 01-18 18:00: 00 01-18 18:03 :00 No 10mg 10 mg, Oral, ONCE, 1 dose, On Mon01/19/24 at 1300, 1 mL [facility] methylPREDN ISolone 4 mg tablets 01-18 00:00: 00 03-13 00:00 :00 No [id number] Take by mouth SEE-INSTRU CTIONS. follow package directions [facility] Lisinopril 20 MG oral Tablet 09-22 10:01: 49 09-22 00:00 :00 No 20mg Take 1 tablet (20 mg total) by mouth daily. Josie moe Atorvastati n Calcium 20 MG oral Tablet 09-22 00:00: 00 Yes [id number] 20mg Take 1 tablet (20 mg total) by mouth daily. Josie moe Levothyroxi ne Sodium 125 MCG oral Tablet 09-22 00:00: 00 Yes [id number] 125ug Take 1 tablet (125 mcg total) by mouth daily. Josie moe Lisinopril 20 MG oral Tablet 09-22 00:00: 00 Yes [id number] 20mg Take 1 tablet (20 mg total) by mouth daily. Josie moe Gabapentin 100 MG oral Capsule 09-22 00:00: 00 Yes [id number] 100mg Take 1 capsule (100 mg total) by mouth 3 times daily. Josie moe Cyclobenzap rine HCl 5 MG oral Tablet 09-22 00:00: 00 Yes [id number] 10mg QD Take 2 tablets (10 mg total) by mouth nightly as needed for muscle spasms. Josie moe [place]-3 Fatty Acids ([place]-3 Fish Oil) 1000 MG oral Capsule 2022-08 00:00: 00 Yes [id number] 1{capsu le} Take 1 capsule by mouth 3 to 4 times daily. Josie moe Fenofibrate 145 MG oral Tablet 2022-08 00:00: 00 Yes [id number] 145mg Take 1 tablet (145 mg total) by mouth daily. Josie moe Atorvastati n Calcium 20 MG oral Tablet 2022-08 00:00: 00 09-22 00:00 :00 No [id number] 20mg Take 1 tablet (20 mg total) by mouth daily. Josie moe Lisinopril 20 MG oral Tablet 2022-08 15:21: 15 Yes 20mg Take 1 tablet (20 mg total) by mouth daily. Josie moe Pantoprazol e Sodium 40 MG oral Tablet Delayed Response 2022-08 00:00: 00 Yes [id number] 40mg Take 1 tablet (40 mg total) [...] 2022-08 00:00: 00 09-22 00:00 :00 No [id number] 125ug Take 1 tablet (125 mcg total) by mouth daily. Josie moe Azithromyci n 250 MG oral Tablet 2022-08 00:00: 00 06-26 05:59 :00 No [id number] Take 2 tablets by mouth on day 1 then 1 tablet by mouth daily for 4 days thereafter .. Josie moe LORazepam (ATIVAN) injection 1 mg 02-11 21:15: 00 02-11 21:19 :00 No 1mg 1 mg, Slow IV Push, ONCE, 1 dose, On Mon02/11/23 at 1615, [facility] hydralAZINE (APRESOLINE ) injection 10 mg 02-11 21:00: 00 02-11 21:03 :00 No 10mg 10 mg, Slow IV Push, ONCE, 1 dose, On Mon02/11/23 at 1600, [facility] lactulose (CEPHULAC) solution 30 mL 12-21 05:00: 00 12-21 04:57 :00 No 30mL 30 mL, Oral, ONCE, 1 dose, On Mon12/21/22 at 0000, [facility] NaCl 0.9% (NS) bolus infusion 1,000 mL 12-21 04:00: 00 12-21 06:08 :00 No 1000mL at 999 mL/hr, 1,000 mL, IV Infusion, ONCE, 1 dose, On Mon12/20/22 at 2300, STAT [facility] furosemide (LASIX) injection 40 mg 12-21 04:00: 00 12-21 04:20 :00 No 40mg 40 mg, IV Push, ONCE, 1 dose, On Mon12/20/22 at 2300, [facility] ipratropium -albuteroL (DUONEB) 0.5 mg-3 mg(2.5 mg base)/3 mL nebulizer solution 3 mL 12-21 04:00: 00 12-21 04:15 :00 No 3mL 3 mL, Inhalation , ONCE, 1 dose, On Mon12/20/22 at 2300, [facility] methylpredn isolone sod succ (SOLU-MEDRO L) injection 125 mg 12-21 04:00: 00 12-21 04:20 :00 No 125mg 125 mg, IV Piggyback, ONCE, 1 dose, On Mon12/20/22 at 2300, STAT [facility] aspirin tablet 325 mg 12-21 03:45: 00 12-21 03:50 :00 No 325mg 325 mg, Oral, ONCE, 1 dose, On Mon12/20/22 at 2245, STAT [facility] nisoldipine (SULAR ORAL) 12-21 00:44: 33 Yes 20mg Take 20 mg by mouth daily. [facility] albuterol 90 mcg/actuati on inhaler 12-21 00:00: 00 Yes [id number] 2{puff} Inhale 2 Puffs every 4 (four) hours as needed for Wheezing or Shortness of Breath. [facility] polyethylen e glycol 3350 (MIRALAX) 17 gram powder 12-21 00:00: 00 03-13 00:00 :00 No [id number] 1{packe t} Take 1 Packet by mouth every 2 (two) hours as needed for Constipati on for up to 12 doses. [facility] ondansetron 4 mg disintegrat ing tablet 12-21 00:00: 00 03-13 00:00 :00 No [id number] 4mg Take 1 tablet by mouth every 8 (eight) hours as needed for Nausea and Vomiting (N/V) for up to 10 doses. [facility] predniSONE 20 mg tablet 5-10 00:00: 00 12-24 04:59 :00 No [id number] 20mg Take 1 tablet by mouth in the morning and 1 tablet in the evening. Do all this for 2 days. [facility] glycerin/mi neral oil, AGLO ENEMA, Enem 5-10 00:00: 00 12-22 04:59 :00 No [id number] 225mL Insert 225 mL into rectum once now for 1 dose. [facility] FENTanyl PF (SUBLIMAZE (PF)) injection 50 mcg 09-28 08:45: 00 09-28 08:07 :00 No 50ug 50 mcg, Slow IV Push, ONCE, 1 dose, On Mon09/28/22 at 0245, Routine [facility] iopamidol (ISOVUE 370-500 mL) injection 100 mL 09-28 07:45: 00 09-28 07:45 :00 No [id number] 100mL 100 mL, Intravenou s, ONCE, 1 dose, On Mon09/28/22 at 0145, Routine [facility] NaCl 0.9% (NS) IV infusion 1,000 mL 09-28 06:45: 00 Yes 1000mL at 999 mL/hr, Intravenou s, CONTINUOUS , Starting on Mon09/28/22 at 0045, Until Discontinu ed, Routine [facility] ketorolac (TORADOL) injection 30 mg 09-28 06:45: 00 09-28 05:54 :00 No 30mg 30 mg, Slow IV Push, ONCE, 1 dose, On Mon09/28/22 at 0045, Routine [facility] dicyclomine 20 mg tablet 09-28 00:00: 00 03-29 00:00 :00 No [id number] 20mg Take 1 tablet by mouth every 6 (six) hours as needed for Abdominal pain. [facility] ondansetron (ZOFRAN) 4 mg tablet 09-28 00:00: 00 03-13 00:00 :00 No [id number] 4mg Take 1 tablet by mouth every 8 (eight) hours as needed for Nausea and Vomiting (N/V). [facility] pantoprazol e (PROTONIX) 40 mg EC tablet 2-15 00:00: 00 03-13 00:00 :00 No [id number] 40mg Take 1 tablet by mouth in the morning. [facility] gentamicin (GENOPTIC) 0.3 % ophthalmic drops 2 Drop 2021-08 17:00: 00 06-09 17:03 :00 No 2[drp] 2 Drop, Left Eye, ONCE, 1 dose, On [place] 06/09/22 at 1200, [facility] tetracaine (PONTOCAINE ) 0.5 % ophthalmic drops 2 Drop 2021-08 15:36: 00 06-09 15:45 :00 No 2[drp] 2 Drop, Left Eye, ONCE, 1 dose, On [place] 06/09/22 at 1045, Routine [facility] LISINOPRIL ORAL 2021-08 09:32: 12 Yes Take by mouth. [facility] gentamicin 0.3 % ophthalmic drops 2021-08 00:00: 00 06-15 04:59 :00 No [id number] 1[drp] Place 1 Drop in left eye every 1 (one) hour for 5 days. [facility] ketorolac 0.4 % ophthalmic solution 2021-08 00:00: 00 06-13 04:59 :00 No [id number] 1[drp] Place 1 Drop in left eye 4 (four) times daily for 3 days. [facility] ketorolac (TORADOL) injection 30 mg 01-09 03:45: 00 01-09 02:44 :00 No 30mg 30 mg, Slow IV Push, ONCE, 1 dose, [place] 01/09/20 at 2245, Routine
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 [facility] nisoldipine (SULAR ORAL) 2017-08 15:32: 34 Yes 20mg Take 20 mg by mouth daily. [facility] Immunizations Ordered Immunization Name Filled Immunization Name Date Status Comments Source Influenza Virus Vaccine Quad .5 mL IM 6+ MO 2018-07-17 00:00:00 Completed [facility] Influenza Virus Vaccine Quad .5 mL IM 6+ MO 2018-07-17 00:00:00 Completed [facility] Influenza Virus Vaccine Quad .5 mL IM 6+ MO 2018-07-17 00:00:00 Completed [facility] Influenza Virus Vaccine Quad .5 mL IM 6+ MO 2018-07-17 00:00:00 Completed [facility] Influenza Virus Vaccine Quad .5 mL IM 6+ MO 2018-07-17 00:00:00 Completed [facility] Influenza Virus Vaccine Quad .5 mL IM 6+ MO 2018-07-17 00:00:00 Completed [facility] Influenza Virus Vaccine Quad .5 mL IM 6+ MO 2018-07-17 00:00:00 Completed [facility] Influenza Virus Vaccine Quad .5 mL IM 6+ MO 2018-07-17 00:00:00 Completed [facility] Influenza Virus Vaccine Quad .5 mL IM 6+ MO (FLUZONE/FLULAVAL/F LUARIX) 2018-07-17 00:00:00 Completed [facility] Influenza Virus Vaccine Quad .5 mL IM 6+ MO (FLUZONE/FLULAVAL/F LUARIX) 2018-07-17 00:00:00 Completed [facility] Influenza Virus Vaccine Quad .5 mL IM 6+ MO 2018-07-17 00:00:00 Completed [facility] Influenza Virus Vaccine, No Preserv, age 6 months and up Unknown Completed Josie Seybold - External Influenza Virus Vaccine, No Preserv, age 6 months and up Unknown Completed Josie Seybold - External Influenza Virus Vaccine, No Preserv, age 6 months and up Unknown Completed Josie Seybold - External Influenza Virus Vaccine Quad .5 mL IM 6+ MO (FLUZONE/FLULAVAL/F LUARIX) Unknown Completed [facility] Influenza Virus Vaccine Quad .5 mL IM 6+ MO (FLUZONE/FLULAVAL/F LUARIX) Unknown Completed [facility] Influenza Virus Vaccine Quad .5 mL IM 6+ MO (FLUZONE/FLULAVAL/F LUARIX) Unknown Completed [facility] Influenza Virus Vaccine Quad .5 mL IM 6+ MO (FLUZONE/FLULAVAL/F LUARIX) Unknown Completed [facility] Influenza Virus Vaccine Quad .5 mL IM 6+ MO (FLUZONE/FLULAVAL/F LUARIX) Unknown Completed [facility] Influenza Virus Vaccine Quad .5 mL IM 6+ MO (FLUZONE/FLULAVAL/F LUARIX) Unknown Completed [facility] Vital Signs Vital Name Observation Time Observation Value Comments S ource Systolic blood pressure 2024-03-29 20:34:00 138 mm[Hg] [facility] Diastolic blood pressure 2024-03-29 20:34:00 83 mm[Hg] [facility] Heart rate 2024-03-29 20:34:00 74 /min [facility] Respiratory rate 2024-03-29 20:34:00 16 /min [facility] Body height 2024-03-29 20:34:00 172.7 cm [facility] Body weight 2024-03-29 20:34:00 109.272 kg [facility] BMI 2024-03-29 20:34:00 36.63 kg/m2 [facility] Oxygen saturation in Arterial blood by Pulse oximetry 2024-03-29 20:34:00 97 /min [facility] Systolic blood pressure 2024-03-13 20:41:00 117 mm[Hg] [facility] Diastolic blood pressure 2024-03-13 20:41:00 84 mm[Hg] [facility] Heart rate 2024-03-13 20:41:00 82 /min [facility] Body temperature 2024-03-13 20:41:00 36.78 Louise [facility] Respiratory rate 2024-03-13 20:41:00 20 /min [facility] Oxygen saturation in Arterial blood by Pulse oximetry 2024-03-13 20:41:00 95 /min [facility] Body weight 2024-03-13 09:17:00 112.974 kg [facility] BMI 2024-03-13 09:17:00 37.87 kg/m2 [facility] Body height 2024-03-11 18:51:00 172.7 cm [facility] Systolic blood pressure 2024-03-12 16:48:00 128 mm[Hg] [facility] Diastolic blood pressure 2024-03-12 16:48:00 74 mm[Hg] [facility] Heart rate 2024-03-12 16:48:00 70 /min [facility] Body temperature 2024-03-12 16:48:00 36.5 Louise [facility] Respiratory rate 2024-03-12 16:48:00 20 /min [facility] Oxygen saturation in Arterial blood by Pulse oximetry 2024-03-12 16:48:00 95 /min [facility] Body weight 2024-03-12 09:00:00 113.354 kg [facility] BMI 2024-03-12 09:00:00 37.87 kg/m2 [facility] Body height 2024-03-11 18:51:00 172.7 cm [facility] Systolic blood pressure 2024-01-19 17:45:00 170 mm[Hg] [facility] Diastolic blood pressure 2024-01-19 17:45:00 101 mm[Hg] [facility] Heart rate 2024-01-19 17:45:00 72 /min Un[facility] Body temperature 2024-01-19 17:45:00 36.72 Louise [facility] Respiratory rate 2024-01-19 17:45:00 16 /min [facility] Body height 2024-01-19 17:45:00 172.7 cm Univ [facility] Body weight 2024-01-19 17:45:00 107.956 kg [facility] BMI 2024-01-19 17:45:00 36.19 kg/m2 [facility] Oxygen saturation in Arterial blood by Pulse oximetry 2024-01-19 17:45:00 98 /min [facility] Systolic blood pressure 2023-09-22 15:22:00 154 [...] Body weight 2023-06-20 22:42:00 111.642 kg Deloris reed Seybold - External BMI 2023-06-20 22:42:00 37.42 kg/m2 Deloris Han - External Oxygen saturation in Arterial blood by Pulse oximetry 2023-06-20 22:42:00 97 /min Josie dougherty - External Systolic blood pressure 2023-02-11 22:30:00 133 mm[Hg] [facility] Diastolic blood pressure 2023-02-11 22:30:00 84 mm[Hg] [facility] Heart rate 2023-02-11 22:30:00 70 /min [facility] Respiratory rate 2023-02-11 22:30:00 16 /min [facility] Oxygen saturation in Arterial blood by Pulse oximetry 2023-02-11 22:30:00 97 /min [facility] Body temperature 2023-02-11 20:36:00 37.11 Louise [facility] Body height 2023-02-11 20:36:00 172.7 cm [facility] Body weight 2023-02-11 20:36:00 101.152 kg [facility] BMI 2023-02-11 20:36:00 33.91 kg/m2 [facility] Systolic blood pressure 2022-12-21 06:00:00 154 mm[Hg] [facility] Diastolic blood pressure 2022-12-21 06:00:00 93 mm[Hg] [facility] Heart rate 2022-12-21 06:00:00 71 /min [facility] Respiratory rate 2022-12-21 06:00:00 18 /min [facility] Oxygen saturation in Arterial blood by Pulse oximetry 2022-12-21 06:00:00 97 /min [facility] Body temperature 2022-12-21 03:40:00 36.72 Louise [facility] Body height 2022-12-21 03:40:00 172.7 cm [facility] Body weight 2022-12-21 03:40:00 99.791 kg [facility] BMI 2022-12-21 03:40:00 33.45 kg/m2 [facility] Systolic blood pressure 2022-09-28 08:07:00 130 mm[Hg] [facility] Diastolic blood pressure 2022-09-28 08:07:00 83 mm[Hg] [facility] Heart rate 2022-09-28 08:07:00 67 /min [facility] Respiratory rate 2022-09-28 08:07:00 17 /min [facility] Oxygen saturation in Arterial blood by Pulse oximetry 2022-09-28 08:07:00 99 /min [facility] Body temperature 2022-09-28 04:45:00 36.61 Louise [facility] Body height 2022-09-28 04:45:00 172.7 cm [facility] Body weight 2022-09-28 04:45:00 106.595 kg [facility] BMI 2022-09-28 04:45:00 35.73 kg/m2 [facility] Systolic blood pressure 2022-06-09 14:16:00 157 mm[Hg] [facility] Diastolic blood pressure 2022-06-09 14:16:00 88 mm[Hg] [facility] Heart rate 2022-06-09 14:16:00 84 /min [facility] Body temperature 2022-06-09 14:16:00 36.94 Louise [facility] Respiratory rate 2022-06-09 14:16:00 18 /min [facility] Body height 2022-06-09 14:16:00 172.7 cm [facility] 2022-06-09 14:16:00 106.595 kg [facility] BMI 2022-06-09 14:16:00 35.73 kg/m2 [facility] Oxygen saturation in Arterial blood by Pulse oximetry 2022-06-09 14:16:00 97 /min [facility] Heart rate 2020-01-24 03:42:11 69 /min [facility] Body temperature 2020-01-24 03:42:11 36.44 Louise [facility] Respiratory rate 2020-01-24 03:42:11 20 /min [facility] Systolic blood pressure 2020-01-24 03:40:00 154 mm[Hg] [facility] Diastolic blood pressure 2020-01-24 03:40:00 98 mm[Hg] [facility] Body height 2020-01-24 03:40:00 170.2 cm [facility] Body weight 2020-01-24 03:40:00 106.595 kg [facility] BMI 2020-01-24 03:40:00 36.81 kg/m2 [facility] Systolic blood pressure 2020-01-22 20:58:22 171 mm[Hg] [facility] Diastolic blood pressure 2020-01-22 20:58:22 105 mm[Hg] [facility] Body temperature 2020-01-22 20:58:22 36.44 Louise [facility] Respiratory rate 2020-01-22 20:58:22 20 /min [facility] Heart rate 2020-01-22 20:52:00 103 /min [facility] Body height 2020-01-22 20:52:00 170.2 cm [facility] Body weight 2020-01-22 20:52:00 104.327 kg [facility] BMI 2020-01-22 20:52:00 36.02 kg/m2 [facility] Oxygen saturation in Arterial blood by Pulse oximetry 2020-01-22 20:52:00 98 /min [facility] Systolic blood pressure 2020-01-10 02:30:00 154 mm[Hg] [facility] Diastolic blood pressure 2020-01-10 02:30:00 105 mm[Hg] [facility] Heart rate 2020-01-10 02:30:00 83 /min [facility] Respiratory rate 2020-01-10 02:30:00 23 /min [facility] Oxygen saturation in Arterial blood by Pulse oximetry 2020-01-10 02:30:00 98 /min [facility] Body temperature 2020-01-10 00:26:00 36.89 Louise [facility] Body height 2020-01-10 00:26:00 172.7 cm [facility] Body weight 2020-01-10 00:26:00 106.595 kg [facility] BMI 2020-01-10 00:26:00 35.73 kg/m2 [facility] Procedures Procedure Date / Time Performed Performing Clinician Source HB ECG ROUTINE & RHYTHM STRIP 2024-03-13 13:05:29 Sarita Karl [facility] HB ECG ROUTINE & RHYTHM STRIP 2024-03-13 13:05:29 Karl Stein [facility] PHOSPHORUS 2024-03-13 10:04:00 Antonio Garcia [facility] MAGNESIUM 2024-03-13 [facility] (NA, K, CL, CO2, GLUCOSE, BUN, CREATININE, CA) 2024-03-13 10:04:00 Gerry Garcia [facility] CBC WITH DIFF 2024-03-13 10:04:00 Antonio Garcia [facility] PHOSPHORUS 2024-03-13 10:04:00 Antonio Garcia [facility] MAGNESIUM 2024-03-13 10:04:00 Antonio Garcia [facility] BASIC METABOLIC PANEL (NA, K, CL, CO2, GLUCOSE, BUN, CREATININE, CA) 2024-03-13 10:04:00 Gerry Garcia [facility] CBC WITH DIFF 2024-03-13 10:04:00 Antonio Garcia [facility] TROPONIN I 2024-03-13 05:54:00 Stefano [facility] TROPONIN I 2024-03-13 05:54:00 Stefano [facility] TROPONIN I 2024-03-13 02:15:00 Stefano [facility] ACTIVATED PARTIAL THRMPLAS LEENA 2024-03-13 02:15:00 Herbie [facility] TROPONIN I 2024-03-13 02:15:00 Stefano [facility] ACTIVATED PARTIAL THRMPLAS LEENA 2024-03-13 02:15:00 Herbie [facility] CATH PROCEDURE LOG 2024-03-12 23:00:07 Maury Hamilton [facility] CATH PROCEDURE LOG 2024-03-12 23:00:07 Maury Hamilton [facility] CARDIAC CATHETERIZATION 2024-03-12 22:40:42 Lorenzo cornejo [facility] CARDIAC CATHETERIZATION 2024-03-12 22:40:42 Lorenzo cornejo [facility] CARDIAC CATHETERIZATION 2024-03-12 22:40:42 Lorenzo cornejo [facility] CARDIAC CATHETERIZATION 2024-03-12 22:40:42 Lorenzo cornejo [facility] TROPONIN I 2024-03-12 17:29:00 Stefano Lor [facility] TROPONIN I 2024-03-12 17:29:00 Stefano [facility] HB ECG ROUTINE & RHYTHM STRIP 2024-03-12 14:57:43 Sarita [facility] HB ECG ROUTINE & RHYTHM STRIP 2024-03-12 14:57:43 Sarita [facility] TROPONIN I 2024-03-12 14:47:00 Stefano [facility] ACTIVATED PARTIAL THRMPLAS LEENA 2024-03-12 14:47:00 Luis Stoner [facility] TROPONIN I 2024-03-12 14:47:00 Lor Agarwal [facility] ACTIVATED PARTIAL THRMPLAS LEENA 2024-03-12 14:47:00 Luis Stoner [facility] TRANSTHORACIC ECHO (TTE) COMPLETE W/ CONTRAST 2024-03-12 13:34:00 Lor Agarwal [facility] TRANSTHORACIC ECHO (TTE) COMPLETE W/ CONTRAST 2024-03-12 13:34[facility] 2024-03-12 12:00:00 Lor Agarwal [facility] GLYCOSYLATED HEMOGLOBIN (A1C) 2024-03-12 12:00:00 Elsa [facility] CBC WITH DIFF 2024-03-12 12:00:00 Lor Agarwal [facility] GLYCOSYLATED HEMOGLOBIN (A1C) 2024-03-12 12:00:00 Elsa [facility] MAGNESIUM 2024-03-12 09:17:00 Stefano Lor [facility] TROPONIN I 2024-03-12 09:17:00 Lor Agarwal [facility] FREE T4 2024-03-12 09:17:00 Lor Agarwal [facility] BASIC METABOLIC PANEL (NA, K, CL, CO2, GLUCOSE, BUN, CREATININE, CA) 2024-03-12 09:17:00 Lor Agarwal [facility] LIPID PANEL (32172)(TOTAL CHOLESTEROL, TRIGLYCERIDES, HDL) 2024-03-12 09:17:00 Elsa [facility] ACTIVATED PARTIAL THRMPLAS LEENA 2024-03-12 09:17:00 Luis Stoner [facility] LOW-DENSITY LIPOPROTEIN, DIRECT 2024-03-12 09:17:00 Elsa [facility] MAGNESIUM 2024-03-12 09:17:00 Lor Agarwal [facility] TROPONIN I 2024-03-12 09:17:00 Stefano, [facility] FREE T4 2024-03-12 09:17:00 Stfeano [facility] BASIC METABOLIC PANEL (NA, K, CL, CO2, GLUCOSE, BUN, CREATININE, CA) 2024-03-12 09:17:00 Stefano [facility] LIPID PANEL ([id number])(TOTAL CHOLESTEROL, TRIGLYCERIDES, HDL) 2024-03-12 09:17:00 Elsa [facility] ACTIVATED PARTIAL THRMPLAS LEENA 2024-03-12 09:17:00 Luis Stoner [facility] LOW-DENSITY LIPOPROTEIN, DIRECT 2024-03-12 09:17:00 Elsa [facility] HB ECG ROUTINE & RHYTHM STRIP 2024-03-12 07:51:38 Stefano [facility] HB ECG ROUTINE & RHYTHM STRIP 2024-03-12 07:51:38 Stefano [facility] TROPONIN I 2024-03-12 06:06:00 Stefano [facility] THYROID STIMULATING HORMONE 2024-03-12 06:06:00 Stefano [facility] TROPONIN I 2024-03-12 06:06:00 Stefano [facility] THYROID STIMULATING HORMONE 2024-03-12 06:06:00 Stefano [facility] ACTIVATED PARTIAL THRMPLAS LEENA 2024-03-12 02:57:00 Luis Stoner [facility] ACTIVATED PARTIAL THRMPLAS LEENA 2024-03-12 02:57:00 Luis Stoner [facility] TROPONIN I 2024-03-12 01:57:00 Stefano [facility] TROPONIN I 2024-03-12 01:57:00 Stefano [facility] PROTHROMBIN TIME / INR 2024-03-11 22:29:00 Nasir Stoner [facility] ACTIVATED PARTIAL THRMPLAS LEENA 2024-03-11 22:29:00 Luis Stoner [facility] PROTHROMBIN TIME / INR 2024-03-11 22:29:00 Nasir Stoner [facility] ACTIVATED PARTIAL THRMPLAS LEENA 2024-03-11 22:29:00 Luis Stoner [facility] LIPASE 2024-03-11 20:50:00 [facility] TROPONIN I 2024-03-11 20:50:00 Luis [facility] COMP. METABOLIC PANEL (39496) 2024-03-11 20:50:00 Luis Stoner [facility] CBC WITH DIFF 2024-03-11 20:50:00 Luis Stoner [facility] N-TERMINAL PRO-BNP 2024-03-11 20:50:00 Luis Stoner [facility] LIPASE 2024-03-11 20:50:00 Luis Stoner [facility] TROPONIN I 2024-03-11 20:50:00 Luis Stoner [facility] COMP. METABOLIC PANEL ([id number]) 2024-03-11 20:50:00 Luis Stoner [facility] CBC WITH DIFF 2024-03-11 20:50:00 Luis Stoner [facility] N-TERMINAL PRO-BNP 2024-03-11 20:50:00 Luis Stoner [facility] XR CHEST 1 VW 2024-03-11 19:28:10 Luis Stoner [facility] XR CHEST 1 VW 2024-03-11 19:28:10 Luis Stoner [facility] EKG-12 LEAD 2024-03-11 18:46:30 Luis Stoner [facility] EKG-12 LEAD 2024-03-11 18:46:30 Luis [facility] CRITICAL CARE 2024-03-11 18:39:00 Luis Stoner [facility] CRITICAL CARE 2024-03-11 18:39:00 Luis Stoner [facility] XR CHEST 2 VW 2023-02-11 21:25:24 Ritika Nance [facility] LIPASE 2023-02-11 20:50:00 Ritika Nance [facility] TROPONIN I 2023-02-11 20:50:00 Ritika Nance Ryan [facility] COMP. METABOLIC PANEL ([id number]) 2023-02-11 20:50:00 Ritika Nance [facility] CBC WITH DIFF 2023-02-11 20:50:00 Ritika Nance [facility] PROTHROMBIN TIME / INR 2023-02-11 20:50:00 Ryan Nance [facility] D-DIMER 2023-02-11 20:50:00 Ritika Nance Ryan [facility] ACTIVATED PARTIAL THRMPLAS LEENA 2023-02-11 20:50:00 Ritika Nance [facility] N-TERMINAL PRO-BNP 2023-02-11 20:50:00 Anila Nance [facility] CONSENT/REFUSAL FOR DIAGNOSIS AND TREATMENT 2023-02-11 20:33:05 Doctor Unassigned, [place] [facility] D-DIMER 2022-12-21 04:56:00 Aries Salazar [facility] RAPID STREP SCREEN FOR GROUP A 2022-12-21 04:18:00 Aries Salazar [facility] COVID-19 (ID NOW RAPID TESTING) 2022-12-21 04:18:00 Aries Salazar [facility] XR ABDOMEN 2 VW 2022-12-21 04:16:00 Aries Salazar as [facility] XR CHEST 2 VW 2022-12-21 04:01:00 Aries Salazar [facility] LIPASE 2022-12-21 03:54:00 Aries Salazar [facility] TROPONIN I 2022-12-21 03:54:00 Aries Salazar [facility] COMP. METABOLIC PANEL ([id number]) 2022-12-21 03:54:00 Aries Salazar [facility] CBC WITH DIFF 2022-12-21 03:54:00 Aries Salazar [facility] CONSENT/REFUSAL FOR DIAGNOSIS AND TREATMENT 2022-12-21 03:35:49 Doctor Unassigned, [place] [facility] LIPASE 2022-09-28 05:53:00 Shannon Tate [facility] COMP. METABOLIC PANEL ([id number]) 2022-09-28 05:53:00 Shannon Tate [facility] CBC WITH DIFF 2022-09-28 05:53:00 Shannon Tate [facility] NOTICE OF PRIVACY PRACTICES 2022-09-28 04:21:22 Doctor Unassigned, [place] [facility] CONSENT/REFUSAL FOR DIAGNOSIS AND TREATMENT 2022-09-28 04:20:50 Doctor Unassigned, [place] [facility] CONSENT/REFUSAL FOR DIAGNOSIS AND TREATMENT 2022-06-09 14:12:56 Doctor Unassigned, [place] [facility] CT HEAD WO CONTRAST 2020-01-24 04:29:39 Shannon Tate [facility] CONSENT/REFUSAL FOR DIAGNOSIS AND TREATMENT 2020-01-24 03:34:06 Doctor Unassigned, [place] [facility] CREATINE KINASE 2020-01-22 21:04:00 [facility] 2020-01-22 21:04:00 Luis Stoner [facility] HEPATIC FUNCTION PANEL ([id number]) (ALB,T.PRO,BILI T,BU/BC,ALT,AST,ALK PHOS) 2020-01-22 21:04:00 Luis Stoner [facility] BASIC METABOLIC PANEL (NA, K, CL, CO2, GLUCOSE, BUN, CREATININE, CA) 2020-01-22 21:04:00 Luis Stoner [facility] CBC WITH DIFFERENTIAL 2020-01-22 21:04:00 Jean Stoner [facility] PROTHROMBIN TIME / INR 2020-01-22 21:04:00 Nasir Stoner [facility] ACTIVATED PARTIAL THRMPLAS LEENA 2020-01-22 21:04:00 Luis Stoner [facility] EKG-12 LEAD 2020-01-22 21:03:26 Luis [facility] CT HEAD WO CONTRAST 2020-01-10 01:59:59 Shannon Tate [facility] ADC / LCC - DRUG SCREEN TRIAGE 2020-01-10 01:37:00 Shannon Tate [facility] COVID-19 (ID NOW RAPID TESTING) 2020-01-10 01:37:00 Shannon Tate [facility] LIPASE 2020-01-10 01:34:00 Shannon Tate [facility] MAGNESIUM 2020-01-10 01:34:00 Shannon Tate [facility] TROPONIN I 2020-01-10 01:34:00 Bebeto Nvarnie [facility] COMP. METABOLIC PANEL ([id number]) 2020-01-10 01:34:00 Shannon Tate [facility] CBC WITH DIFFERENTIAL 2020-01-10 01:34:00 Davon Tate [facility] EKG-12 LEAD 2020-01-10 01:20:08 Shannon Tate [facility] NOTICE OF PRIVACY PRACTICES 2020-01-10 00:17:43 Doctor Unassigned, [place] [facility] CONSENT/REFUSAL FOR DIAGNOSIS AND TREATMENT 2020-01-10 00:17:22 Doctor Unassigned, [place] [facility] Encounters Start Date/Time End Date/Time Encounter Type Admission Type Attending [facility] Care Facility Care Department Encounter ID Source 2024-07-15 00:00:00 2024-07-15 00:00:00 Outpatient JOSSIE IGLESIAS [id number] Josie Han 2024-06-14 00:00:00 2024-06-14 08:07:40 Letter (Out) Kenneth Rai [facility] 1..840.114 350.1.13.10 4.2.7.2.686 [id number] [facility] 2024-05-15 00:00:00 2024-05-15 16:39:00 Telephone Bell Almonte [facility] 1..840.114 350.1.13.10 4.2.7.2.686 [id number] [facility] 2024-03-29 15:30:00 2024-03-29 16:13:54 Office Visit Artem Alonso [facility] N[facility] 1.2.840.114 350.1.13.10 4.2.7.2.686 [id number] [facility] 2024-03-26 08:00:00 2024-03-26 23:59:00 Hospital Encounter Bell Almonte [facility] 1.2.840.114 350.1.13.10 4.2.7.2.686 [id number] [facility] 2024-03-14 00:00:00 2024-03-18 15:11:16 Patient Secure Msg Doctor Unassigned, [place] Doctor Unassigned, [place] [facility] 1.2.840.114 350.1.13.10 4.2.7.2.686 [id number] [facility] 2024-03-11 13:54:00 2024-03-13 17:57:00 Inpatient U BELL ALMONTE [facility] [id number] [facility] 2024-03-11 13:54:00 2024-03-13 17:57:00 Hospital Encounter Luis Stoner Mohamad Khaled [facility] 1.2.840.114 350.1.13.10 4.2.7.2.686 [id number] [facility] 2024-03-12 15:10:00 2024-03-12 16:10:00 Surgery Maury Hamilton [facility] 1.2.840.114 350.1.13.10 4.2.7.2.686 [id number] [facility] 2024-01-19 12:48:00 2024-01-19 13:34:00 Emergency X LIDIA FERNANDEZ MARYANN [facility] ERT [id number] [facility] 2024-01-19 12:48:00 2024-01-19 13:34:00 Emergency Lidia Fernandez [facility] 1.2.840.114 350.1.13.10 4.2.7.2.686 [id number] [facility] 2024-01-05 00:00:00 2024-01-05 00:00:00 Outpatient MUKUND LUIS [id number] Josie [facility] 2023-10-13 13:30:00 2023-10-13 13:30:00 Outpatient JOSSIE IGLESIAS [id number] Josie [facility] 2023-10-13 00:00:00 2023-10-13 00:00:00 Outpatient JOSSIE IGLESIAS [id number] Josie [facility] 2023-10-12 16:00:00 2023-10-12 16:00:00 Outpatient JOSSIE IGLESIAS [id number] Josie [facility] 2023-09-23 00:00:00 2023-09-23 00:00:00 Outpatient SABINE LUISNY JOSIE WILBURN [id number] Josie [facility] 2023-09-22 10:20:00 2023-09-22 10:20:00 Outpatient ELAINE [facility] [id number] [facility] 09:15:00 2023-09-22 09:15:00 Outpatient MUKUND LUIS [id number] Josie [facility] 2023-09-22 00:00:00 2023-09-22 00:00:00 Outpatient MUKUND LUIS [id number] Josie [facility] 2023-09-22 00:00:00 2023-09-22 00:00:00 Outpatient MUKUND LUIS [id number] Josie [facility] 2023-09-01 00:00:00 2023-09-01 00:00:00 Outpatient JOSSIE IGLESIAS OJSIE [id number] [facility] 2023-08-30 16:00:00 2023-08-30 16:00:00 Outpatient JOSSIE IGLESIAS JOSIE [id number] [facility] 2023-08-08 00:00:00 2023-08-08 00:00:00 Outpatient JOSSIE IGLESIAS JOSIE [id number] Josie [facility] 2023-08-04 00:00:00 2023-08-04 00:00:00 Outpatient JOSSIE IGLESIAS JOSIE [id number] [facility] 2023-08-02 16:20:00 2023-08-02 16:20:00 Outpatient LUCRECIA WILBURN JOSIE [id number] [facility] 2023-08-02 15:30:00 2023-08-02 15:30:00 Outpatient JOSSIE IGLESIASCAROLYN WILBURN [id number] [facility] 2023-08-02 00:00:00 2023-08-02 00:00:00 Outpatient JOSIE JOSIE [id number] Josie [facility] 2023-08-01 10:00:00 2023-08-01 10:00:00 Outpatient JOSSIE IGLESIAS JOSIE [id number] [facility] 2023-07-27 14:30:00 2023-07-27 14:30:00 Outpatient JOSSIE IGLESIAS JOSIE WILBURN [id number] [facility]23-07-24 16:00:00 2023-07-24 16:00:00 Outpatient JOSSIE IGLESIAS JOSIE [id number] [facility] 2023-07-19 14:30:00 2023-07-19 14:30:00 Outpatient JOSSIE IGLESIAS JOSIE WILBURN [id number] [facility] 2023-07-18 11:30:00 2023-07-18 11:30:00 Outpatient JOSSIE IGLESIASCAROLYN WILBURN [id number] [facility] 2023-07-11 14:00:00 2023-07-11 14:00:00 Outpatient JOSSIE IGLESIAS [facility] [id number] [facility] 09:00:00 2023-07-04 09:00:00 Outpatient JOSSIE IGLESIAS JOSIE [id number] Josie [facility] 2023-06-20 16:30:00 2023-06-20 16:30:00 Outpatient JOSSIE IGLESIAS JOSIE [id number] [facility] 2023-06-20 00:00:00 2023-06-20 00:00:00 Outpatient JOSSIE IGLESIAS JOSIE [id number] [facility] 2023-06-15 16:30:00 2023-06-15 16:30:00 Outpatient JOSSIE IGLESIAS JOSIE WILBURN [id number] [facility] 2023-06-15 00:00:00 2023-06-15 00:00:00 Outpatient MD JOSIE KENDALL [id number] [facility] 2023-06-12 16:30:00 2023-06-12 16:30:00 Outpatient JOSSIE IGLESIAS JOSIE [id number] [facility] 2023-02-24 00:00:00 2023-02-24 00:00:00 Telephone [facility] 1..840.114 350.1.13.10 4.2.7.2.686 [id number] [facility] 2023-02-11 15:41:00 2023-02-11 18:32:00 Emergency X RITIKA NANCE [facility] E[facility] [id number] [facility] 2023-02-11 15:41:00 2023-02-11 18:32:00 Emergency Ritika Nance [facility] 1..840.114 350.1.13.10 4.2.7.2.686 [id number] [facility] 2022-12-20 22:45:00 2022-12-21 01:16:00 Emergency X ARIES SALAZAR [facility] E[facility] [id number] [facility] 2022-12-20 22:45:00 2022-12-21 01:16:00 Emergency Aries Salazar [facility] 1.2.840.114 350.1.13.10 4.2.7.2.686 [id number] [facility] 2022-09-27 22:48:00 2022-09-28 02:20:00 Emergency X SHANNON TATE [facility] ERT [id number] [facility] 2022-09-27 22:48:00 2022-09-28 02:20:00 Emergency Shannon Tate [facility] [id number] [id number] [id number] [facility] 2022-06-09 09:17:00 2022-06-09 12:10:00 Emergency JIMMY DUMONT TIMOTHY [facility] ERT [id number] [facility] 2022-06-09 09:17:00 2022-06-09 12:10:00 Emergency Jimmy Hernandez [facility] [id number] [id number] [id number] [facility] 2022-06-09 00:00:00 2022-06-09 00:00:00 Orders Only Doctor Unassigned, [place] [facility] 1.2.840.114 350.1.13.10 4.2.7.2.686 [id number] [facility] 2020-01-23 22:46:07 2020-01-24 00:19:00 Emergency SHANNON HERNANDEZ [facility] ERT [id number] [facility] 2020-01-23 22:46:07 2020-01-24 00:19:00 Emergency Shannon Tate [facility] 1.2.840.114 350.1.13.10 4.2.7.2.686 [id number] [facility] 2020-01-22 15:47:57 2020-01-22 16:43:00 Emergency Luis Stoner [facility] 1.2.840.114 350.1.13.10 4.2.7.2.686 [id number] [facility] 2020-01-22 15:47:57 2020-01-22 15:47:57 Emergency NASIR BARBOZANYU [facility] ERT [id number] [facility] 2020-01-09 19:21:02 2020-01-09 22:02:00 Emergency Shannon Tate [place] [facility] 1.2.840.114 350.1.13.10 4.2.7.2.686 [id number] [facility] 2020-01-09 19:21:02 2020-01-09 22:02:00 Emergency SHANNON HERNANDEZ [facility] ERT [id number] [facility] Results Test Description Test Time Test Comments Results Result Comments Source Cardiovascular Catheterization 23:45:02 Left Heart Cath/Coronary Angiography Andreea Rai Date of Service: 03/12/2024 ?5:50 PM Attending faculty: Isamar Davis: Dr Wills Physician: Dr. Almonte Procedures Performed:LHC/Coronary angiogram: CPT 92487EAEH single vessel: CPT 15370 Indication/Diagnosis: NSTEMI and Hypertensive emergency. Consent: Risks, benefits, alternatives and complications of the procedure discussed with the patient, who understood and agreed to proceed. Aseptic technique: Chlorprep Local Anesthesia: 1% lidocaine without epinephrine Sedation: Moderate Access site: Right radial artery Closure Method: TR band Sterile dressing: yes Complications: none Procedures: After patient identification/verific ation, the patient was thereafter transferred to the engineer geophysical laboratory table. ?The access site was prepped and [...] highest level of supervision. IVUS:We used 6 Tristanian JR4 guide to engage the RCA. We [...] Interpretation Comme nts Height (test code = 4146028760) 68 in Weight (test code = 6502148297) 249 lbs Systolic BP (test code = 2679255512) 124 mmHg Diastolic BP (test code = 4335700498) 84 mmHg Heart Rate (test code = 4758210609) 59 bpm LVOT stroke volume (test code = 6385986700) 57.50 cm3 EF(Teich) (test code = 0513854641) 65.80 % LVIDD (test code = 5797153373) 5.50 cm LVIDS (test code = 0743126165) 3.50 cm Left Ventricular End Systolic Volume by Teichholz Method (test code = 1610917) 50.4 mL Left Ventricular End Diastolic Volume by Teichholz Method (test code = 6240864) 147.3 mL IVS (test code = 6079577202) 1.10 cm LVPWD (test code = 2346026000) 1.08 cm LVOT diameter (test code = 8741547599) 2.11 cm LVOT area (test code = 4956515524) 3.50 cm2 FS (test code = 4064285861) 37 % MV Peak E Deon (test code = 1332991276) 61.3 cm/s MV Peak A Deon (test code = 9830516851) 76.3 cm/s E/A ratio (test code = 9706256909) 0.80 ratio E wave decelartion time (test code = 9363536932) 0.20 s MV E/e' septal (test code = 4807441877) 5.5 cm/s LA Volume Index (BP) (test code = 9109842817) 41.6 mL/m2 LA volume (BP) (test code = 8838239918) 93.3 mL LVOT peak deon (test code = 6151705677) 81.4 cm/s LVOT mn grad (test code = 4940017897) 1.4 mmHg LV GLS Endo Peak A2C () (test code = 5817598120) -17.60 % LV GLS Endo Peak A3C () (test code = 7478300874) -13.60 % LV GLS Endo Peak A4C () (test code = 9017025602) -18.40 % LV GLS Endo Peak Avg () (test code = 6390907063) -16.50 % BSA (test code = 5991900501) 2.24 m2 LA size (test code = 8381412567) 5.3 cm LAV(MOD-sp2) (test code = 2686126409) 76.80 mL LAV(MOD-sp4) (test code = 8630257859) 100.60 mL Tapse (test code = 5320050668) 1.60 cm AV LVOT peak gradient (test code = 6873733490) 2.7 mmHg LVOT peak VTI (test code = 9443884773) 16.4 cm LV V1 mean (test code = 9892572654) 56.10 cm/s MV Prop V (test code = 2218770418) 44.10 cm/s Ao root diam (test code = 3998120547) 4.00 cm Aortic root (test code = 1131527041) 4.0 cm Ao root annulus (test code = 3247718433) 4.0 cm PW (test code = 3957532547) 1.08 cm 0.6-1.1 EF - 2D (test code = 14702643) 65.80 % Interventricular Septum Diastolic Thickness by 2D (test code = 9370539) 1.10 cm GLS (test code = 7271561788) -16 % A2C EF (test code = 3234742546) 54.40 % EF(sp2-el) (test code = 4379635514) 64.90 % SV(MOD-sp2) (test code = 4943427178) 56.40 mL LV Diastolic Volume (BP) (test code = 3042825296) 127.8 mL A4C EF (test code = 2626030189) 57.40 % EF(MOD-bp) (test code = 9453190286) 59.90 % EF(sp4-el) (test code = 0740368230) 39.70 % LV Systolic Volume (BP) (test code = 1694195601) 51.2 mL SV(MOD-bp) (test code = 1885696119) 76.60 mL SV(MOD-sp4) (test code = 8112010714) 81.60 mL SV(sp4-el) (test code = 1656125415) 69.80 mL EF (test code = 2512649696) 60 Left Ventricular Stroke Volume by 2-D Biplane-MOD (test code = 4100317) 76.6 mL LV Diastolic Volume Index (BP) (test code = 1857486862) 57.1 mL/m2 LV Systolic Volume Index (BP) (test code = 4050244011) 22.9 mL/m2 Radiology Study observation (narrative) (test code = 54271-5) JAZZMINE (test code = JAZZMINE) ?Left?Ventricle: Left [...] enhancing agent used. Patient exhibited sinus rhythm. [facility] / [id number] 23:47:41* Test Item Value Reference Range Interpretation Comme nts PROTIME PATIENT (test code = 5964-2) 12.1 10.1-12.6 INR (test code = 6301-6) 1.0 Normal INR <1.1; Warfarin Therapeutic range 2.0 to 3.0 or 2.5 to 3.5, depending upon the indications. Lab Interpretation (test code = 99758-8) Normal [facility]PTT2024-[facility] 23:47:41* Test Item Value Reference Range Interpretation Comme nts APTT Patient (test code = 3173-2) 135 26-36 HH JAZZMINE (test code = JAZZMINE) The [facility] patient population mean normal value for aPTT is 30 seconds. Lab Interpretation (test code = 02405-5) Abnormal [facility] / [id number] 23:47:41* Test Item Value Reference Range Interpretation Comme nts PROTIME PATIENT (test code = 5964-2) 12.1 10.1-12.6 INR (test code = 6301-6) 1.0 Normal INR <1.1; Warfarin Therapeutic range 2.0 to 3.0 or 2.5 to 3.5, depending upon the indications. Lab Interpretation (test code = 07743-2) Normal [facility]2024-[facility]-29 23:47:41* Test Item Value Reference Range Interpretation Comme nts APTT Patient (test code = 3173-2) 135 26-36 HH JAZZMINE (test code = JAZZMINE) The [facility] patient population mean normal value for aPTT is 30 seconds. Lab Interpretation (test code = 19884-1) Abnormal [facility]MINAL [id number] 22:11:53* Test Item Value Reference Range Interpretation Comme nts NT-proBNP (test code = 68280-5) <=125 Lab Interpretation (test cod e = 95641-7) Normal [facility]AL VJI-[id number] 22:11:53* Test Item Value Reference Range Interpretation Comme nts NT-proBNP (test code = 49072-4) <=125 Lab Interpretation (test cod e = 64626-2) Normal [facility] [id number] 22:05:44* Test Item Value Reference Range Interpretation Comme nts TROPONIN I (test code = 6993871977) 0.081 ng/mL <=0.034 H JAZZMINE (test code [...] of biotin. Lab Interpretation (test code = 96719-3) Abnormal [facility] [id number] 22:05:44* Test Item Value Reference Range Interpretation Comme nts TROPONIN I (test code = 3173414588) 0.081 ng/mL <=0.034 H JAZZMINE (test code [...] of biotin. Lab Interpretation (test code = 62308-2) Abnormal [facility]OLIC PANEL (82049)2024-03-11 21:55:00* Test Item Value Reference Range Interpretation Comme nts NA (test code = 9699825406) 136 mmol/L 135-145 K (test code = 0477451562) 4.3 mmol/L 3.5-5.0 CL (test code = 8846726788) 105 mmol/L 98-108 CO2 TOTAL (test code = 8844686406) 19 mmol/L 23-31 L AGAP (test code = 0900594888) 12 2-16 BUN (test code = 2100769154) 9 mg/dL 7-23 GLUCOSE (test code = 0225903982) 87 mg/dL 70-110 CREATININE (test code = 2160-0) 0.77 mg/dL 0.60-1.25 TOTAL BILI (test code = 3105809651) 0.9 mg/dL 0.1-1.1 CALCIUM (test code = 1734750887) 9.0 mg/dL 8.6-10.6 T PROTEIN (test code = 6826422816) 8.1 g/dL 6.3-8.2 ALBUMIN (test code = 9985658264) 4.7 g/dL 3.5-5.0 ALK PHOS (test code = 1187071099) 84 U/L 34-122 ALTv (test code = 1742-6) 25 U/L 5-50 AST(SGOT) (test code = 4465316127) 29 U/L 13-40 eGFR (test code = 84136-3) 111.8 mL/min/1.73m2 CKD-EPI eGFR (2020). Assuming creatinine has been stable day-to-day for at least three months, the eGFR indicates Category G1 (>= 90 mL/min/1.73 m2) Lab Interpretation (test code = 14897-2) Abnormal [facility]2024-07-29 21:55:00* Test Item Value Reference Range Interpretation Comme nts LIPASE (test code = 2097498998) 83 U/L 0-220 Lab Interpretation (test cod e = 68885-1) Normal [facility]OL[facility] PAN[facility] (08261)2024-03-11 21:55:00* Test Item Value Reference Range Interpretation Comme nts NA (test code = 5319652705) 136 mmol/L 135-145 K (test code = 8193352070) 4.3 mmol/L 3.5-5.0 CL (test code = 9380699236) 105 mmol/L 98-108 CO2 TOTAL (test code = 7560631603) 19 mmol/L 23-31 L AGAP (test code = 8016014120) 12 2-16 BUN (test code = 4609375320) 9 mg/dL 7-23 GLUCOSE (test code = 7575577395) 87 mg/dL 70-110 CREATININE (test code = 2160-0) 0.77 mg/dL 0.60-1.25 TOTAL BILI (test code = 2980810446) 0.9 mg/dL 0.1-1.1 CALCIUM (test code = 0109732741) 9.0 mg/dL 8.6-10.6 T PROTEIN (test code = 8263085527) 8.1 g/dL 6.3-8.2 ALBUMIN (test code = 2440606077) 4.7 g/dL 3.5-5.0 ALK PHOS (test code = 3756181730) 84 U/L 34-122 ALTv (test code = 1742-6) 25 U/L 5-50 AST(SGOT) (test code = 3397514158) 29 U/L 13-40 eGFR (test code = 52038-9) 111.8 mL/min/1.73m2 CKD-EPI eGFR (2020). Assuming creatinine has been stable day-to-day for at least three months, the eGFR indicates Category G1 (>= 90 mL/min/1.73 m2) Lab Interpretation (test code = 75340-5) Abnormal [facility]2024-07-29 21:55:00* Test Item Value Reference Range Interpretation Comme nts LIPASE (test code = 9158417517) 83 U/L 0-220 Lab Interpretation (test cod e = 84125-9) Normal [facility]CBC WITH [id number] 21:13:11* Test Item Value Reference Range Interpretation [...] 33.9 g/dL 31.2-35.0 RDW-SD (test code = 72445-7) 47.6 fL 38.5-51.6 RDW-CV (test code = 788-0) 13.1 % 12.1-15.4 PLT (test code = 777-3) 270 150-328 MPV (test code = 65357-6) 10.0 fL 9.8-13.0 NRBC/100 WBC (test code = 9161764797) 0.0 0.0-10.0 NRBC x10^3 (test code = 9675428887) See_Comment [Automated messa ge] The system which generated this result transmitted reference range: 10*3/?L. The reference range was not used to interpret this result as normal/abnormal. GRAN MAT (NEUT) % (test code = 770-8) 76.4 % IMM GRAN % (test code = 4445970226) 0.80 % LYMPH % (test code = 736-9) 14.1 % MONO % (test code = 5905-5) 6.6 % EOS % (test code = 713-8) 1.7 % BASO % (test code = 706-2) 0.4 % GRAN MAT x10^3(ANC) (test code = 6907581900) 7.88 10*3/uL 1.99-6.95 H IMM GRAN x10^3 (test code = 1578668872) 0.08 10*3/uL 0.00-0.06 H LYMPH x10^3 (test code = 731-0) 1.46 10*3/uL 1.09-3.23 MONO x10^3 (test code = 742-7) 0.68 10*3/uL 0.36-1.02 EOS x10^3 (test code = 711-2) 0.18 10*3/uL 0.06-0.53 BASO x10^3 (test code = 704-7) 0.04 10*3/uL 0.01-0.09 Lab Interpretation (test code = 07644-0) Abnormal [facility] WITH [id number] 21:13:11* Test Item Value Reference Range Interpretation [...] 33.9 g/dL 31.2-35.0 RDW-SD (test code = 21927-1) 47.6 fL 38.5-51.6 RDW-CV (test code = 788-0) 13.1 % 12.1-15.4 PLT (test code = 777-3) 270 150-328 MPV (test code = 94227-9) 10.0 fL 9.8-13.0 NRBC/100 WBC (test code = 5925269878) 0.0 0.0-10.0 NRBC x10^3 (test code = 6129092739) See_Comment [Automated messa ge] The system which generated this result transmitted reference range: 10*3/?L. The reference range was not used to interpret this result as normal/abnormal. GRAN MAT (NEUT) % (test code = 770-8) 76.4 % IMM GRAN % (test code = 1980917439) 0.80 % LYMPH % (test code = 736-9) 14.1 % MONO % (test code = 5905-5) 6.6 % EOS % (test code = 713-8) 1.7 % BASO % (test code = 706-2) 0.4 % GRAN MAT x10^3(ANC) (test code = 1193308392) 7.88 10*3/uL 1.99-6.95 H IMM GRAN x10^3 (test code = 5198505231) 0.08 10*3/uL 0.00-0.06 H LYMPH x10^3 (test code = 731-0) 1.46 10*3/uL 1.09-3.23 MONO x10^3 (test code = 742-7) 0.68 10*3/uL 0.36-1.02 EOS x10^3 (test code = 711-2) 0.18 10*3/uL 0.06-0.53 BASO x10^3 (test code = 704-7) 0.04 10*3/uL 0.01-0.09 Lab Interpretation (test code = 49328-8) Abnormal [facility] 1 [id number] 20:47:41Study: Single view chest. Ordering Physician: GIANA STONER Date: 03/11/2024 2:00 PM History:chestpain COMPARISON: None. Findings: Single frontal view chest demonstrates a normal heart size. Thelungs are clear without infiltrate, pleural effusion or pneumothorax. Noacute osseous abnormality is identified.[facility]XR [facility]ST 1 [id number] 20:47:41Study: Single view chest. Ordering Physician: GIANA STONER Date: 03/11/2024 2:00 PM History:chestpain COMPARISON: None. Findings: Single frontal view chest demonstrates a normal heart size. Thelungs are clear without infiltrate, pleural effusion or pneumothorax. Noacute osseous abnormality is identified.[facility] HospitalCritical [id number] 18:39:00Luis Stoner MD ? ? 03/11/2024 ?8:56 [...] of separately billable procedures and treating other patients.[facility] HospitalD-UMWOB1880-53-25 22:03:21* Test Item Value Reference Range Interpretation Comments D-DIMER (test code = 9821728342) See_Comment [Automated message] The system which generated [...] a diagnosis. Lab Interpretation (test code = 76909-0) Normal [facility] HospitalTROPONIN [id number] 21:35:32* Test Item Value Reference Range Interpretation Comme nts TROPONIN I (test code = 9486680397) 0.002 ng/mL <=0.034 JAZZMINE (test code = [...] of biotin. Lab Interpretation (test code = 11666-4) Normal [facility] HospitalN-TERMINAL [id number] 21:31:54* Test Item Value Reference Range Interpretation Comme nts NT-proBNP (test code = 8516689835) 64 pg/mL <=125 JAZZMINE (test code = JAZZMINE) Biotin has been reported to cause a negative bias, interpret results relative to patient's use of biotin. Lab Interpretation (test code = 49566-1) Normal [facility] HospitalCOMP. METABOLIC PANEL (48524)2023-02-11 21:24:52* Test Item Value Reference Range Interpretation Comme nts NA (test code = 6111214183) 138 mmol/L 135-145 K (test code = 6406721574) 4.3 mmol/L 3.5-5.0 CL (test code = 3767719134) 102 mmol/L 98-108 CO2 TOTAL (test code = 6347410870) 25 mmol/L 23-31 AGAP (test code = 0437283383) 11 2-16 BUN (test code = 1737460168) 12 mg/dL 7-23 GLUCOSE (test code = 1017009422) 127 mg/dL 70-110 H CREATININE (test code = 8489372237) 0.70 mg/dL 0.60-1.25 TOTAL BILI (test code = 8743524296) 0.5 mg/dL 0.1-1.1 CALCIUM (test code = 3763253030) 9.3 mg/dL 8.6-10.6 T PROTEIN (test code = 3650131844) 7.5 g/dL 6.3-8.2 ALBUMIN (test code = 4991866451) 4.5 g/dL 3.5-5.0 ALK PHOS (test code = 4715320084) 79 U/L 34-122 ALTv (test code = 1742-6) 28 U/L 5-50 AST(SGOT) (test code = 8992722095) 25 U/L 13-40 eGFR (test code = 8357415886) 122.0 mL/min/1.73m2 JAZZMINE (test code = JAZZMINE) [...] imaging tests). Lab Interpretation (test code = 81434-7) Abnormal [facility]LIPASE2023-07-01 21:24:52* Test Item Value Reference Range Interpretation Comme nts LIPASE (test code = 2134374997) 88 U/L 0-220 Lab Interpretation (test cod e = 51454-3) Normal [facility] HospitalACTIVATED PARTIAL THRMPLAS [id number] 21:21:16* Test Item Value Reference Range Interpretation Comme [facility] APTT Patient (test code = 3173-2) 27 See_Comment [Automated message] The system which generated this result transmitted reference range: 23 - 38 Seconds. The reference range was not used to interpret this result as normal/abnormal. JAZZMINE (test code = JAZZMINE) The [facility] patient population mean normal value for aPTT is 30 seconds. Lab Interpretation (test code = 56239-9) Normal [facility] HospitalPROTHROMBIN TIME / [id number] 21:19:10* Test Item Value Reference Range Interpretation Comme [facility] PROTIME PATIENT (test code = 5964-2) 12.6 See_Comment [Automated [employer]] The system which generated this result transmitted reference range: 12.0 - 14.7 Seconds. The reference range was not used to interpret this result as normal/abnormal. INR (test code = 6301-6) 1.0 Normal INR <1.1; Warfarin Therapeutic range 2.0 to 3.0 or 2.5 to 3.5, depending upon the indications. Lab Interpretation (test code = 83974-3) Normal [facility] HospitalCBC WITH [id number] 21:12:28* Test Item Value Reference Range Interpretation Comme [facility] WBC (test code = 6690-2) 6.69 See_Comment [Automated [employer]] The system which generated this result transmitted reference range: 4.20 - 10.70 10*3/?L. The reference range was not used to interpret this result as normal/abnormal. RBC (test code = 789-8) 4.63 See_Comment [Automated [employer]] The system which generated this result [...] g/dL 31.2-35.0 H RDW-SD (test code = 15040-9) 44.4 fL 38.5-51.6 RDW-CV (test code = 788-0) 12.7 % 12.1-15.4 PLT (test code = 777-3) 281 See_Comment [Automated messa ge] The system which generated this result transmitted reference range: 150 - 328 10*3/?L. The reference range was not used to interpret this result as normal/abnormal. MPV (test code = 07046-3) 9.9 fL 9.8-13.0 NRBC/100 WBC (test code = 4425219413) 0.0 See_Comment [Automated me ssage] The system which generated this result transmitted reference range: 0.0 - 10.0 /100 WBCs. The reference range was not used to interpret this result as normal/abnormal. NRBC x10^3 (test code = 7066186033) See_Comment [Automated messa ge] The system which generated this result transmitted reference range: 10*3/?L. The reference range was not used to interpret this result as normal/abnormal. GRAN MAT (NEUT) % (test code = 770-8) 60.5 % IMM GRAN % (test code = 5552816586) 1.80 % LYMPH % (test code = 736-9) 27.4 % MONO % (test code = 5905-5) 8.2 % EOS % (test code = 713-8) 1.2 % BASO % (test code = 706-2) 0.9 % GRAN MAT x10^3(ANC) (test code = 0437491010) 4.05 10*3/uL 1.99-6.95 IMM GRAN x10^3 (test code = 1341851210) 0.12 10*3/uL 0.00-0.06 H LYMPH x10^3 (test code = 731-0) 1.83 10*3/uL 1.09-3.23 MONO x10^3 (test code = 742-7) 0.55 10*3/uL 0.36-1.02 EOS x10^3 (test code = 711-2) 0.08 10*3/uL 0.06-0.53 BASO x10^3 (test code = 704-7) 0.06 10*3/uL 0.01-0.09 Lab Interpretation (test code = 18939-4) Abnormal [facility] HospitalTroponin [id number] 04:30:03* Test Item Value Reference Range Interpretation Comme nts TROPONIN I (test code = 1954964584) 0.003 ng/mL <=0.034 JAZZMINE (test code = [...] of biotin. Lab Interpretation (test code = 29694-4) Normal [facility] Met[facility] Panel (32909)2022-12-21 04:17:01* Test Item Value Reference Range Interpretation Comme nts NA (test code = 1836517027) 136 mmol/L 135-145 K (test code = 6584194825) 4.6 mmol/L 3.5-5.0 CL (test code = 1439960630) 101 mmol/L 98-108 CO2 TOTAL (test code = 8512852096) 24 mmol/L 23-31 AGAP (test code = 1012422428) 11 2-16 BUN (test code = 2121984025) 11 mg/dL 7-23 GLUCOSE (test code = 4383835006) 107 mg/dL 70-110 CREATININE (test code = 3387867531) 1.27 mg/dL 0.60-1.25 H TOTAL BILI (test code = 7583589871) 0.5 mg/dL 0.1-1.1 CALCIUM (test code = 9624147037) 9.5 mg/dL 8.6-10.6 T PROTEIN (test code = 4315312708) 8.1 g/dL 6.3-8.2 ALBUMIN (test code = 9570437593) 4.8 g/dL 3.5-5.0 ALK PHOS (test code = 0455294134) 60 U/L 34-122 ALTv (test code = 1742-6) 32 U/L 5-50 AST(SGOT) (test code = 1674952439) 28 U/L 13-40 eGFR (test code = 0312186307) 61.3 mL/min/1.73m2 JAZZMINE (test code = JAZZMINE) [...] imaging tests). Lab Interpretation (test code = 86181-5) Abnormal [facility] HospitalLipase [id number] 04:16:20* Test Item Value Reference Range Interpretation Comme [facility] LIPASE (test code = 1600450799) 74 U/L 0-220 Lab Interpretation (test cod e = 16820-6) Normal [facility] HospitalCBC with [id number] 04:05:41* Test Item Value Reference Range Interpretation [...] 34.6 g/dL 31.2-35.0 RDW-SD (test code = 82661-7) 43.6 fL 38.5-51.6 RDW-CV (test code = 788-0) 12.4 % 12.1-15.4 PLT (test code = 777-3) 274 See_Comment [Automated messa ge] The system which generated this result transmitted reference range: 150 - 328 10*3/?L. The reference range was not used to interpret this result as normal/abnormal. MPV (test code = 51622-1) 9.8 fL 9.8-13.0 NRBC/100 WBC (test code = 0808435704) 0.0 See_Comment [Automated [employer] ssage] The system which generated this result transmitted reference range: 0.0 - 10.0 /100 WBCs. The reference range was not used to interpret this result as normal/abnormal. NRBC x10^3 (test code = 3154181609) See_Comment [Automated messa ge] The system which generated this result transmitted reference range: 10*3/?L. The reference range was not used to interpret this result as normal/abnormal. GRAN MAT (NEUT) % (test code = 770-8) 62.9 % IMM GRAN % (test code = 3674705802) 0.90 % LYMPH % (test code = 736-9) 26.1 % MONO % (test code = 5905-5) 8.2 % EOS % (test code = 713-8) 1.2 % BASO % (test code = 706-2) 0.7 % GRAN MAT x10^3(ANC) (test code = 9661134128) 3.54 10*3/uL 1.99-6.95 IMM GRAN x10^3 (test code = 6249703259) 0.05 10*3/uL 0.00-0.06 LYMPH x10^3 (test code = 731-0) 1.47 10*3/uL 1.09-3.23 MONO x10^3 (test code = 742-7) 0.46 10*3/uL 0.36-1.02 EOS x10^3 (test code = 711-2) 0.07 10*3/uL 0.06-0.53 BASO x10^3 (test code = 704-7) 0.04 10*3/uL 0.01-0.09 Lab Interpretation (test code = 75331-6) Abnormal [facility]OLIC PANEL (73778)2022-09-28 06:22:14* Test Item Value Reference Range Interpretation Comme nts NA (test code = 3111438156) 136 mmol/L 135-145 K (test code = 5815389398) 4.3 mmol/L 3.5-5.0 CL (test code = 4836869028) 103 mmol/L 98-108 CO2 TOTAL (test code = 8681613263) 25 mmol/L 23-31 AGAP (test code = 8835122478) 8 2-16 BUN (test code = 8534610866) 12 mg/dL 7-23 GLUCOSE (test code = 7376807129) 107 mg/dL 70-110 CREATININE (test code = 0664213931) 0.71 mg/dL 0.60-1.25 TOTAL BILI (test code = 7575737849) 0.4 mg/dL 0.1-1.1 CALCIUM (test code = 3460317559) 8.7 mg/dL 8.6-10.6 T PROTEIN (test code = 8308737746) 7.3 g/dL 6.3-8.2 ALBUMIN (test code = 7457530980) 4.5 g/dL 3.5-5.0 ALK PHOS (test code = 1195460126) 82 U/L 34-122 ALTv (test code = 1742-6) 25 U/L 5-50 AST(SGOT) (test code = 0110862859) 20 U/L 13-40 eGFR (test code = 3255510601) 120.0 mL/min/1.73m2 JAZZMINE (test code = JAZZMINE) [...] abnormalities in imaging tests). [facility] Test Item Value Reference Range Interpretation Comme nts LIPASE (test code = 4674059364) 81 U/L 0-220 Lab Interpretation (test cod e = 12842-8) [facility] [id number] 06:09:33* Test Item Value Reference Range Interpretation [...] g/dL 31.2-35.0 H RDW-SD (test code = 33222-2) 43.8 fL 38.5-51.6 RDW-CV (test code = 788-0) 12.6 % 12.1-15.4 PLT (test code = 777-3) 281 See_Comment [Automated messa ge] The system which generated this result transmitted reference range: 150 - 328 10*3/?L. The reference range was not used to interpret this result as normal/abnormal. MPV (test code = 20264-6) 9.5 fL 9.8-13.0 L NRBC/100 WBC (test code = 1618114165) 0.0 See_Comment [Automated [place] ssage] The system which generated this result transmitted reference range: 0.0 - 10.0 /100 WBCs. The reference range was not used to interpret this result as normal/abnormal. NRBC x10^3 (test code = 6442004785) See_Comment [Automated messa ge] The system which generated this result transmitted reference range: 10*3/?L. The reference range was not used to interpret this result as normal/abnormal. GRAN MAT (NEUT) % (test code = 770-8) 53.7 % IMM GRAN % (test code = 3936855574) 1.30 % LYMPH % (test code = 736-9) 29.5 % MONO % (test code = 5905-5) 10.9 % EOS % (test code = 713-8) 4.0 % BASO % (test code = 706-2) 0.6 % GRAN MAT x10^3(ANC) (test code = 8062457670) 3.58 10*3/uL 1.99-6.95 IMM GRAN x10^3 (test code = 7740266241) 0.09 10*3/uL 0.00-0.06 H LYMPH x10^3 (test code = 731-0) 1.97 10*3/uL 1.09-3.23 MONO x10^3 (test code = 742-7) 0.73 10*3/uL 0.36-1.02 EOS x10^3 (test code = 711-2) 0.27 10*3/uL 0.06-0.53 BASO x10^3 (test code = 704-7) 0.04 10*3/uL 0.01-0.09 Lab Interpretation (test code = 35845-7) [facility] [id number] 04:33:44No acute findings. HISTORY:Headache, acute, normal neuro [...] isseen.The extracranialtissues demonstrate no acute findings.IMPRESSIONNo acute findings.[facility] HospitalTroponin [id number] 21:34:00* Test Item Value Reference Range Interpretation Comme [facility] TROPONIN I (test code = 3140138442) <0.012 See_Comment [Automated message] The system which [...] biotin. ? Lab Interpretation (test code = 48781-3) Normal [facility] (PT[facility] / [id number] 21:25:00 * Test Item Value Reference Range Interpretation Comme [facility] PROTIME PATIENT (test code = 5964-2) See_Comment [Automated messa ge] The system which generated this result transmitted reference range: 12.0 - 14.7 Seconds. The reference range was not used to interpret this result as normal/abnormal. INR (test code = 6301-6) Normal INR <1.1; Warfarin Therapeutic range 2.0 to 3.0 or 2.5 to 3.5, depending upon the indications. Lab Interpretation (test code = 36139-4) Normal [facility]2020-06-10 21:24:00* Test Item Value Reference Range Interpretation Comme [facility] APTT Patient (test code = 3173-2) See_Comment [Automated message] The system which generated this result transmitted reference range: 23 - 38 Seconds. The reference range was not used to interpret this result as normal/abnormal. JAZZMINE (test code = JAZZMINE) The [facility] patient population mean normal value for aPTT is 30 seconds. Lab Interpretation (test code = 26745-5) Normal [facility] Metabolic Panel (NA, K, CL, CO2, GLUCOSE, BUN, CREATININE, CA)2020-01-22 21:23:00* Test Item Value Reference Range Interpretation Comme [facility] NA (test code = 8971301172) 141 mmol/L 135-145 K (test code = 3146260536) 4.1 mmol/L 3.5-5 CL (test code = 9049691013) 106 mmol/L 98-108 CO2 TOTAL (test code = 0976553431) 25 mmol/L 23-31 AGAP (test code = 6902984089) 2-16 BUN (test code = 7189244654) 16 mg/dL 7-23 GLUCOSE (test code = 1911074787) 169 mg/dL 70-110 H CREATININE (test code = 1432202601) 1.41 mg/dL 0.6-1.25 H CALCIUM (test code = 1601622118) 10.4 mg/dL 8.6-10.6 eGFR Calculation (Non-) (test code = 7601733839) mL/min/1.73m2 eGFR Calculation () (test code = 2568763918) mL/min/1.73m2 JAZZMINE (test code = JAZZMINE) Association [...] imaging tests). Lab Interpretation (test code = 91732-5) Abnormal [facility] (ALB, T.PRO, BILI T, BU/BC, ALT, AST, ALK PHOS)2020-01-22 21:23:00* Test Item Value Reference Range Interpretation Comme nts TOTAL BILI (test code = 8239301690) 1.0 mg/dL 0.1-1.1 BILI UNCON (test code = 2176641687) 0.9 mg/dL 0.1-1.1 BILI CONJ (test code = 7864781908) 0.0 mg/dL 0-0.3 T PROTEIN (test code = 7169757311) 8.5 g/dL 6.3-8.2 H ALBUMIN (test code = 4247519645) 5.4 g/dL 3.5-5 H ALK PHOS (test code = 8240773141) 57 U/L 34-122 ALTv (test code = 1742-6) 28 U/L 5-50 AST(SGOT) (test code = 8637877581) 33 U/L 13-40 Lab Interpretation (test cod e = 95968-9) Abnormal [facility] HospitalCREATINE [id number] 21:23:00* Test Item Value Reference Range Interpretation Comme nts CK (test code = 5544131617) 410 U/L 33-194 H Lab Interpretation (test cod e = 50581-5) Abnormal [facility]CBC WITH [id number] 21:19:00* Test Item Value Reference Range Interpretation [...] 34.1 g/dL 31.2-35 RDW-SD (test code = 82869-6) 44.7 fL 38.5-51.6 RDW-CV (test code = 788-0) 12.6 % 12.1-15.4 PLT (test code = 777-3) See_Comment [Automated messa ge] The system which generated this result transmitted reference range: 150 - 328 10*3/?L. The reference range was not used to interpret this result as normal/abnormal. MPV (test code = 59475-8) 9.8 fL 9.8-13 NRBC/100 WBC (test code = 3265718210) See_Comment [Automated [employer] ssage] The system which generated this result transmitted reference range: 0.0 - 10.0 /100 WBCs. The reference range was not used to interpret this result as normal/abnormal. NRBC x10^3 (test code = 3906458605) <0.01 See_Comment [Automated messa ge] The system which generated this result transmitted reference range: 10*3/?L. The reference range was not used to interpret this result as normal/abnormal. GRAN MAT (NEUT) % (test code = 770-8) 78.7 % IMM GRAN % (test code = 9683852576) 0.40 % LYMPH % (test code = 736-9) 12.1 % MONO % (test code = 5905-5) 8.1 % EOS % (test code = 713-8) 0.2 % BASO % (test code = 706-2) 0.5 % GRAN MAT x10^3(ANC) (test code = 3960819076) 6.33 10*3/uL 1.99-6.95 IMM GRAN x10^3 (test code = 2578086588) 0.03 10*3/uL 0-0.06 LYMPH x10^3 (test code = 731-0) 0.97 10*3/uL 1.09-3.23 L MONO x10^3 (test code = 742-7) 0.65 10*3/uL 0.36-1.02 EOS x10^3 (test code = 711-2) <0.03 0.06-0.53 L BASO x10^3 (test code = 704-7) 0.04 10*3/uL 0.01-0.09 Lab Interpretation (test code = 73985-9) Abnormal [facility] HospitalCOVID[facility] (ID NOW RAPID TESTING)2020-01-10 02:17:00* Test Item Value Reference Range Interpretation Comme nts SARS-CoV-2 Rapid ID NOW (test code = 35717-3) Not Detected Not Detected JAZZMINE (test code = JAZZMINE) ID NOW COVID-19 As say is an isothermal nucleic acid amplification test intended for the qualitative detection of nucleic acid from SARS-CoV-2 viral RNA in nasopharyngeal (MULTICULTURAL MANAGER) specimens. It is used under Emergency Use [...] clinically indicated. Lab Interpretation (test code = 40384-6) Normal [facility] HospitalTROPONIN [id number] 02:14:00* Test Item Value Reference Range Interpretation Comme nts TROPONIN I (test code = 9760011442) <0.012 See_Comment [Automated message] The system which [...] biotin. ? Lab Interpretation (test code = 49768-3) Normal [facility] WO [id number] 02:13:58No acute findings. HISTORY:Altered mental status (AMS), [...] extracranial tissues demonstrate no acute findings.IMPRESSIONNo acute findings.[facility] / [facility] - DRUG SCREEN [id number] 02:10:00* Test Item Value Reference Range Interpretation Comme nts BENZO U (test code = 2001433494) Negative Negative GUIDO U (test code = 6787161811) Negative Negative AMPHET (test code = 5001782137) Presumptive Positive Negative A THC (test code = 6338347734) Presumptive Positive Negative A Confirmation of Presumptive Positive THC result requires physician order. METHADONE (test code = 0876908989) Negative Negative Meth U (test code = 3232477689) Presumptive Positive Negative A OPIATES (test code = 2812283257) Negative Negative Cocaine Metabolite (test code = 0287870673) Negative Negative PROPOXY (test code = 0002199310) Negative Negative Tric U (test code = 7302802339) Negative Negative PCP (test code = 9205417453) Negative Negative OXYCOD (test code = 7155575120) Negative Negative JAZZMINE (test code = JAZZMINE) [...] legal testing). Lab Interpretation (test code = 71594-0) Abnormal [facility]. METABOLIC PANEL (04803)2020-01-10 02:02:00* Test Item Value Reference Range Interpretation Comme nts NA (test code = 1127276724) 139 mmol/L 135-145 K (test code = 5834925290) 4.2 mmol/L 3.5-5 CL (test code = 8012686901) 104 mmol/L 98-108 CO2 TOTAL (test code = 8469077984) 27 mmol/L 23-31 AGAP (test code = 1956582811) 2-16 BUN (test code = 3043115722) 20 mg/dL 7-23 GLUCOSE (test code = 2819160681) 119 mg/dL 70-110 H CREATININE (test code = 8444745988) 0.81 mg/dL 0.6-1.25 TOTAL BILI (test code = 8326509624) 0.3 mg/dL 0.1-1.1 CALCIUM (test code = 8263677507) 9.4 mg/dL 8.6-10.6 T PROTEIN (test code = 9011985248) 7.5 g/dL 6.3-8.2 ALBUMIN (test code = 3764616733) 4.6 g/dL 3.5-5 ALK PHOS (test code = 5062892894) 66 U/L 34-122 ALTv (test code = 1742-6) 22 U/L 5-50 AST(SGOT) (test code = 5017828221) 23 U/L 13-40 eGFR Calculation (Non-) (test code = 7682600407) mL/min/1.73m2 eGFR Calculation () (test code = 6361643215) mL/min/1.73m2 JAZZMINE (test code = JAZZMINE) Association [...] imaging tests). Lab Interpretation (test code = 23421-4) Abnormal [facility] HospitalLIPASE2020-05-29 02:02:00* Test Item Value Reference Range Interpretation Comme nts LIPASE (test code = 0839850058) 64 U/L 0-220 Lab Interpretation (test cod e = 71257-4) Normal [facility] HospitalMAGNESIUM2020-05-29 02:02:00* Test Item Value Reference Range Interpretation Comme nts MAGNESIUM (test code = 0369836335) 2.0 mg/dL 1.7-2.4 Lab Interpretation (test cod e = 30290-1) Normal [facility] HospitalCBC WITH [id number] 01:51:00* Test Item Value Reference Range Interpretation Comme nts WBC (test code = 6690-2) See_Comment [Automated [employer]] The system which generated this result transmitted reference range: 4.20 - 10.70 10*3/?L. The reference range was not used to interpret this result as normal/abnormal. RBC (test code = 789-8) See_Comment [Automated [employer]] The system which generated this result transmitted [...] 34.6 g/dL 31.2-35 RDW-SD (test code = 44234-6) 43.4 fL 38.5-51.6 RDW-CV (test code = 788-0) 12.4 % 12.1-15.4 PLT (test code = 777-3) See_Comment [Automated messa ge] The system which generated this result transmitted reference range: 150 - 328 10*3/?L. The reference range was not used to interpret this result as normal/abnormal. MPV (test code = 72772-2) 9.9 fL 9.8-13 NRBC/100 WBC (test code = 8420602124) See_Comment [Automated [employer] ssage] The system which generated this result transmitted reference range: 0.0 - 10.0 /100 WBCs. The reference range was not used to interpret this result as normal/abnormal. NRBC x10^3 (test code = 7236616444) <0.01 See_Comment [Automated messa ge] The system which generated this result transmitted reference range: 10*3/?L. The reference range was not used to interpret this result as normal/abnormal. GRAN MAT (NEUT) % (test code = 770-8) 74.9 % IMM GRAN % (test code = 1240094901) 0.70 % LYMPH % (test code = 736-9) 15.6 % MONO % (test code = 5905-5) 7.8 % EOS % (test code = 713-8) 0.4 % BASO % (test code = 706-2) 0.6 % GRAN MAT x10^3(ANC) (test code = 4572002064) 5.28 10*3/uL 1.99-6.95 IMM GRAN x10^3 (test code = 0475245642) 0.05 10*3/uL 0-0.06 LYMPH x10^3 (test code = 731-0) 1.10 10*3/uL 1.09-3.23 MONO x10^3 (test code = 742-7) 0.55 10*3/uL 0.36-1.02 EOS x10^3 (test code = 711-2) 0.03 10*3/uL 0.06-0.53 L BASO x10^3 (test code = 704-7) 0.04 10*3/uL 0.01-0.09 Lab Interpretation (test code = 03695-0) Abnormal [facility] History and Physical Notes Date/Time Note [...] completed and signed. Karl Hagan Mai, DO Pickle Processor, PGY-4 Associated attestation - Maury Hamilton MD - 03/12/2024 4:57 PM CDT I agree with the note as written Maury Hamilton M.D. Interventional Cardiology Pager: [phone] IM-CARDIOVASCULAR DISEASE [facility] 2024-03-11 20:17:21 KOJO Crouch H&P Date of [...] was stented but per card on hand- [employer] by Dr. Magaña in [facility] [phone]. Past Medical: Past Medical History: Diagnosis Date [...] LISINOPRIL ORAL Take by mouth. Doctor Unassigned, [place] nisoldipine (SULAR ORAL) Take 20 mg by mouth daily. Doctor Unassigned, [place] Surgical History: Past Surgical History: Procedure Laterality [...] Lor Agarwal MD Internal Medicine- PGY3 Pager: [phone] 03/11/2024 ____ END OF H&P MEDICATIONS: Scheduled [...] Brilinta). Troponin elevation is mostly type II LA secondary to uncontrolled HTN working with medical [...] the patient on 03/12/2024. Bell Almonte MD Hydrodynamics Professor Department of Internal Medicine Division of Cardiovascular Medicine [facility] Procedure Notes Date/Time Note Provider Source 2024-03-12 17:50:25 Left Heart Cath/Coronary Angiography Andreea Rai Date of Service: 03/12/2024 5:50 PM Attending faculty: Maury Hamilton MD Fellow: Dr Stein Referring Physician: Dr. Almonte Procedures Performed: LHC/Coronary angiogram: CPT 83700 IVUS single vessel: CPT 30674 Indication/Diagnosis: NSTEMI and Hypertensive emergency. Consent: Risks, benefits, alternatives and complications of the procedure discussed with the patient, who understood and agreed to proceed. Aseptic technique: Chlorprep Local Anesthesia: 1% lidocaine without epinephrine Sedation: Moderate Access site: Right radial artery Closure Method: TR band Sterile dressing: yes Complications: none Procedures: After patient identification/verification, the patient was thereafter transferred to the engineer geophysical laboratory table. The access site was prepped and [...] level of supervision. IVUS: We used 6 Tristanian JR4 guide to engage the RCA. We [...] MD 03/12/2024 5:50 PM IM-INTERVENTIONAL CARDIOLOGY STAFF [facility]
[2024-08-12] MEDS ORDERED: DIAZEPAM 10 MG/2 ML INJ SYRINGE ONE (22:04)
[2024-08-12] MEDS ORDERED: ONDANSETRON 4 MG/2 ML VIAL ONE (22:05)
[2024-08-12] MEDS ORDERED: MORPHINE 4 MG/ML SYR ONE (22:05)
[2024-08-12 22:15] LABS: Absolute Eosinophils 0.2 K/uL (0-0.5); Absolute Lymphocytes (CBC) 1.3 K/uL (0.7-4.9); Absolute Monocytes 0.8 K/uL (0.1-1.3); Absolute Neutrophil 4.3 K/uL (1.8-8.0); Basophils % 0.8 % (0-1.3); Eosinophils % 2.3 % (0-4.4); Hematocrit 42.1 % (39.6-49.0); Hemoglobin 14.5 g/dL (13.6-17.9); MCH 33.2 pg (27.0-35.0); MCHC 34.6 g/dL (32.0-36.0); MPV 7.5 fL (7.6-11.3); Monocytes % 11.9 % (3.3-12.3); Platelets 317 thou/uL (152-406); RBC Red Blood Cell Count 4.38 M/uL (4.33-5.43); Red Cell Distribution Width 13.3 % (12.1-15.2)
[2024-08-12 22:36] LABS: ALT/SGPT 26 U/L (16-61); Albumin/Globulin Ratio 1.1 (1.1-1.8); Alkaline Phosphatase 64 U/L (45-117); Anion Gap 11.9 mEq/L (5.0-15.0); BUN Blood Urea Nitrogen 9 mg/dL (7-18); Bicarbonate 23 mEq/L (21-32); Bilirubin Total 0.2 mg/dL (0.2-1.0); Globulin 3.5 g/dL (2.3-3.5); Glomerular Filtration Rate 102 ml/min (=/>90); Glucose Level 156 mg/dL (74-106); NT PRO-BNP 20 pg/mL (<125); Protein, Total 7.5 g/dL (6.4-8.2); Sodium Level 139 mEq/L (136-145); Troponin High Sensitivity 20.4 pg/mL (<58.9)
--- NOTE | 2024-08-12 22:36 | RAD REPORT ---
EXAM: Chest Single View HISTORY: CHEST PAIN COMPARISON: 08/12/2024 FINDINGS: LUNGS/PLEURA: The lungs are clear. No pleural effusions or pneumothorax. No pulmonary edema. MEDIASTINUM: The mediastinal silhouette is within normal limits. CARDIAC: The cardiac silhouette is within normal limits. UPPER ABDOMEN: No significant abnormality. BONES: No acute abnormality. LINES/TUBES/OTHER: N/A IMPRESSION: No evidence of acute cardiopulmonary disease.
[2024-08-12 22:38] LABS: AST/SGOT < 10 U/L (15-37); Potassium 3.9 mEq/L (3.5-5.1)
--- NOTE | 2024-08-12 23:32 | EDPHYS ---
Physician Documentation [facility] Name: Byron Rai Age: 49 yrs Sex: Male : 1975 Arrival Date: 08/12/2024 Time: 21:39 Bed 7 Private MD: ED Physician Darrius Tolbert HPI: 08/12 22:16 This 49 yrs old Male presents to ER via EMS with complaints of Chest Pain. dr5 22:16 Onset: The symptoms/episode began/occurred 2 hour(s) ago. Associated signs and dr5 symptoms: Pertinent positives: chest pain. Modifying factors: the patient symptoms are aggravated by Cocaine Use. Patient is a 49-year-old male with history of hypertension, hypothyroidism, hyperlipidemia, and cardiac stent coming in for acute chest pain radiating down left arm after taking a line of cocaine about 1 hour prior to arrival. Patient reports previous cocaine use with the same Chest pain. EMS gave aspirin and nitroglycerin prior to arrival with mild relief of pain.. Historical: - Home Meds: 22:23 Brilinta oral [Active]; lisinopril 40 mg Oral tablet daily [Active]; ay - PMHx: 22:23 Hypercholesterolemia; Hypertensive disorder; Hypothyroidism; ay - PSHx: 22:23 cardiac stent (yr); pannulectomy (yr); ay - Immunization history:: Adult Immunizations up to date. - Infectious Disease History:: Denies. - Social history:: Smoking status: Reported history of juuling and/or vaping. ROS: 22:16 Constitutional: as per hpi dr5 Exam: 22:16 Constitutional: This is a well developed, well nourished patient who is awake, alert, dr5 and in no acute distress. Head/Face: Normocephalic, atraumatic. Eyes: Pupils equal round and reactive to light, extra-ocular motions intact. Lids and lashes normal. Conjunctiva and sclera are non-icteric and not injected. Cornea within normal limits. Periorbital areas with no swelling, redness, or edema. Neck: Trachea midline, no thyromegaly or masses palpated, and no cervical lymphadenopathy. Supple, full range of motion without nuchal rigidity, or vertebral point tenderness. No Meningismus. Chest/axilla: Normal chest wall appearance and motion. Nontender with no deformity. No lesions are appreciated. Cardiovascular: Regular rate and rhythm with a normal S1 and S2. Normal PMI, no JVD. No pulse deficits. Respiratory: Lungs have equal breath sounds bilaterally, clear to auscultation. No rales, rhonchi or wheezes noted. No increased work of breathing, no retractions or nasal flaring. Back: No spinal tenderness. No costovertebral tenderness. Full range of motion. Skin: Warm, dry with normal turgor. Normal color with no rashes, no lesions, and no evidence of cellulitis. MS/ Extremity: Pulses equal, no cyanosis. Neurovascular intact. Full, normal range of motion. Neuro: Awake and alert, GCS 15, oriented to person, place, time, and situation. Cranial nerves II-XII grossly intact. Motor strength 5/5 in all extremities. Sensory grossly intact. Cerebellar exam normal. Normal gait. Vital Signs: 21:15 BP 127 / 73; Pulse 92; Resp 20 S; Temp 98.6; Pulse Ox 95% on R/A; ay 22:40 BP 162 / 119; Pulse 96; Resp 16; Pulse Ox 98% on 2 lpm NC; ay 23:42 BP 165 / 91; Pulse 101; Resp 18; Temp 98.6; Pulse Ox 100% ; Pain 0/10; bm8 23:42 Pain Scale: Adult bm8 [place] Coma Score: 22:28 Eye Response: spontaneous(4). Motor Response: obeys commands(6). Verbal Response: ay oriented(5). Total: 15. 23:42 Eye Response: spontaneous(4). Motor Response: obeys commands(6). Verbal Response: bm8 oriented(5). Total: 15. MDM: 21:44 Medical Screening Exam initiated dr5 22:16 Differential diagnosis: ACS, STEMI, NSTEMI. Data reviewed: vital signs, nurses notes. dr5 23:44 Consideration of Admission/Observation Escalation of care including dr5 admission/observation considered. Patient was likely going to be admitted for ACS workup. . Historians other than the Patient: Family Member: Sister. Care significantly affected by the following chronic conditions: Diabetes, Hypertension, Cardiac stent, hypothyroidism. Care significantly affected by the following Social Determinants of Health: Poor access to healthcare and/or lack of insurance, Poor access to transportation, Problems related to employment. Counseling: I had a detailed discussion with the patient and/or guardian regarding the historical points, exam findings, and any diagnostic results supporting the discharge/admit diagnosis, the presence of at least one elevated blood pressure reading (>120/80) during this emergency department visit, to return to the emergency department if symptoms worsen or persist or if there are any questions or concerns that arise at home. Refusal of service: The patient/guardian displays adequate decision making capability and despite a detailed discussion of alternatives, benefits, risks, and consequences refuses: Admission to the hospital for further work-up and treatment, all lab tests. Special discussion: Based on the patient's history, exam, and Dx evaluation, there is no indication for emergent intervention or inpatient Tx. It is understood by the patient/guardian that if the Sx's persist or worsen they need to return immediately for re-evaluation. ED course: Patient became paranoid of staff members and stated he did not trust the hospital. I had staff call sister to come helper marble finisher with anxiety and paranoia that patient was exhibiting I gave the patient ice chips for comfort. Patient states that he still wants to leave. He understands the risks of leaving and the need to be admitted. Patient reports that he will have his sister drive him to a hospital in [place]. I attempted to convince patient otherwise but patient refused to stay. AMA paperwork filled out and signed by myself, nurse, and patient.. 08/12 21:54 Order name: CBC with Diff; Complete Time: 22:08/12 21:54 Order name: NT PRO-BNP; Complete Time: 22:08/12 21:54 Order name: Troponin HS; Complete Time: :08/12 21:54 Order name: CMP; Complete Time: 22:38 08/12 21:54 Order name: XRAY Chest (1 view); Complete Time: 22:38 08/12 21:54 Order name: EKG; Complete Time: :08/12 21:54 Order name: Cardiac monitoring; Complete Time: 22:08/12 21:54 Order name: EKG - Nurse/Tech; Complete Time: 22:08/12 21:54 Order name: IV Saline Lock; Complete Time: 22:08/12 21:54 Order name: Labs collected and sent; Complete Time: 22:08/12 21:54 Order name: O2 Per Protocol; Complete Time: :07 dr5 08/12 21:54 Order name: O2 Sat Monitoring; Complete Time: : dr5 EC:44 Rate is 111 beats/min. Rhythm is regular. QRS Golden is Normal. CO interval is normal at dr5 174 msec. QRS interval is normal at 80 msec. QT interval is normal at 322 msec. Administered Medications: 22:11 Drug: morphine IVP or IV 4 mg IVP once over 4 mins Route: IVP; Infused Over: 4 mins; bm8 Site: left antecubital; 22:46 Follow up: Response: No adverse reaction bm8 22:11 Drug: Ondansetron IVP 4 mg IVP once; over 2 minutes Route: IVP; Site: left antecubital; bm8 22:46 Follow up: Response: No adverse reaction bm8 22:11 Drug: Diazepam IVP 5 mg IVP once Route: IVP; Site: left antecubital; bm8 22:45 Follow up: Response: No adverse reaction bm8 Disposition Summary: 08/12/24 23:31 Left Against Medical Advice Notes: Location: Home dr5 Problem: new dr5 Symptoms: are unchanged dr5 Condition: Stable dr5 Diagnosis - Chest pain, unspecified dr5 Followup: dr5 - With: Emergency Department - When: As needed - Reason: Worsening of condition Followup: dr5 - With: Private Physician - When: 1 - 2 days - Reason: Recheck today's complaints, Continuance of care, Re-evaluation by your physician Discharge Instructions: - Discharge Summary Sheet dr5 - Nonspecific Chest Pain, Adult dr5 Addendum: 08/14/2024 06:43 Co-signature as Attending Physician, Darrius Tolbert MD I agree with the assessment and c nelson plan of care. Signatures: Dispatcher [employer] Darrius Alvarado MD MD cha McDonald, Brad, RN RN bm8 Gordon Isbell, CRISTAL-C STENOTYPIST-Cdr5 Musa Mcclellan RN RN ay Corrections: (The following items were deleted from the chart) 08/12 23:22 22:16 This 49 yrs old Male presents to ER via EMS with complaints of Chest dr5 Pain. dr5
--- NOTE | 2024-08-12 23:32 | ER ---
Nurse's Notes [facility] Name: Byron Rai Age: 49 yrs Sex: Male : 1975 Arrival Date: 08/12/2024 Time: 21:39 Bed 7 Private MD: Diagnosis: Chest pain, unspecified Presentation: 08/12 21:15 Chief complaint: EMS states: Chest Pain. ay 21:15 Coronavirus screen: Client denies travel out of the [place] in the last 14 days. Ebola ay Screen: No symptoms or risks identified at this time. 21:15 Method Of Arrival: EMS: [facility] ay 21:15 Initial Sepsis Screen: Does the patient meet any 2 criteria? No. Patient's initial ay sepsis screen is negative. Does the patient have a suspected source of infection? No. Patient's initial sepsis screen is negative. Risk Assessment: Do you want to hurt yourself or someone else? Patient reports no desire to harm self or others. Note Pt came in with a c/o chest pain 9/10, SOB after taking cocaine. Alert and oriented x4, on cardiac cath tech. Onset of symptoms was August 12, 2024. 21:15 Acuity: XOCHILT 2 ay Triage Assessment: 22:23 General: Appears in no apparent distress. uncomfortable, Behavior is cooperative, ay anxious, restless. Pain: Complains of pain in chest Pain currently is 9 out of 10 on a pain scale. EENT: No signs and/or symptoms were reported regarding the EENT system. Neuro: Level of Consciousness is awake, alert, obeys commands, Oriented to person, place, time, situation, Speech is normal. Cardiovascular: Heart tones Capillary refill < 3 seconds Rhythm is sinus tachycardia. Respiratory: Airway is patent Respiratory effort is even, unlabored, Respiratory pattern is regular. GI: Abdomen is round Bowel sounds present X 4 quads. : No signs and/or symptoms were reported regarding the genitourinary system. Derm: No signs and/or symptoms reported regarding the dermatologic system. Musculoskeletal: No signs and/or symptoms reported regarding the musculoskeletal system. Historical: - Home Meds: 22:23 Brilinta oral [Active]; lisinopril 40 mg Oral tablet daily [Active]; ay - PMHx: 22:23 Hypercholesterolemia; Hypertensive disorder; Hypothyroidism; ay - PSHx: 22:23 cardiac stent (yr); pannulectomy (yr); ay - Immunization history:: Adult Immunizations up to date. - Infectious Disease History:: Denies. - Social history:: Smoking status: Reported history of juuling and/or vaping. Screenin:28 [facility] ED Fall Risk Assessment (Adult) History of falling in the last 3 months, ay including since admission No falls in past 3 months (0 pts) Confusion or Disorientation No (0 pts) Intoxicated or Sedated No (0 pts) Impaired Gait No (0 pts) Mobility Assist Device Used No (0 pt) Altered Elimination No (0 pt) Score/Fall Risk Level 0 - 2 = Low Risk Oriented to surroundings, Maintained a safe environment, Educated pt \T\ family on fall prevention, incl call for assistance when getting out of bed. Abuse screen: Denies threats or abuse. Nutritional screening: No deficits noted. Tuberculosis screening: No symptoms or risk factors identified. Assessment: 22:28 General: See Triage notes. Pain: Complains of pain in chest Pain radiates to abdomen ay Pain began 2 hours ago. 23:42 Reassessment: Patient appears in no apparent distress at this time. Patient and/or bm8 family updated on plan of care and expected duration. Pain level reassessed. Patient is alert, oriented x 3, equal unlabored respirations, skin warm/dry/pink. pt stated that since he was feeling better he wanted to leave NOW!. provider informed and pt signed AMA form Patient denies pain at this time. Patient states feeling better. Vital Signs: 21:15 BP 127 / 73; Pulse 92; Resp 20 S; Temp 98.6; Pulse Ox 95% on R/A; ay 22:40 BP 162 / 119; Pulse 96; Resp 16; Pulse Ox 98% on 2 lpm NC; ay 23:42 BP 165 / 91; Pulse 101; Resp 18; Temp 98.6; Pulse Ox 100% ; Pain 0/10; bm8 23:42 Pain Scale: Adult bm8 Ben Coma Score: 22:28 Eye Response: spontaneous(4). Motor Response: obeys commands(6). Verbal Response: ay oriented(5). Total: 15. 23:42 Eye Response: spontaneous(4). Motor Response: obeys commands(6). Verbal Response: bm8 oriented(5). Total: 15. ED Course: 21:15 Patient has correct armband on for positive identification. Bed in low position. Call ay light in reach. Side rails up X2. Provided Education on: plan of care. fisheries technician on. Pulse ox on. NIBP on. 21:15 Maintain EMS IV. Dressing intact. Good blood return noted. Site clean \T\ dry. Flushed ay with 10 mL NS IV Changed dressing on Flushed right. Oxygen administration via nasal cannula \T\ 2L/min. 21:40 Patient arrived in ED. [email or web address] 21:43 [facility]C [facility]5 21:43 Darrius Tolbert MD is Attending Physician. dr5 22:11 Musa Mcclellan RN is Primary Nurse. ay 22:23 Triage completed. ay 22:23 Arm band placed on right wrist. EKG completed in triage. Results shown to MD. ay 22:34 XRAY Chest (1 view) In Process Unspecified. EDMS 23:42 No provider procedures requiring assistance completed. IV discontinued, intact, bm8 bleeding controlled, No redness/swelling at site. Pressure dressing applied. Administered Medications: 22:11 Drug: morphine IVP or IV 4 mg IVP once over 4 mins Route: IVP; Infused Over: 4 mins; bm8 Site: left antecubital; 22:46 Follow up: Response: No adverse reaction bm8 22:11 Drug: Ondansetron IVP 4 mg IVP once; over 2 minutes Route: IVP; Site: left antecubital; bm8 22:46 Follow up: Response: No adverse reaction bm8 22:11 Drug: Diazepam IVP 5 mg IVP once Route: IVP; Site: left antecubital; bm8 22:45 Follow up: Response: No adverse reaction bm8 Medication: 22:28 VIS not applicable for this client. ay Outcome: 23:42 AMA AMA form signed bm8 23:42 Condition: stable 23:42 Instructed on follow up and referral plans. no drinking with medication, no driving heavy equipment, safety practices, stop using cocaine! 23:45 Patient left the ED. bm8 Signatures: Dispatcher [employer] EDMS Judy Medina [email or web address] Terry May, RN RN bm8 Isbell, Gordon, DATABASE MANAGEMENT SPECIALIST-C DATABASE MANAGEMENT SPECIALIST-Cdr5 Yakubu, Awudu, RN RN ay
[2024-08-13 07:56] VITALS: BP 165/91; TEMP 98.6; O2SAT 100
--- NOTE | 2024-08-15 12:11 | EKG ---
Test Date: 2024-08-12 Test Time: 21:44:48 Movie Projectionist: RV MEASUREMENT RESULTS: Intervals: Rate: 111 SC: 174 QRSD: 80 QT: 322 QTc: 437 [place]: P: 28 SC: 174 QRS: 262 T: 38 INTERPRETIVE STATEMENTS: Sinus tachycardia Right ventricular hypertrophy Possible Lateral infarct, age undetermined Abnormal ECG Compared to ECG 08/12/2024 00:27:27 Right ventricular hypertrophy now present Myocardial infarct finding now present Sinus rhythm no longer present Left anterior fascicular block no longer present Electronically Signed On 08-15-24 12:10:07 COMMUNITY AFFAIRS DIRECTOR by Grey Magaña
== END 2024-08-12 23:45 | disposition left against medical advice (07) ==
LOC: ER 21:39
DX: R07.9 Chest pain, unspecified (principal); F14.90 Cocaine use, unspecified, uncomplicated; E78.00 Pure hypercholesterolemia, unspecified; I10 Essential (primary) hypertension; E03.9 Hypothyroidism, unspecified; F17.290 Nicotine dependence, other tobacco product, uncomplicated; Z53.29 Procedure and treatment not carried out because of patient's decision for other reasons
CPT/HCPCS: 93005; 85025; 36415; 84484; 80053; 83880; 71045; 96375 ×2; 96374; 99285; J3360; J2405